=== PATIENT | male | born 1935 | race Hispanic/Latino ===

== ENCOUNTER 2017-05-06 07:07 | Day surgery (SDC) | payer MEDICARE ==
[2017-05-06] MEDS ORDERED: Lactated Ringer's 500 ML IV ONE (07:37)
[2017-05-06] MEDS ORDERED: Propofol 10 mg/ml Inj (20 ML) ONE (07:46)
[2017-05-06] MEDS ORDERED: Etomidate 20 mg/10ml Inj IV ONE (07:46)
[2017-05-06] MEDS ORDERED: Midazolam 2 MG/2 ML VIAL ONE (07:46)
[2017-05-06 08:48] LABS: BASO % 0.4 % (0.0-2.0); EOS % 0.6 % (0.0-4.0); HEMATOCRIT 32.2 % (35.0-51.0); LYMPH # 0.9 K/uL (1.0-4.3); LYMPH % 11.3 % (20.0-40.0); MEAN CELL VOLUME 76.8 fl (80.0-94.0); MEAN CORPUSCULAR HEMOGLOBIN 23.1 pg (27.0-31.0); MEAN CORPUSCULAR HGB CONC 30.1 g/dL (33.0-37.0); MEAN PLATELET VOLUME 8.3 fl (7.2-11.7); MONO # 0.7 K/uL (0.0-0.8); MONO % 9.4 % (0.0-10.0); NEUT % 78.3 % (50.0-75.0); RED CELL DISTRIBUTION WIDTH 16.7 % (11.5-14.5); WHITE BLOOD COUNT 7.6 K/uL (4.8-10.8)
[2017-05-06 09:00] LABS: ALKALINE PHOSPHATASE 80 U/L (38-126); ALT/SGPT 28 U/L (21-72); AST/SGOT 22 U/L (17-59); BILIRUBIN,TOTAL 0.6 mg/dl (0.2-1.3); BLOOD UREA NITROGEN 26 mg/dl (9-20); CARBON DIOXIDE 30 mmol/L (22-30); CHLORIDE 103 mmol/L (98-107); GFR AFRICAN-AMERICAN > 60; GLUCOSE,RANDOM 96 mg/dL (75-110); POTASSIUM 4.9 MMOL/L (3.6-5.0); SODIUM 146 mmol/l (132-148); TOTAL PROTEIN 7.6 G/DL (6.3-8.2)
[2017-05-06 09:06] LABS: PARTIAL THROMBOPLASTIN TIME 27.2 Seconds (25.6-37.1)
[2017-05-06 11:19] VITALS: O2SAT 100
[2017-05-06 11:28] VITALS: BP 117/56; PULSE 113; RESP 24; TEMP 97
== END 2017-05-06 12:29 | disposition home or self-care (01) ==
LOC: H.ENDO 07:07
PROVIDERS: ATTEND Internal Medicine Gastroenterology
DX: K86.1 Other chronic pancreatitis (principal); R63.4 Abnormal weight loss; I48.91 Unspecified atrial fibrillation; E78.5 Hyperlipidemia, unspecified; I10 Essential (primary) hypertension; J43.9 Emphysema, unspecified; K57.30 Diverticulosis of large intestine without perforation or abscess without bleeding; K64.2 Third degree hemorrhoids; D49.0 Neoplasm of unspecified behavior of digestive system; D12.5 Benign neoplasm of sigmoid colon
CPT/HCPCS: 36415; 43239; 45380; 45385; 80053; 85025; 85610; 85730; 88305; J2001; J2250; J2704; J3010; J7120

== ENCOUNTER 2017-05-20 12:51 | Day surgery (SDC) | payer MEDICARE ==
[2017-05-20] MEDS ORDERED: ceFAZolin 1 GM in Sodium Chloride 0.9% 100 ML IVPB ONE (15:10)
[2017-05-20] MEDS ORDERED: Lidocaine 1% Inj (20ml) ONE (15:12)
[2017-05-20] MEDS ORDERED: Lidocaine 2% w Epi 1:100,000 Inj IJ ONE (15:12)
--- NOTE | 2017-05-20 15:13 | CP.SDSHP ---
Same Day Surgery H & P - History Proposed Procedure: Port placement Pre-Op Diagnosis: Colon cancer - Allergies Allergies: Allergies No Known Allergies Allergy (Verified 08/30/16 14:24) - Physical Exam Vital Signs: Vital Signs 05/20/17 05/20/17 13:34 13:38 Temperature 98.2 F Pulse Rate 98 H Pulse Rate [ 98 H Bilateral Radial] Respiratory 20 20 Rate Blood Pressure 126/75 O2 Sat by Pulse 100 100 Oximetry Mental Status: Alert & Oriented x3 Neuro: WNL Heart: WNL Lungs: WNL GI: WNL - Impression Impression: Pt with colon cancer referred for port placement. Plan port placement. Informed consent and risk of bleeding, infection, port incision dehiscence explained to the patient. Pt. Evaluated Today:Candidate for Anesthesia & Procedure: Yes (ASA 3 Malampati 3) Short Stay Discharge - Short Stay Discharge Admitting Diagnosis/Reason for Visit: COLON CA, C18.9 Referrals: Solomon Alamo MD [Primary Care Provider] -
[2017-05-20] MEDS ORDERED: Propofol 10 mg/ml Inj (20 ML) ONE (15:43)
[2017-05-20] MEDS ORDERED: Metoprolol 1 mg/ml Inj IVP ONE (15:47)
--- NOTE | 2017-05-20 16:18 | PCM.SURG1 ---
Surgeon's Initial Post Op Note - Surgeon's Notes Surgeon: Lionel Lambert MD Power Generation Technician: None Type of Anesthesia: IV Sedation Pre-Operative Diagnosis: Colon cancer Operative Findings: Patent right IJV Post-Operative Diagnosis: Colon cancer Operation Performed: Port placement right IJV. Tip on catheter is in the SVC. Specimen/Specimens Removed: None Estimated Blood Loss: EBL {In ML}: 4 Blood Products Given: N/A Drains Used: No Drains Post-Op Condition: Fair Date of Surgery/Procedure: 05/20/17 Time of Surgery/Procedure: 16:15
[2017-05-20] MEDS ORDERED: Lactated Ringer's 1,000 ML IV ONE (16:25)
[2017-05-20 18:29] VITALS: BP 116/78; PULSE 99; RESP 18; TEMP 98
[2017-05-20 18:33] VITALS: O2SAT 94
--- NOTE | 2017-05-21 11:46 | VASCULAR ---
PROCEDURE: Date of procedure: 05/20/2017 Procedure: 1. Placement of a right IJ port catheter with ultrasound and fluoroscopic guidance, CPT 04189 2. Catheter tip confirmation with spot radiograph in the superior vena cava. Medications: The patient was sedated anesthesiologist along with monitoring, Ancef 1 gm, Lidocaine 8 cc 1% w Epinephrine HISTORY: Colon cancer requiring port for chemotherapy TECHNIQUE: Following informed consent the procedure time-out, patient was placed supine on the interventional table and the right neck and chest were prepped and draped in the usual sterile fashion. Ultrasound showed a compressible right internal jugular vein. After the patient was sedated by the anesthesiologist, the skin anesthetized with 1% lidocaine with epinephrine. Under direct ultrasound guidance, the right internal jugular vein was accessed with micropuncture technique. A guidewire was then advanced under fluoroscopic guidance into the superior vena cava. An image documenting ultrasound guidance for vascular access was permanently saved. The subcutaneous tissue of patient right chest was infiltrated with 1 percent lidocaine with epinephrine. A dermatotomy was made with a 15. Scalpel. The port pocket was then created with blunt dissection using a Mattie clamp. The port pocket was flushed. A port catheter was then tunneled under the skin and out the venotomy site. The port catheter was flushed, advanced through a peel-away sheath, adjusted for length, and attached to the port. The port was placed in the port pocket. The port was flushed and locked with heparin. The port pocket was then closed with absorbable 4-0 Vicryl sutures. The port pocket and the venotomy site were reprepped with ChloraPrep. Steri-Strips were then applied to the port incision also venotomy site. A sterile dressing was then applied. Final spot radiograph showed the right IJ port catheter with tip of the port catheter in the superior vena cava. A port is functional and ready for use. IMPRESSION: Placement of right IJ port catheter. The tip of the port is in the superior vena cava.
== END 2017-05-20 18:50 | disposition home or self-care (01) ==
LOC: H.OPSURG 12:51
PROVIDERS: ATTEND Specialist
DX: C18.9 Malignant neoplasm of colon, unspecified (principal); I48.91 Unspecified atrial fibrillation; E78.5 Hyperlipidemia, unspecified; I10 Essential (primary) hypertension
CPT/HCPCS: 36415; 36561; 76937; 77001; 85610; 85730; C1751; J0690; J2001; J2704; J3010; J7120

== ENCOUNTER 2017-05-21 09:00 | Inpatient (IN) | payer MEDICARE ==
[2017-05-21 08:41] VITALS: BMI 25.0
[2017-05-21 09:53] LABS: BASO # 0.1 K/uL (0.0-0.2); BASO % 0.9 % (0.0-2.0); EOS # 0.1 K/uL (0.0-0.7); EOS % 1.4 % (0.0-4.0); HEMATOCRIT 28.9 % (35.0-51.0); LYMPH # 1.3 K/uL (1.0-4.3); LYMPH % 19.6 % (20.0-40.0); MEAN CELL VOLUME 75.5 fl (80.0-94.0); MEAN CORPUSCULAR HEMOGLOBIN 23.9 pg (27.0-31.0); MEAN CORPUSCULAR HGB CONC 31.7 g/dL (33.0-37.0); MEAN PLATELET VOLUME 8.7 fl (7.2-11.7); MONO # 0.6 K/uL (0.0-0.8); MONO % 8.8 % (0.0-10.0); NEUT # 4.6 K/uL (1.8-7.0); NEUT % 69.3 % (50.0-75.0); NRBC % 0.1 % (0.0-0.0); RED CELL DISTRIBUTION WIDTH 17.6 % (11.5-14.5); WHITE BLOOD COUNT 6.7 K/uL (4.8-10.8)
[2017-05-21] MEDS: Sodium Chloride 0.9% 500 ML IV SCH ×2 (10:00→17:38)
[2017-05-21] MEDS ORDERED: Lidocaine/Prilocaine CREAM 5GM TP SCH (10:00)
[2017-05-21] MEDS ORDERED: Fosaprepitant 150 MG in Sodium Chloride 0.9% 250 ML IVPB SCH (10:00)
[2017-05-21] MEDS ORDERED: Dexamethasone 10 MG in Sodium Chloride 0.9% 50 ML IVPB SCH (10:00)
[2017-05-21 10:12] LABS: ALKALINE PHOSPHATASE 82 U/L (38-126); ALT/SGPT 26 U/L (21-72); AST/SGOT 20 U/L (17-59); BILIRUBIN,TOTAL 0.4 mg/dl (0.2-1.3); BLOOD UREA NITROGEN 27 mg/dl (9-20); CALCIUM 9.4 mg/dL (8.4-10.2); CARBON DIOXIDE 29 mmol/L (22-30); CHLORIDE 102 mmol/L (98-107); GFR AFRICAN-AMERICAN > 60; GLUCOSE,RANDOM 126 mg/dL (75-110); SODIUM 144 mmol/l (132-148); TOTAL PROTEIN 7.1 G/DL (6.3-8.2)
[2017-05-21] MEDS ORDERED: WATER IVPB SCH (10:15)
[2017-05-21] MEDS ORDERED: LEUCOVORIN CALCIUM IVPB SCH (10:15)
[2017-05-21] MEDS ORDERED: DEXTROSE 5% IVPB SCH (10:15)
[2017-05-21] MEDS ORDERED: OXALIPLATIN IV SCH (10:30)
[2017-05-21] MEDS ORDERED: DEXTROSE 5% IV SCH (10:30)
[2017-05-21] MEDS ORDERED: WATER IV SCH (10:30)
[2017-05-21 10:41] LABS: CARCINOEMBRYONIC ANTIGEN 17.7 ng/mL (0-3.0)
[2017-05-21] MEDS ORDERED: FLUOROURACIL IV SCH ×2 (11:30→11:45)
[2017-05-21] MEDS ORDERED: SODIUM CHLORIDE 0.9% IV SCH ×2 (11:30→11:45)
[2017-05-21] MEDS: Pantoprazole 40 mg EC Tab PO SCH (13:45)
--- NOTE | 2017-05-21 14:34 | CP.PCM.PN ---
Objective - Vital Signs/Intake and Output Vital Signs (last 24 hours): Temp Pulse Resp BP Pulse Ox 97.5 F L 87 20 116/66 96 05/21/17 13:44 05/21/17 13:44 05/21/17 13:44 05/21/17 13:44 05/21/17 13:44 - Medications Medications: Current Medications Amylase (Pancrease 16857 U-5000 U-06513 U) 5,000 u PO DAILY [facility] Atorvastatin Calcium (Lipitor) 20 mg PO DAILY [facility] Enoxaparin Sodium (Lovenox) 40 mg SC DAILY [facility] PRN Reason: Protocol Home Med (Lipase/Protease/Amylase [Zenpep Dr 15,000 Units Capsule]) 1 cap PO DAILY [facility] Hydrochlorothiazide (Microzide) 12.5 mg PO DAILY [facility] Diphenhydramine HCl 25 mg/ (Sodium Chloride) 50.5 mls @ 101 mls/hr IVPB ONCE [facility] Stop: 05/21/17 17:00 Last Admin: 05/21/17 10:42 Dose: 101 mls/hr Dexamethasone 10 mg/ Sodium (Chloride) 51 mls @ 102 mls/hr IVPB ONCE [facility] Stop: 05/21/17 17:00 Last Admin: 05/21/17 10:40 Dose: 102 mls/hr Oxaliplatin 144 mg/ Dextrose 278.8 mls @ 139.4 mls/hr IV ONCE [facility] PRN Reason: As Directed Stop: 05/21/17 17:00 Last Admin: 05/21/17 13:08 Dose: 139.4 mls/hr Fosaprepitant 150 mg/ Sodium (Chloride) 250 mls @ 500 mls/hr IVPB ONCE [facility] Stop: 05/21/17 17:00 Last Admin: 05/21/17 12:05 Dose: 500 mls/hr Fluorouracil 680 mg/ Sodium (Chloride) 113.6 mls @ 227.2 mls/hr IV ONCE [facility] PRN Reason: As Directed Stop: 05/21/17 17:00 Leucovorin Calcium 680 mg/ (Dextrose) 284 mls @ 568 mls/hr IVPB ONCE [facility] PRN Reason: As Directed Stop: 05/21/17 17:00 Last Admin: 05/21/17 13:08 Dose: 568 mls/hr Sodium Chloride (Sodium Chloride 0.9%) 500 mls @ 80 mls/hr IV .Q6H15M [facility] Last Admin: 05/21/17 10:00 Dose: 80 mls/hr Ondansetron HCl 16 mg/ Sodium (Chloride) 58 mls @ 116 mls/hr IVPB ONCE [facility] Stop: 05/21/17 17:00 Last Admin: 05/21/17 10:15 Dose: 116 mls/hr Fluorouracil 4,080 mg/ Sodium (Chloride) 1,081.6 mls @ 24.582 mls/hr IV ONCE [facility] PRN Reason: As Directed Stop: 05/23/17 11:45 Famotidine 20 mg/ Sodium (Chloride) 52 mls @ 104 mls/hr IVP ONCE [facility] Stop: 05/21/17 17:00 Last Admin: 05/21/17 10:43 Dose: 104 mls/hr Lidocaine/Prilocaine (Lidocaine/Prilocaine 2.5%-2.5%) 1 applic TP ONCE [facility] Stop: 05/21/17 17:00 Losartan Potassium (Cozaar) 50 mg PO DAILY [facility] Metoprolol Tartrate (Lopressor) 25 mg PO Q12 [facility] Pantoprazole Sodium (Protonix Ec Tab) 40 mg PO DAILY [facility] - Labs Labs: 05/21/17 09:47 05/21/17 09:47
--- NOTE | 2017-05-21 15:11 | CP.PCM.CON ---
History of Present Illness - History of Present Illness History of Present Illness: This is a 81 yrs old male who is admitted for chemotherapy for colon cancer Pt was admitted to [facility] [place] twice during the last 5 months for abdominal pain. He was again admitted in march with overflow diarrhea. He had lost 30 lbs and was dehydrated. A colonoscopy was done and he was found to have a 10 cm mass in the rectosigmoid area. There was evidence of peripheral stranding in that area, and ? tiny nodules in the liver. It is unclear if these are tumor or ysts.. Because the tumor was inoperable, he is going to receive neoadjuvant chemotherapy with oxaliplatin .leucovorin, and fluorouracil. At this time he has no complaints, his appetite is slowly improving. He has a past h/o A fib, HTN, HE is not a smoker since the past 20 yrs. , He does have a h/o drinking moderate amounts of alcohol Past Patient History - Past Medical History & Family History Past Medical History?: Yes - Past Social History Smoking Status: Former Smoker - CARDIAC Hx Cardiac Disorders: Yes Hx Hypercholesterolemia: Yes Hx Hypertension: Yes - PULMONARY Hx Respiratory Disorders: Yes Hx Emphysema: Yes - NEUROLOGICAL Hx Neurological Disorder: No - HEENT Hx HEENT Problems: Yes Hx Cataracts: Yes (had sx) - RENAL Hx Chronic Kidney Disease: No - ENDOCRINE/METABOLIC Hx Endocrine Disorders: No - HEMATOLOGICAL/ONCOLOGICAL Hx Blood Disorders: Yes Hx Chemotherapy: Yes (started today 05/21/17) - INTEGUMENTARY Hx Dermatological Problems: No - MUSCULOSKELETAL/RHEUMATOLOGICAL Hx Musculoskeletal Disorders: No Hx Falls: No - GASTROINTESTINAL Hx Gastrointestinal Disorders: Yes Hx Pancreatitis: Yes (CHRONIC) - GENITOURINARY/GYNECOLOGICAL Hx Genitourinary Disorders: No - PSYCHIATRIC Hx Psychophysiologic Disorder: No Hx Emotional Abuse: No Hx Physical Abuse: No Hx Substance Use: No - SURGICAL HISTORY Hx Surgeries: Yes Other/Comment: hernia left inguinal,cataracts [place]orges - ANESTHESIA Hx Anesthesia: Yes Hx Anesthesia Reactions: No Hx Malignant Hyperthermia: No Meds Allergies/Adverse Reactions: Allergies Allergy/AdvReac Type Severity Reaction Status Date / Time No Known Allergies Allergy Verified 05/21/17 08:41 - Medications Medications: Current Medications Amylase (Pancrease 90893 U-5000 U-27807 U) 5,000 u PO DAILY [facility] Atorvastatin Calcium (Lipitor) 20 mg PO DAILY [facility] Enoxaparin Sodium (Lovenox) 40 mg SC DAILY [facility] PRN Reason: Protocol Home Med (Lipase/Protease/Amylase [Zenpep Dr 15,000 Units Capsule]) 1 cap PO DAILY [facility] Hydrochlorothiazide (Microzide) 12.5 mg PO DAILY [facility] Diphenhydramine HCl 25 mg/ (Sodium Chloride) 50.5 mls @ 101 mls/hr IVPB ONCE [facility] Stop: 05/21/17 17:00 Last Admin: 05/21/17 10:42 Dose: 101 mls/hr Dexamethasone 10 mg/ Sodium (Chloride) 51 mls @ 102 mls/hr IVPB ONCE [facility] Stop: 05/21/17 17:00 Last Admin: 05/21/17 10:40 Dose: 102 mls/hr Oxaliplatin 144 mg/ Dextrose 278.8 mls @ 139.4 mls/hr IV ONCE [facility] PRN Reason: As Directed Stop: 05/21/17 17:00 Last Admin: 05/21/17 13:08 Dose: 139.4 mls/hr Fosaprepitant 150 mg/ Sodium (Chloride) 250 mls @ 500 mls/hr IVPB ONCE [facility] Stop: 05/21/17 17:00 Last Admin: 05/21/17 12:05 Dose: 500 mls/hr Fluorouracil 680 mg/ Sodium (Chloride) 113.6 mls @ 227.2 mls/hr IV ONCE [facility] PRN Reason: As Directed Stop: 05/21/17 17:00 Leucovorin Calcium 680 mg/ (Dextrose) 284 mls @ 568 mls/hr IVPB ONCE [facility] PRN Reason: As Directed Stop: 05/21/17 17:00 Last Admin: 05/21/17 13:08 Dose: 568 mls/hr Sodium Chloride (Sodium Chloride 0.9%) 500 mls @ 80 mls/hr IV .Q6H15M [facility] Last Admin: 05/21/17 10:00 Dose: 80 mls/hr Ondansetron HCl 16 mg/ Sodium (Chloride) 58 mls @ 116 mls/hr IVPB ONCE [facility] Stop: 05/21/17 17:00 Last Admin: 05/21/17 10:15 Dose: 116 mls/hr Fluorouracil 4,080 mg/ Sodium (Chloride) 1,081.6 mls @ 24.582 mls/hr IV ONCE [facility] PRN Reason: As Directed Stop: 05/23/17 11:45 Famotidine 20 mg/ Sodium (Chloride) 52 mls @ 104 mls/hr IVP ONCE [facility] Stop: 05/21/17 17:00 Last Admin: 05/21/17 10:43 Dose: 104 mls/hr Lidocaine/Prilocaine (Lidocaine/Prilocaine 2.5%-2.5%) 1 applic TP ONCE [facility] Stop: 05/21/17 17:00 Losartan Potassium (Cozaar) 50 mg PO DAILY [facility] Metoprolol Tartrate (Lopressor) 25 mg PO Q12 [facility] Pantoprazole Sodium (Protonix Ec Tab) 40 mg PO DAILY [facility] Physical Exam - Additional Findings Additional findings: Physical Exam; Alert, well oriented, in no acute distress neck supple, no adenopathy Chest; Clear, no rales or rhonchi Heart; RSR, no murmur Abd; Soft, no mass. no h.s megaly Results - Vital Signs Recent Vital Signs: Last Vital Signs Temp 97.5 F L 05/21/17 13:44 Pulse 60 05/21/17 14:14 Resp 20 05/21/17 13:44 BP 116/66 05/21/17 13:44 Pulse Ox 96 05/21/17 13:44 - Labs Result Diagrams: 05/21/17 09:47 05/21/17 09:47 Labs: Laboratory Results - last 24 hr 05/21/17 05/21/17 09:47 09:47 WBC 6.7 RBC 3.83 L Hgb 9.2 L Hct 28.9 L MCV 75.5 L MCH 23.9 L MCHC 31.7 L RDW 17.6 H Plt Count 219 MPV 8.7 Neut % (Auto) 69.3 Lymph % (Auto) 19.6 L [place] % (Auto) 8.8 Eos % (Auto) 1.4 Baso % (Auto) 0.9 Neut # 4.6 Lymph # 1.3 Ada # 0.6 Eos # 0.1 Baso # 0.1 Sodium 144 Potassium 4.0 Chloride 102 Carbon Dioxide 29 Anion Gap 17 BUN 27 H Creatinine 0.8 Est GFR ( Amer) > 60 Est GFR (Non-Af Amer) > 60 Random Glucose 126 H Calcium 9.4 Total Bilirubin 0.4 AST 20 ALT 26 Alkaline Phosphatase 82 Total Protein 7.1 Albumin 3.5 Globulin 3.6 Albumin/Globulin Ratio 1.0 Carcinoembryonic Ag 17.7 H Assessment & Plan - Assessment and Plan (Free Text) Assessment: Impression; Colon cancer Plan: Plan; Will start pt on chemotherapy with FOLFOX today, and continue fluorouracil as continuous infusion over 44 hrs. - Date & Time Date: 05/21/17 Time: 16:10
[2017-05-21] MEDS ORDERED: Albuterol 0.083% Inhal Sol (2.5 mg/3 mL) UD INH PRN (15:15)
--- NOTE | 2017-05-21 17:21 | CP.PCM.HP ---
History of Present Illness - History of Present Illness History of Present Illness: 80 year old male with PMH of atrial fibrillation currently not on coumadin, HTN , HLD, and recently diagnosed colon CA on 05/06/17 admitted to [facility] for first cycle of chemotherapy. Pt had colonoscopy done on 05/06/17 which showed frond- like/villous, fungating, infiltrative and ulcerated partially obstructing 10 cm mass in the recto-sigmoid colon and sigmoid colon area. There was also 20 mm polyps found in the sigmoid colon. The biopsy showed colonic adenocarcinoma. Pt reports mild abdominal pain today. Denies diarrhea, constipation, rectal bleeding, fever, chills, nausea, vomiting, dizziness or headache. Pt reports decreased appetite but states it's improving. Pt is going to receive adjuvent chemotherapy with oxiplatin, leucovorin, and fluorouracil. PCP: Dr. Solomon Alamo ( no visit on eCW with Dr. Alamo) Patcher Bowling Ball: Dr. Laila Bermeo Protective Signal Repairer/Oncologist: Dr. Eduardo Bermeo PMH: Afib ( currently not on coumadin) HTN and HLD Meds: Metoprolol 25mg BID, Simvastatin 20mg daily, Valsartan-HCTZ 160-12.5 mg daily, Omeprazole 40 mg daily and zenpep 15,000 units capsule/day. Surgical Hx: Umbilical hernia repair 2006 and cataract surgery. Family Hx: father was diagnosed with colon CA at age 81 and paternal uncle diagnosed with lung CA at age 80. Social Hx: former smoker, quit 20 years ago, used to smoke 1 PPD x 40 years. Drinks alcohol socially. Denies drug use. Present on Admission - Present on Admission Any Indicators Present on Admission: Yes Review of Systems - Constitutional Constitutional: Anorexia, Weight Loss - EENT Eyes: absent: Other Visual Disturbances Ears: absent: Decreased Hearing Nose/Mouth/Throat: absent: Dysphagia - Cardiovascular Cardiovascular: Dyspnea on Exertion. absent: Chest Pain, Dyspnea - Respiratory Respiratory: absent: Cough, Dyspnea - Gastrointestinal Gastrointestinal: Abdominal Pain. absent: Diarrhea, Vomiting - Genitourinary Genitourinary: absent: Dysuria, Hematuria - Musculoskeletal Musculoskeletal: absent: Joint Swelling - Integumentary Integumentary: absent: Bleeding Lesions, Swelling - Neurological Neurological: absent: Dizziness, Headaches - Hematologic/Lymphatic Hematologic: absent: Easy Bleeding, Easy Bruising Past Patient History - Past Medical History & Family History Past Medical History?: Yes - Past Social History Smoking Status: Former Smoker - CARDIAC Hx Cardiac Disorders: Yes Hx Hypercholesterolemia: Yes Hx Hypertension: Yes - PULMONARY Hx Respiratory Disorders: Yes Hx Emphysema: Yes - NEUROLOGICAL Hx Neurological Disorder: No - HEENT Hx HEENT Problems: Yes Hx Cataracts: Yes (had sx) - RENAL Hx Chronic Kidney Disease: No - ENDOCRINE/METABOLIC Hx Endocrine Disorders: No - HEMATOLOGICAL/ONCOLOGICAL Hx Blood Disorders: Yes Hx Chemotherapy: Yes (started today 05/21/17) - INTEGUMENTARY Hx Dermatological Problems: No - MUSCULOSKELETAL/RHEUMATOLOGICAL Hx Musculoskeletal Disorders: No Hx Falls: No - GASTROINTESTINAL Hx Gastrointestinal Disorders: Yes Hx Pancreatitis: Yes (CHRONIC) - GENITOURINARY/GYNECOLOGICAL Hx Genitourinary Disorders: No - PSYCHIATRIC Hx Psychophysiologic Disorder: No Hx Emotional Abuse: No Hx Physical Abuse: No Hx Substance Use: No - SURGICAL HISTORY Hx Surgeries: Yes Other/Comment: hernia left inguinal,cataracts [place]es - ANESTHESIA Hx Anesthesia: Yes Hx Anesthesia Reactions: No Hx Malignant Hyperthermia: No Meds Allergies/Adverse Reactions: Allergies Allergy/AdvReac Type Severity Reaction Status Date / Time No Known Allergies Allergy Verified 05/21/17 08:41 Physical Exam - Constitutional Appears: No Acute Distress, Cachectic - Head Exam Head Exam: NORMAL INSPECTION, NORMOCEPHALIC - Eye Exam Eye Exam: Normal appearance - ENT Exam ENT Exam: Mucous Membranes Moist - Neck Exam Neck exam: Positive for: Normal Inspection - Respiratory Exam Respiratory Exam: Clear to Auscultation Bilateral, NORMAL BREATHING PATTERN. absent: Rales, Rhonchi, Wheezes - Cardiovascular Exam Cardiovascular Exam: REGULAR RHYTHM, RRR, +S1, +S2 - GI/Abdominal Exam GI & Abdominal Exam: Normal Bowel Sounds, Soft. absent: Tenderness - Extremities Exam Extremities exam: Positive for: normal capillary refill. Negative for: pedal edema - Neurological Exam Neurological exam: Alert, Normal Gait, Oriented x3 - Psychiatric Exam Psychiatric exam: Normal Affect, Normal Mood Results - Vital Signs Recent Vital Signs: Last Vital Signs Temp 97.6 F 05/21/17 16:28 Pulse 98 H 05/21/17 16:28 Resp 20 05/21/17 16:28 BP 120/75 05/21/17 16:28 Pulse Ox 97 05/21/17 16:28 - Labs Result Diagrams: 05/21/17 09:47 05/21/17 09:47 Labs: Laboratory Results - last 24 hr 05/21/17 05/21/17 09:47 09:47 WBC 6.7 RBC 3.83 L Hgb 9.2 L Hct 28.9 L MCV 75.5 L MCH 23.9 L MCHC 31.7 L RDW 17.6 H Plt Count 219 MPV 8.7 Neut % (Auto) 69.3 Lymph % (Auto) 19.6 L [place] % (Auto) 8.8 Eos % (Auto) 1.4 Baso % (Auto) 0.9 Neut # 4.6 Lymph # 1.3 [place] # 0.6 Eos # 0.1 Baso # 0.1 Sodium 144 Potassium 4.0 Chloride 102 Carbon Dioxide 29 Anion Gap 17 BUN 27 H Creatinine 0.8 Est GFR ( Amer) > 60 Est GFR (Non-Af Amer) > 60 Random Glucose 126 H Calcium 9.4 Total Bilirubin 0.4 AST 20 ALT 26 Alkaline Phosphatase 82 Total Protein 7.1 Albumin 3.5 Globulin 3.6 Albumin/Globulin Ratio 1.0 Carcinoembryonic Ag 17.7 H Assessment & Plan - Assessment and Plan (Free Text) Assessment: Assessment and plan: 81 y/o male PMH hx HTN, hyperlipidemia, atrial fibrillation and recently diagnosed with colon CA admitted to [facility] for chemotherapy. 1. Colon adenocarcinoma - Hematology/oncology Dr. Eduardo Bermeo on board. - Will received chemotherapy with oxaliplatin, leucovorin and fluorouracil. 2. Hypertension -Stable -Start HCTZ 12.5 mg PO daily -Start losartan 50 PO daily -Start metoprolol tartrate 25 mg PO BID 3. Hyperlipidemia -Start atrovastatin 20 mg po daily 4. Chronic gastritis -Start pantoprazole 40 mg PO daily. 5. History of atrial fibrillation -stable -not on coumadin 6. DVT prophylaxis - Lovenox 40 mg SC daily. Diet: heart healthy diet
[2017-05-21] MEDS: Enoxaparin 40 mg Syringe SC SCH (17:40)
[2017-05-22] MEDS: Benzocaine/Menthol (Cepacol) Lozenge PO PRN ×2 (00:46→05:18)
[2017-05-22] MEDS: Sodium Chloride 0.9% 500 ML IV SCH ×3 (05:15→09:40)
[2017-05-22 07:34] LABS: HEMATOCRIT 30.2 % (35.0-51.0); MEAN CELL VOLUME 79.3 fl (80.0-94.0); MEAN CORPUSCULAR HEMOGLOBIN 24.2 pg (27.0-31.0); MEAN CORPUSCULAR HGB CONC 30.6 g/dL (33.0-37.0); RED CELL DISTRIBUTION WIDTH 17.8 % (11.5-14.5); WHITE BLOOD COUNT 4.9 K/uL (4.8-10.8)
[2017-05-22 07:49] LABS: BLOOD UREA NITROGEN 27 mg/dl (9-20); CALCIUM 9.3 mg/dL (8.4-10.2); CARBON DIOXIDE 29 mmol/L (22-30); CHLORIDE 103 mmol/L (98-107); GFR AFRICAN-AMERICAN > 60; GLUCOSE,RANDOM 126 mg/dL (75-110); POTASSIUM 5.7 MMOL/L (3.6-5.0); SODIUM 144 mmol/l (132-148)
[2017-05-22 07:59] LABS: PARTIAL THROMBOPLASTIN TIME 27.8 Seconds (25.6-37.1)
--- NOTE | 2017-05-22 08:12 | CP.PCM.PN ---
Subjective - Date & Time of Evaluation Date of Evaluation: 05/22/17 Time of Evaluation: 08:11 - Subjective Subjective: Pt is on the second day of the fluorouracil infusion. He has not had any side effects from the chemo. He will be discharged tomorrow after the infusion finishes Objective - Vital Signs/Intake and Output Vital Signs (last 24 hours): Temp Pulse Resp BP Pulse Ox 97.8 F 96 H 20 143/83 98 05/22/17 08:04 05/22/17 08:04 05/22/17 08:04 05/22/17 08:04 05/22/17 08:04 - Medications Medications: Current Medications Albuterol Sulfate (Albuterol 0.083% Inhal [place] (2.5 Mg/3 Ml) Ud) 2.5 mg INH RQ6 PRN PRN Reason: Shortness of Breath Last Admin: 05/21/17 19:14 Dose: 2.5 mg Amylase (Pancrease 34796 U-5000 U-87002 U) 5,000 u PO DAILY [facility] Atorvastatin Calcium (Lipitor) 20 mg PO DAILY [facility] Last Admin: 05/21/17 13:45 Dose: Not Given Benzocaine/Menthol (Cepacol Sore Throat) 1 viry PO Q2 PRN PRN Reason: Sore Throat Last Admin: 05/22/17 05:18 Dose: 1 viry Enoxaparin Sodium (Lovenox) 40 mg SC DAILY [facility] PRN Reason: Protocol Last Admin: 05/21/17 17:40 Dose: 40 mg Home Med (Lipase/Protease/Amylase [Zenpep Dr 15,000 Units Capsule]) 1 cap PO DAILY [facility] Hydrochlorothiazide (Microzide) 12.5 mg PO DAILY [facility] Last Admin: 05/21/17 13:45 Dose: Not Given Sodium Chloride (Sodium Chloride 0.9%) 500 mls @ 80 mls/hr IV .Q6H15M [facility] Last Admin: 05/22/17 05:16 Dose: Not Given Fluorouracil 4,080 mg/ Sodium (Chloride) 1,081.6 mls @ 24.582 mls/hr IV ONCE [facility] PRN Reason: As Directed Stop: 05/23/17 11:45 Last Admin: 05/21/17 15:42 Dose: 24.582 mls/hr Losartan Potassium (Cozaar) 50 mg PO DAILY [facility] Last Admin: 05/21/17 13:45 Dose: Not Given Metoprolol Tartrate (Lopressor) 25 mg PO Q12 [facility] Last Admin: 05/21/17 21:27 Dose: 25 mg Pantoprazole Sodium (Protonix Ec Tab) 40 mg PO DAILY [facility] Last Admin: 05/21/17 13:45 Dose: Not Given - Labs Labs: 05/22/17 06:50 05/22/17 06:50 PT 12.1 Seconds (9.8-13.1) 05/22/17 06:50 INR 1.2 (0.9-1.2) 05/22/17 06:50 APTT 27.8 Seconds (25.6-37.1) 05/22/17 06:50
--- NOTE | 2017-05-22 08:52 | CP.PCM.PN ---
Subjective - Date & Time of Evaluation Date of Evaluation: 05/22/17 Time of Evaluation: 07:50 - Subjective Subjective: 81 yo male seen and examined at bedside this morning. Pt is eating and drinking regularly. Has normal BM and voiding. Denies nausea, vomiting, headache, dizzines, chest pain, dyspnea or any side effects from chemotherapy. Had uneventful night. vitals WNL. Objective - Vital Signs/Intake and Output Vital Signs (last 24 hours): Temp Pulse Resp BP Pulse Ox 97.8 F 96 H 20 143/83 98 05/22/17 08:04 05/22/17 08:04 05/22/17 08:04 05/22/17 08:04 05/22/17 08:04 - Medications Medications: Current Medications Albuterol Sulfate (Albuterol 0.083% Inhal [place] (2.5 Mg/3 Ml) Ud) 2.5 mg INH RQ6 PRN PRN Reason: Shortness of Breath Last Admin: 05/21/17 19:14 Dose: 2.5 mg Amylase (Pancrease 64255 U-5000 U-50954 U) 5,000 u PO DAILY [facility] Atorvastatin Calcium (Lipitor) 20 mg PO DAILY [facility] Last Admin: 05/21/17 13:45 Dose: Not Given Benzocaine/Menthol (Cepacol Sore Throat) 1 viry PO Q2 PRN PRN Reason: Sore Throat Last Admin: 05/22/17 05:18 Dose: 1 viry Enoxaparin Sodium (Lovenox) 40 mg SC DAILY [facility] PRN Reason: Protocol Last Admin: 05/21/17 17:40 Dose: 40 mg Home Med (Lipase/Protease/Amylase [Zenpep Dr 15,000 Units Capsule]) 1 cap PO DAILY [facility] Hydrochlorothiazide (Microzide) 12.5 mg PO DAILY [facility] Last Admin: 05/21/17 13:45 Dose: Not Given Sodium Chloride (Sodium Chloride 0.9%) 500 mls @ 80 mls/hr IV .Q6H15M [facility] Last Admin: 05/22/17 05:16 Dose: Not Given Fluorouracil 4,080 mg/ Sodium (Chloride) 1,081.6 mls @ 24.582 mls/hr IV ONCE [facility] PRN Reason: As Directed Stop: 05/23/17 11:45 Last Admin: 09/27/17 15:42 Dose: 24.582 mls/hr Losartan Potassium (Cozaar) 50 mg PO DAILY [facility] Last Admin: 05/21/17 13:45 Dose: Not Given Metoprolol Tartrate (Lopressor) 25 mg PO Q12 [facility] Last Admin: 05/21/17 21:27 Dose: 25 mg Pantoprazole Sodium (Protonix Ec Tab) 40 mg PO DAILY [facility] Last Admin: 05/21/17 13:45 Dose: Not Given - Labs Labs: 05/22/17 06:50 05/22/17 06:50 PT 12.1 Seconds (9.8-13.1) 05/22/17 06:50 INR 1.2 (0.9-1.2) 05/22/17 06:50 APTT 27.8 Seconds (25.6-37.1) 05/22/17 06:50 - Constitutional Appears: Well, No Acute Distress - Head Exam Head Exam: NORMAL INSPECTION - Eye Exam Eye Exam: Normal appearance - ENT Exam ENT Exam: Mucous Membranes Moist - Neck Exam Neck Exam: Normal Inspection - Respiratory Exam Respiratory Exam: Clear to Ausculation Bilateral. absent: Rales, Rhonchi, Wheezes - Cardiovascular Exam Cardiovascular Exam: REGULAR RHYTHM, RRR, +S1, +S2 - GI/Abdominal Exam GI & Abdominal Exam: Soft, Normal Bowel Sounds. absent: Tenderness - Extremities Exam Extremities Exam: Normal Capillary Refill. absent: Calf Tenderness, Pedal Edema - Neurological Exam Neurological Exam: Alert, Awake, Oriented x3 - Psychiatric Exam Psychiatric exam: Normal Affect, Normal Mood Assessment and Plan - Assessment and Plan (Free Text) Assessment: Assessment and plan: 81 y/o male PMH hx HTN, hyperlipidemia, atrial fibrillation and recently diagnosed with colon CA admitted to [facility] for chemotherapy. 1. 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 Eduardo Bermeo on board. - receiving 5-FU infusion( 2nd day). 2. Hyperkalemia -Asymptomatic -K 5.7 -repeat K -IV fluids -albuterol tx -decreased losartan to 25 mg today -will consider d/c losartan if potassium continues to increase/stay elevated. 3. Hypertension -Stable -Continue HCTZ 12.5 mg PO daily -Decrease losartan to 25 mg PO daily -Continue metoprolol tartrate 25 mg PO BID 4. Hyperlipidemia - Stopped atrovastatin 20 mg due to BMI and age. 5. Chronic gastritis -Continue pantoprazole 40 mg PO daily. 6. History of atrial fibrillation -stable -not on meds 7. DVT prophylaxis -Lovenox 40 mg SC daily. Diet: heart healthy diet
[2017-05-22] MEDS ORDERED: LIPASE PO SCH (09:00)
[2017-05-22] MEDS ORDERED: AMYLASE PO SCH (09:00)
[2017-05-22] MEDS ORDERED: PROTEASE PO SCH (09:00)
[2017-05-22] MEDS ORDERED: Albuterol 0.083% Inhal Sol (2.5 mg/3 mL) UD INH ONE (09:34)
[2017-05-22] MEDS: Amylase/Lipase/Protease 5,000 U ECC PO SCH (09:39)
[2017-05-22] MEDS: Pantoprazole 40 mg EC Tab PO SCH (09:39)
[2017-05-22] MEDS: Enoxaparin 40 mg Syringe SC SCH (09:39)
[2017-05-23 01:05] VITALS: RESP 19
[2017-05-23] MEDS: Sodium Chloride 0.9% 500 ML IV SCH (02:33)
[2017-05-23] MEDS: Benzocaine/Menthol (Cepacol) Lozenge PO PRN (04:44)
[2017-05-23 06:26] LABS: BLOOD UREA NITROGEN 35 mg/dl (9-20); CARBON DIOXIDE 29 mmol/L (22-30); CHLORIDE 101 mmol/L (98-107); GFR AFRICAN-AMERICAN > 60; GLUCOSE,RANDOM 109 mg/dL (75-110); SODIUM 141 mmol/l (132-148)
[2017-05-23 06:27] LABS: POTASSIUM 5.4 MMOL/L (3.6-5.0)
--- NOTE | 2017-05-23 07:56 | CP.PCM.PN ---
Subjective - Date & Time of Evaluation Date of Evaluation: 05/23/17 Time of Evaluation: 07:52 - Subjective Subjective: Pt has no nausea or vomiting during the chemotherapy . He has finished the fluorocil inrfusion, and can be discharged. He will return to the infusion center on 05/28/17 for a blood test and in 2 weeks for te ext course of chemotherapy. I would give him a prescription for a few tablets of zofran po in case he has any ausea at home. Objective - Vital Signs/Intake and Output Vital Signs (last 24 hours): Temp Pulse Resp BP Pulse Ox 98.0 F 91 H 19 120/81 98 05/23/17 00:00 05/23/17 00:00 05/23/17 00:00 05/23/17 00:00 05/23/17 00:00 - Medications Medications: Current Medications Albuterol Sulfate (Albuterol 0.083% Inhal [place] (2.5 Mg/3 Ml) Ud) 2.5 mg INH RQ6 PRN PRN Reason: Shortness of Breath Last Admin: 05/21/17 19:14 Dose: 2.5 mg Amylase (Pancrease 98058 U-5000 U-11032 U) 5,000 u PO DAILY [facility] Last Admin: 05/22/17 09:39 Dose: 5,000 u Benzocaine/Menthol (Cepacol Sore Throat) 1 viry PO Q2 PRN PRN Reason: Sore Throat Last Admin: 05/23/17 04:44 Dose: 1 viry Enoxaparin Sodium (Lovenox) 40 mg SC DAILY [facility] PRN Reason: Protocol Last Admin: 05/22/17 09:39 Dose: 40 mg Home Med (Lipase/Protease/Amylase [Zenpep Dr 15,000 Units Capsule]) 1 cap PO DAILY [facility] Hydrochlorothiazide (Microzide) 12.5 mg PO DAILY [facility] Last Admin: 05/22/17 09:39 Dose: 12.5 mg Fluorouracil 4,080 mg/ Sodium (Chloride) 1,081.6 mls @ 24.582 mls/hr IV ONCE [facility] PRN Reason: As Directed Stop: 05/23/17 11:45 Last Admin: 05/21/17 15:42 Dose: 24.582 mls/hr Sodium Chloride (Sodium Chloride 0.9%) 500 mls @ 100 mls/hr IV .Q[facility]H [facility] Last Admin: 05/23/17 02:33 Dose: Not Given Metoprolol Tartrate (Lopressor) 25 mg PO Q12 [facility] Last Admin: 05/22/17 20:50 Dose: 25 mg Pantoprazole Sodium (Protonix Ec Tab) 40 mg PO DAILY [facility] Last Admin: 05/22/17 09:39 Dose: 40 mg - Labs Labs: 05/22/17 06:50 05/23/17 05:50 PT 12.1 Seconds (9.8-13.1) 05/22/17 06:50 INR 1.2 (0.9-1.2) 05/22/17 06:50 APTT 27.8 Seconds (25.6-37.1) 05/22/17 06:50
[2017-05-23 07:58] VITALS: BP 101/63; PULSE 64; TEMP 97.5; O2SAT 97
[2017-05-23] MEDS: Enoxaparin 40 mg Syringe SC SCH (08:18)
[2017-05-23] MEDS: Pantoprazole 40 mg EC Tab PO SCH (08:19)
[2017-05-23] MEDS: Amylase/Lipase/Protease 5,000 U ECC PO SCH (08:19)
--- NOTE | 2017-05-23 12:26 | CP.PCM.DIS ---
Provider - Provider Date of Admission: 05/21/17 09:00 Attending physician: Dulce Maria Díaz MD Primary care physician: Solomon Alamo MD Consults: Clubhouse Manager/Oncologist: Dr. Eduardo Bermeo Time Spent in preparation of Discharge (in minutes): 30 Diagnosis - Discharge Diagnosis (1) Adenocarcinoma, colon Status: Acute Hospital Course - Lab Results Lab Results: Most Recent Lab Values WBC 4.9 K/uL (4.8-10.8) 05/22/17 06:50 RBC 3.80 Mil/uL (4.40-5.90) L 05/22/17 06:50 Hgb 9.2 g/dL (12.0-18.0) L 05/22/17 06:50 Hct 30.2 % (35.0-51.0) L 05/22/17 06:50 MCV 79.3 fl (80.0-94.0) L D 05/22/17 06:50 MCH 24.2 pg (27.0-31.0) L 05/22/17 06:50 MCHC 30.6 g/dL (33.0-37.0) L 05/22/17 06:50 RDW 17.8 % (11.5-14.5) H 05/22/17 06:50 Plt Count 222 K/uL (130-400) 05/22/17 06:50 MPV 8.7 fl (7.2-11.7) 05/21/17 09:47 Neut % (Auto) 69.3 % (50.0-75.0) 05/21/17 09:47 Lymph % (Auto) 19.6 % (20.0-40.0) L 05/21/17 09:47 [facility] % (Auto) 8.8 % (0.0-10.0) 05/21/17 09:47 Eos % (Auto) 1.4 % (0.0-4.0) 05/21/17 09:47 Baso % (Auto) 0.9 % (0.0-2.0) 05/21/17 09:47 Neut # 4.6 K/uL (1.8-7.0) 05/21/17 09:47 Lymph # 1.3 K/uL (1.0-4.3) 05/21/17 09:47 [facility] # 0.6 K/uL (0.0-0.8) 05/21/17 09:47 Eos # 0.1 K/uL (0.0-0.7) 05/21/17 09:47 Baso # 0.1 K/uL (0.0-0.2) 05/21/17 09:47 PT 12.1 Seconds (9.8-13.1) 05/22/17 06:50 INR 1.2 (0.9-1.2) 05/22/17 06:50 APTT 27.8 Seconds (25.6-37.1) 05/22/17 06:50 Sodium 141 mmol/l (132-148) 05/23/17 05:50 Potassium 5.4 MMOL/L (3.6-5.0) H 05/23/17 05:50 Chloride 101 mmol/L (98-107) 05/23/17 05:50 Carbon Dioxide 29 mmol/L (22-30) 05/23/17 05:50 Anion Gap 16 (10-20) 05/23/17 05:50 BUN 35 mg/dl (9-20) H 05/23/17 05:50 Creatinine 1.0 mg/dL (0.8-1.5) 05/23/17 05:50 Est GFR ( Amer) > 60 05/23/17 05:50 Est GFR (Non-Af Amer) > 60 05/23/17 05:50 Random Glucose 109 mg/dL (75-110) 05/23/17 05:50 Calcium 9.0 mg/dL (8.4-10.2) 05/23/17 05:50 Total Bilirubin 0.4 mg/dl (0.2-1.3) 05/21/17 09:47 AST 20 U/L (17-59) 05/21/17 09:47 ALT 26 U/L (21-72) 05/21/17 09:47 Alkaline Phosphatase 82 U/L (38-126) 05/21/17 09:47 Total Protein 7.1 G/DL (6.3-8.2) 05/21/17 09:47 Albumin 3.5 g/dL (3.5-5.0) 05/21/17 09:47 Globulin 3.6 gm/dL (2.2-3.9) 05/21/17 09:47 Albumin/Globulin Ratio 1.0 (1.0-2.1) 05/21/17 09:47 Carcinoembryonic Ag 17.7 ng/mL (0-3.0) H 05/21/17 09:47 - Hospital Course Hospital Course: 81 yo male with PMH of A-fib currently not on medication, HTN, chronic gastritis, hyperlipidemia and recently diagnosed colon CA (05/06/17) admitted to [facility] for 1st cycle of chemotherapy on 05/21/2017. Pt had no side effects from 5- FU infusions treatment. Tolerated chemotherapy well with no nausea or vomiting. Pt's BP was stable throughout the hospital stay. Pt was advised to stop taking valsartan/HCTZ 160 mg/12.5 mg and continue his rest of his home medications. Pt was advised to f/u with Dr. Antonio Bermeo (referral was given). Pt has appointment at infusion center on 05/28/17 for blood tests and will start another course of chemo in 2 weeks. Has an appointment with Dr. Kathie Loredo on 06/04/17 at 2:40 pm. Discharge Exam - Head Exam Head Exam: NORMAL INSPECTION - Eye Exam Eye Exam: Normal appearance - ENT Exam ENT Exam: Mucous Membranes Moist - Neck Exam Neck exam: Normal Inspection - Respiratory Exam Respiratory Exam: Clear to PA & Lateral, NORMAL BREATHING PATTERN. absent: Rhonchi, Wheezes - Cardiovascular Exam Cardiovascular Exam: REGULAR RHYTHM, RRR, +S1, +S2 Additional comments: port cath on right chest - GI/Abdominal Exam GI & Abdominal Exam: Normal Bowel Sounds, Soft. absent: Tenderness - Extremities Exam Extremities exam: normal capillary refill, normal inspection - Neurological Exam Neurological exam: Alert, Oriented x3 - Psychiatric Exam Psychiatric exam: Normal Affect, Normal Mood Discharge Plan - Discharge Medications Prescriptions: Metoprolol Tartrate [Lopressor] 25 mg PO Q12 #60 tab Ondansetron HCl [Zofran] 4 mg PO Q6 PRN #20 tablet PRN Reason: Nausea/Vomiting Simvastatin 20 mg PO ONCE #30 tablet - Follow Up Plan Condition: GOOD Disposition: HOME/ ROUTINE Instructions: Fluorouracil (By injection), Leucovorin (By injection), Oxaliplatin (By injection), Peripheral Intravenous Chemotherapy (DC) Additional Instructions: Appointment with Dr. Kathie Loredo at [facility] on 06/04/17 at 2:40 pm Return to infusion center may 4 for blood work and next course of chemotherapy Referrals: [facility] [Outside] You Bermeo MD [Staff Provider] - Solomon Alamo MD [Primary Care Provider] - Kathie Loredo MD [Resident] -
== END 2017-05-23 11:46 | disposition home or self-care (01) | DRG 847 ==
LOC: H.MEDSURG1 09:00
PROVIDERS: ADMIT Family Medicine Geriatric Medicine; ATTEND Family Medicine Geriatric Medicine
DX: Z51.11 Encounter for antineoplastic chemotherapy (principal); C19 Malignant neoplasm of rectosigmoid junction; E87.5 Hyperkalemia; I48.91 Unspecified atrial fibrillation; I10 Essential (primary) hypertension; K29.50 Unspecified chronic gastritis without bleeding; E78.5 Hyperlipidemia, unspecified; Z87.891 Personal history of nicotine dependence

== ENCOUNTER 2017-06-03 08:37 | Inpatient (IN) | payer MEDICARE ==
[2017-06-03] MEDS ORDERED: Oxycodone/Acetaminophen 5/325 mg Tab PO PRN (08:38)
--- NOTE | 2017-06-03 09:04 | CP.PCM.HP ---
History of Present Illness - History of Present Illness History of Present Illness: Aman Coffey is a 80 year old male with PMH of atrial fib currently not on coumadin, HTN, HLD, and recently diagnosed colon CA on 05/06/17 admitted to [facility] for chemotherapy. Pt had colonoscopy done on 05/06/17 which showed frond-like/ villous, fungating, infiltrative and ulcerated partially obstructing 10 cm mass in the recto-sigmoid colon and sigmoid colon area. There was also 20 mm polyps found in the sigmoid colon. The biopsy showed colonic adenocarcinoma. Pt reports Pt is going to receive adjuvant chemotherapy with:Oxaliplatin, Leucovorin, and Fluorouacil; Denies: SOB/CP/N/V/PARNELL PCP: Dr. Solomon Alamo Shim Plug Cutter: Dr. Laila Bermeo Hotel Housekeeper/Oncologist: Dr. Eduardo Bermeo PMH: Afib (currently not on coumadin) HTN and HLD Meds: Metoprolol 25mg BID, Simvastatin 20mg daily, Valsartan-HCTZ 160-12.5 mg daily, Famotidine Surgical Hx: Umbilical hernia repair 2006 and cataract surgery. Family Hx: father was dx with colon CA at age 81 and paternal uncle dx with lung CA at age 80. Social Hx: former smoker, quit 20 years ago, used to smoke 1 PPD x 40 years. Drinks alcohol socially. Denies drug use. Present on Admission - Present on Admission Any Indicators Present on Admission: No Past Patient History - Past Medical History & Family History Past Medical History?: Yes - Past Social History Smoking Status: Former Smoker - CARDIAC Hx Cardiac Disorders: Yes Hx Hypercholesterolemia: Yes Hx Hypertension: Yes - PULMONARY Hx Respiratory Disorders: Yes Hx Emphysema: Yes - NEUROLOGICAL Hx Neurological Disorder: No - HEENT Hx HEENT Problems: Yes Hx Cataracts: Yes (had sx) - RENAL Hx Chronic Kidney Disease: No - ENDOCRINE/METABOLIC Hx Endocrine Disorders: No - HEMATOLOGICAL/ONCOLOGICAL Hx Blood Disorders: Yes Hx Chemotherapy: Yes (started today 05/21/17) - INTEGUMENTARY Hx Dermatological Problems: No - MUSCULOSKELETAL/RHEUMATOLOGICAL Hx Musculoskeletal Disorders: No Hx Falls: No - GASTROINTESTINAL Hx Gastrointestinal Disorders: Yes Hx Pancreatitis: Yes (CHRONIC) - GENITOURINARY/GYNECOLOGICAL Hx Genitourinary Disorders: No - PSYCHIATRIC Hx Psychophysiologic Disorder: No Hx Emotional Abuse: No Hx Physical Abuse: No Hx Substance Use: No - SURGICAL HISTORY Hx Surgeries: Yes Other/Comment: hernia left inguinal,cataracts [place] - ANESTHESIA Hx Anesthesia: Yes Hx Anesthesia Reactions: No Hx Malignant Hyperthermia: No Meds Allergies/Adverse Reactions: Allergies Allergy/AdvReac Type Severity Reaction Status Date / Time No Known Allergies Allergy Verified 06/03/17 08:37 Physical Exam - Constitutional Appears: Well, No Acute Distress - Eye Exam Eye Exam: EOMI - Respiratory Exam Additional comments: expiratory stidor appreciated - Cardiovascular Exam Cardiovascular Exam: REGULAR RHYTHM, +S1, +S2 - GI/Abdominal Exam GI & Abdominal Exam: Normal Bowel Sounds, Soft - Psychiatric Exam Psychiatric exam: Normal Affect, Normal Mood Results - Labs Result Diagrams: 06/03/17 09:05 06/03/17 09:05 Assessment & Plan - Assessment and Plan (Free Text) Plan: Aman Coffey is a 80 year old male with PMH of atrial fib currently not on coumadin, HTN, HLD, and recently diagnosed colon CA on 05/06/17 admitted to [facility] for chemotherapy. 1. Colon adenocarcinoma - Hematology/oncology Dr. Eduardo Bermeo on board. - Will received chemotherapy with oxaliplatin, leucovorin and fluorouracil. 2. Hypertension -Stable -Continue HCTZ 12.5 mg PO daily -Continue valsartan 160 -Continue metoprolol tartrate 25 mg PO BID 3. Hyperlipidemia -Continue simvastatin 20 mg po daily 4. Chronic gastritis -Famotidine 5. History of atrial fibrillation -stable -not on coumadin 6. DVT prophylaxis - SCD Diet: heart healthy diet Alexandr Saeed, PGY1
[2017-06-03] MEDS: Sodium Chloride 0.9% 500 ML IV SCH ×2 (09:05→15:59)
[2017-06-03 09:09] LABS: EOS # 0.1 K/uL (0.0-0.7); EOS % 3.6 % (0.0-4.0); HEMATOCRIT 28.5 % (35.0-51.0); LYMPH # 1.3 K/uL (1.0-4.3); LYMPH % 35.8 % (20.0-40.0); MEAN CELL VOLUME 75.6 fl (80.0-94.0); MEAN CORPUSCULAR HEMOGLOBIN 23.8 pg (27.0-31.0); MEAN CORPUSCULAR HGB CONC 31.5 g/dL (33.0-37.0); MEAN PLATELET VOLUME 7.5 fl (7.2-11.7); MONO # 0.3 K/uL (0.0-0.8); MONO % 9.3 % (0.0-10.0); NEUT # 1.8 K/uL (1.8-7.0); NEUT % 50.3 % (50.0-75.0); NRBC % 0.2 % (0.0-0.0); RED CELL DISTRIBUTION WIDTH 17.6 % (11.5-14.5); WHITE BLOOD COUNT 3.5 K/uL (4.8-10.8)
[2017-06-03 09:19] LABS: ALB/GLOB RATIO 1.1 (1.0-2.1); ALKALINE PHOSPHATASE 94 U/L (38-126); ALT/SGPT 28 U/L (21-72); AST/SGOT 26 U/L (17-59); BILIRUBIN,TOTAL 0.3 mg/dl (0.2-1.3); BLOOD UREA NITROGEN 17 mg/dl (9-20); CALCIUM 9.3 mg/dL (8.4-10.2); CARBON DIOXIDE 28 mmol/L (22-30); CHLORIDE 105 mmol/L (98-107); GFR AFRICAN-AMERICAN > 60; GLUCOSE,RANDOM 98 mg/dL (75-110); POTASSIUM 4.2 MMOL/L (3.6-5.0); SODIUM 143 mmol/l (132-148); TOTAL PROTEIN 6.9 G/DL (6.3-8.2)
[2017-06-03] MEDS ORDERED: Dexamethasone 10 MG in Sodium Chloride 0.9% 50 ML IVPB ONE (09:45)
[2017-06-03] MEDS ORDERED: Lidocaine/Prilocaine CREAM 5GM TP ONE (09:45)
[2017-06-03] MEDS ORDERED: APREPITANT 125 MG CAP PO SCH (09:45)
--- NOTE | 2017-06-03 11:12 | CP.PCM.CON ---
History of Present Illness - History of Present Illness History of Present Illness: This is a 81 yrs old male who was found to have a recto-sigmoid mass about 11 cms in length. There was evidence of the tumor having infiltrated into the colonic wall. His appetite has improved but weight has not changed . He had a PET scan and was found to have positive nodes next to the colon and a few in the paraaortic area,No liver or lung metastasis.. He is here for the second dose of chemotherapy. He has a h/o hyperlipidemia, and A fib for which he was on coumadin for a while but since he was found to have rectal bleeding from the tumor, the anticoagulant was discontimued. Past Patient History - Past Medical History & Family History Past Medical History?: Yes - Past Social History Smoking Status: Former Smoker - CARDIAC Hx Cardiac Disorders: Yes Hx Hypercholesterolemia: Yes Hx Hypertension: Yes - PULMONARY Hx Respiratory Disorders: Yes Hx Emphysema: Yes - NEUROLOGICAL Hx Neurological Disorder: No - HEENT Hx HEENT Problems: Yes Hx Cataracts: Yes (had sx) - RENAL Hx Chronic Kidney Disease: No - ENDOCRINE/METABOLIC Hx Endocrine Disorders: No - HEMATOLOGICAL/ONCOLOGICAL Hx Blood Disorders: Yes Hx Chemotherapy: Yes (started today 05/21/17) - INTEGUMENTARY Hx Dermatological Problems: No - MUSCULOSKELETAL/RHEUMATOLOGICAL Hx Musculoskeletal Disorders: No Hx Falls: No - GASTROINTESTINAL Hx Gastrointestinal Disorders: Yes Hx Pancreatitis: Yes (CHRONIC) - GENITOURINARY/GYNECOLOGICAL Hx Genitourinary Disorders: No - PSYCHIATRIC Hx Psychophysiologic Disorder: No Hx Emotional Abuse: No Hx Physical Abuse: No Hx Substance Use: No - SURGICAL HISTORY Hx Surgeries: Yes Other/Comment: hernia left inguinal,cataracts [place] - ANESTHESIA Hx Anesthesia: Yes Hx Anesthesia Reactions: No Hx Malignant Hyperthermia: No Meds Allergies/Adverse Reactions: Allergies Allergy/AdvReac Type Severity Reaction Status Date / Time No Known Allergies Allergy Verified 06/03/17 08:37 - Medications Medications: Current Medications Sodium Chloride (Sodium Chloride 0.9%) 500 mls @ 100 mls/hr IV .Q5H [facility] Last Admin: 06/03/17 09:05 Dose: 100 mls/hr Oxaliplatin 144 mg/ Dextrose 278.8 mls @ 139.4 mls/hr IV ONCE ONE PRN Reason: As Directed Stop: 06/03/17 13:29 Fluorouracil 680 mg/ Sodium (Chloride) 113.6 mls @ 340.8 mls/hr IV ONCE ONE PRN Reason: As Directed Stop: 06/03/17 13:49 Leucovorin Calcium 680 mg/ (Dextrose) 284 mls @ 568 mls/hr IVPB ONCE ONE PRN Reason: As Directed Stop: 06/03/17 11:59 Fluorouracil 4,080 mg/ Sodium (Chloride) 1,081.6 mls @ 24.582 mls/hr IV ONCE ONE PRN Reason: As Directed Stop: 06/05/17 09:59 Ondansetron HCl (Zofran Inj) 4 mg IVP Q6 PRN PRN Reason: Nausea/Vomiting Oxycodone/Acetaminophen (Percocet 5/325 Mg Tab) 1 tab PO Q4 PRN PRN Reason: Pain, moderate (4-7) Stop: 06/06/17 08:39 Physical Exam - Additional Findings Additional findings: Physical Exam; Alert, well oriented in no acute distress neck supple, no adenopahty Chest; clear, no rales or rhonchi heart; RSR, no murmur Abd; Soft, no mass, no h/s megaly Results - Labs Result Diagrams: 06/03/17 09:05 06/03/17 09:05 Labs: Laboratory Results - last 24 hr 06/03/17 06/03/17 09:05 09:05 WBC 3.5 L RBC 3.76 L Hgb 9.0 L Hct 28.5 L MCV 75.6 L MCH 23.8 L MCHC 31.5 L RDW 17.6 H Plt Count 110 L D MPV 7.5 Neut % (Auto) 50.3 Lymph % (Auto) 35.8 [place] % (Auto) 9.3 Eos % (Auto) 3.6 Baso % (Auto) 1.0 Neut # 1.8 Lymph # 1.3 [place] # 0.3 Eos # 0.1 Baso # 0.0 Sodium 143 Potassium 4.2 Chloride 105 Carbon Dioxide 28 Anion Gap 14 BUN 17 Creatinine 0.8 Est GFR ( Amer) > 60 Est GFR (Non-Af Amer) > 60 Random Glucose 98 Calcium 9.3 Total Bilirubin 0.3 AST 26 ALT 28 Alkaline Phosphatase 94 Total Protein 6.9 Albumin 3.6 Globulin 3.3 Albumin/Globulin Ratio 1.1 Assessment & Plan - Assessment and Plan (Free Text) Assessment: Impreession; Colon cancer Plan: Plan; Will give oxaliplatin today, along with leucovorin and fluorouracil i. He will then start the 44 hr continuous infusion of fluorouracil after.aft
[2017-06-03] MEDS ORDERED: DEXTROSE 5% IVPB ONE ×5 (11:30→12:30)
[2017-06-03] MEDS ORDERED: WATER IV ONE (11:30)
[2017-06-03] MEDS ORDERED: OXALIPLATIN IV ONE (11:30)
[2017-06-03] MEDS ORDERED: LEUCOVORIN CALCIUM IVPB ONE ×5 (11:30→12:30)
[2017-06-03] MEDS ORDERED: DEXTROSE 5% IV ONE (11:30)
[2017-06-03] MEDS ORDERED: WATER IVPB ONE ×5 (11:30→12:30)
[2017-06-03] MEDS ORDERED: FLUOROURACIL IV ONE ×2 (13:30→14:00)
[2017-06-03] MEDS ORDERED: SODIUM CHLORIDE 0.9% IV ONE ×2 (13:30→14:00)
[2017-06-03] MEDS ORDERED: Patient's Own Med (Simvastatin [Simvastatin] 20 MG) PO SCH (19:30)
[2017-06-04 07:23] VITALS: RESP 20
[2017-06-04] MEDS ORDERED: APREPITANT 80 MG CAP PO ONE ×2 (08:05→09:00)
[2017-06-04] MEDS: Amylase/Lipase/Protease 5,000 U ECC PO SCH (08:22)
[2017-06-04] MEDS: Pantoprazole 20 mg EC Tab PO SCH (08:23)
[2017-06-04] MEDS ORDERED: AMYLASE PO SCH (09:00)
[2017-06-04] MEDS ORDERED: LIPASE PO SCH (09:00)
[2017-06-04] MEDS ORDERED: PROTEASE PO SCH (09:00)
[2017-06-04] MEDS: Sodium Chloride 0.9% 500 ML IV SCH (09:36)
--- NOTE | 2017-06-04 09:57 | CP.PCM.PN ---
Subjective - Date & Time of Evaluation Date of Evaluation: 06/04/17 Time of Evaluation: 09:50 - Subjective Subjective: Pt is doing well. He has a good appetite, and has not had any nausea and vomiting. he tolerates the chemotherapy well. I would like to get a surgicsl eval to see if he should get more chemo or if he is a candidate for surgery now. On 2nd day of fluorocil infusion. He can be discharged after he finishes the infusion tomorrow. Objective - Vital Signs/Intake and Output Vital Signs (last 24 hours): Temp Pulse Resp BP Pulse Ox 97.6 F 94 H 20 132/75 98 06/04/17 07:23 06/04/17 08:22 06/04/17 07:23 06/04/17 08:22 06/04/17 07:23 - Medications Medications: Current Medications Amylase (Pancrease 50181 U-5000 U-31791 U) 5,000 u PO DAILY [facility] Last Admin: 06/04/17 08:22 Dose: 5,000 u Home Med (Simvastatin [Simvastatin]) 20 mg PO ONCE [facility] Hydrochlorothiazide (Microzide) 12.5 mg PO DAILY [facility] Last Admin: 06/04/17 08:22 Dose: 12.5 mg Sodium Chloride (Sodium Chloride 0.9%) 500 mls @ 100 mls/hr IV .Q5H [facility] Last Admin: 06/04/17 09:36 Dose: Not Given Fluorouracil 4,080 mg/ Sodium (Chloride) 1,081.6 mls @ 24.582 mls/hr IV ONCE ONE PRN Reason: As Directed Stop: 06/05/17 09:59 Last Admin: 06/03/17 14:38 Dose: 24.582 mls/hr Metoprolol Tartrate (Lopressor) 25 mg PO Q12 [facility] Last Admin: 06/04/17 08:22 Dose: 25 mg Ondansetron HCl (Zofran Inj) 4 mg IVP Q6 PRN PRN Reason: Nausea/Vomiting Oxycodone/Acetaminophen (Percocet 5/325 Mg Tab) 1 tab PO Q4 PRN PRN Reason: Pain, moderate (4-7) Stop: 06/06/17 08:39 Pantoprazole Sodium (Protonix Ec Tab) 20 mg PO DAILY [facility] Last Admin: 10/11/17 08:23 Dose: 20 mg Valsartan (Diovan) 160 mg PO DAILY [facility] Last Admin: 06/04/17 08:22 Dose: 160 mg - Labs Labs: 06/03/17 09:05 06/03/17 09:05
--- NOTE | 2017-06-04 10:00 | CP.PCM.PN ---
Subjective - Date & Time of Evaluation Date of Evaluation: 06/04/17 Time of Evaluation: 08:45 - Subjective Subjective: Pt seen and examined at bedside resting well. Denies significant overnight events; Denies: PARNELL, blurred vision, N/V/D/C, Ambulating well. Positive affect. Objective - Vital Signs/Intake and Output Vital Signs (last 24 hours): Temp Pulse Resp BP Pulse Ox 97.6 F 94 H 20 132/75 98 06/04/17 07:23 06/04/17 08:22 06/04/17 07:23 06/04/17 08:22 06/04/17 07:23 - Medications Medications: Current Medications Amylase (Pancrease 64896 U-5000 U-81398 U) 5,000 u PO DAILY [facility] Last Admin: 06/04/17 08:22 Dose: 5,000 u Home Med (Simvastatin [Simvastatin]) 20 mg PO ONCE [facility] Hydrochlorothiazide (Microzide) 12.5 mg PO DAILY [facility] Last Admin: 06/04/17 08:22 Dose: 12.5 mg Sodium Chloride (Sodium Chloride 0.9%) 500 mls @ 100 mls/hr IV .Q5H [facility] Last Admin: 06/04/17 09:36 Dose: Not Given Fluorouracil 4,080 mg/ Sodium (Chloride) 1,081.6 mls @ 24.582 mls/hr IV ONCE ONE PRN Reason: As Directed Stop: 06/05/17 09:59 Last Admin: 06/03/17 14:38 Dose: 24.582 mls/hr Metoprolol Tartrate (Lopressor) 25 mg PO Q12 [facility] Last Admin: 06/04/17 08:22 Dose: 25 mg Ondansetron HCl (Zofran Inj) 4 mg IVP Q6 PRN PRN Reason: Nausea/Vomiting Oxycodone/Acetaminophen (Percocet 5/325 Mg Tab) 1 tab PO Q4 PRN PRN Reason: Pain, moderate (4-7) Stop: 06/06/17 08:39 Pantoprazole Sodium (Protonix Ec Tab) 20 mg PO DAILY [facility] Last Admin: 06/04/17 08:23 Dose: 20 mg Valsartan (Diovan) 160 mg PO DAILY [facility] Last Admin: 06/04/17 08:22 Dose: 160 mg - Labs Labs: 06/03/17 09:05 10/10/17 09:05 - Constitutional Appears: Well, Non-toxic - Eye Exam Eye Exam: EOMI, Normal appearance. absent: Periorbital tenderness - Neck Exam Neck Exam: Full ROM - Respiratory Exam Respiratory Exam: Clear to Ausculation Bilateral, NORMAL BREATHING PATTERN - Cardiovascular Exam Cardiovascular Exam: REGULAR RHYTHM, +S1, +S2 - GI/Abdominal Exam GI & Abdominal Exam: Soft, Normal Bowel Sounds - Neurological Exam Neurological Exam: Alert, Awake, CN II-XII Intact, Normal Gait, Oriented x3 - Psychiatric Exam Psychiatric exam: Normal Affect, Normal Mood Assessment and Plan - Assessment and Plan (Free Text) Plan: Aman Coffey is a 80 year old male with PMH of atrial fib currently not on coumadin, HTN, HLD, and recently diagnosed colon CA on 05/06/17 admitted to [facility] for chemotherapy. 1. Colon adenocarcinoma - Hematology/oncology Dr. Eduardo Bermeo on board. - Will received chemotherapy with oxaliplatin, leucovorin and fluorouracil. 2. Hypertension -Stable -Continue HCTZ 12.5 mg PO daily -Continue valsartan 160 -Continue metoprolol tartrate 25 mg PO BID 3. Hyperlipidemia -Continue simvastatin 20 mg po daily 4. Pancreatic enzymes -Continue meds 5. Chronic gastritis -Famotidine 6. Chronic anemia of unknown etiology -pending to follow up outpatient. -continue to monitor 7. History of atrial fibrillation -stable -not on coumadin 8. DVT prophylaxis - SCD -PT/OT consulted Diet: heart healthy diet Alexandr Saeed, PGY1
--- NOTE | 2017-06-04 11:26 | PQF GENQUE ---
Dr. Díaz, 2 (two) queries as follows: (1 )Is there an associated diagnosis to go along with the following clinical labs? (2) If yes: etiology/type; if known? WBC:3.5 RBC:3.76 H/H:9.0/28.5 Plt Count:110 H and P: dxs. include Colon CA: admitted for Chemotherapy This form is a permanent part of the medical record Clarification of your documentation is requested to better reflect the severity of illness and intensity of treatment of your patient. Indicators present [] Specify: [] [] Specify: [] [] Specify: [] [] Specify: [] Location in the medical record that reflects the above clinical findings: [] Treatment Provided: [] PHYSICIAN'S RESPONSE Based on your medical judgment of the clinical indicators outlined above please clarify the following: [] Practitioner response [] If unable to determine, please check the box, sign and date. Present On Admission (POA) Indicator: [] Present at the time of admission [] Not present at the time of admission [] Clinically Undetermined In responding to this query, please exercise your independent professional judgment. The fact that a question is asked does not imply that any particular answer is desired or expected. Thank you for your clarification on this documentation. If you have any questions please call. * Thank you, Radha Kent RN ext #[phone]: Hortencia Jones RN MTDD
--- NOTE | 2017-06-04 15:03 | CP.PCM.CON ---
History of Present Illness - History of Present Illness History of Present Illness: General Surgery consult for Dr. Santoyo Consulted for: colon cancer Patient is an 81M with colon cancer diagnosed approximately 1 month ago. Patient had a 40lb weight loss in one year and was referred for colonoscopy. The colonoscopy showed a 10cm mass in the rectum that was identified as adenocarcinoma on pathology. Patient is here for a 2nd round of chemotherapy which will be completed tomorrow. Primary wants patient to be evaluated for possible surgical intervention. Patient denies any constipation, diarrhea, melena, abdominal pain, nausea or vomiting. Patient reports occasional hematochezia d/t hemorrhoids. No other complaints or concerns. PMH: afib, HTN, HLD, colon cancer, pancreatitis PSH: umbilical hernia repair, cataracts All: NKDA Social: 40 year history of cigarette smoking, quite 20 years ago. ETOH socially. No drug use Review of Systems - Review of Systems All systems: reviewed and no additional remarkable complaints except (as per HPI ) - Constitutional Constitutional: Weight Loss. absent: Anorexia, Fever - Cardiovascular Cardiovascular: absent: Chest Pain, Chest Pain at Rest, Dyspnea - Respiratory Respiratory: absent: Cough, Dyspnea, Dyspnea on Exertion - Gastrointestinal Gastrointestinal: Hematochezia. absent: Abdominal Pain, Constipation, Diarrhea , Hematemesis, Nausea, Vomiting - Musculoskeletal Musculoskeletal: absent: Back Pain, Numbness, Tingling - Neurological Neurological: absent: Numbness, Tingling, Weakness Past Patient History - Past Medical History & Family History Past Medical History?: Yes - Past Social History Smoking Status: Former Smoker Alcohol: Social Drugs: Denies Home Situation {Lives}: With Family - CARDIAC Hx Cardiac Disorders: Yes Hx Hypercholesterolemia: Yes Hx Hypertension: Yes - PULMONARY Hx Respiratory Disorders: Yes Hx Emphysema: Yes - NEUROLOGICAL Hx Neurological Disorder: No - HEENT Hx HEENT Problems: Yes Hx Cataracts: Yes (had sx) - RENAL Hx Chronic Kidney Disease: No - ENDOCRINE/METABOLIC Hx Endocrine Disorders: No - HEMATOLOGICAL/ONCOLOGICAL Hx Blood Disorders: Yes Hx Chemotherapy: Yes (started today 05/21/17) - INTEGUMENTARY Hx Dermatological Problems: No - MUSCULOSKELETAL/RHEUMATOLOGICAL Hx Musculoskeletal Disorders: No Hx Falls: No - GASTROINTESTINAL Hx Gastrointestinal Disorders: Yes Hx Pancreatitis: Yes (CHRONIC) - GENITOURINARY/GYNECOLOGICAL Hx Genitourinary Disorders: No - PSYCHIATRIC Hx Psychophysiologic Disorder: No Hx Emotional Abuse: No Hx Physical Abuse: No Hx Substance Use: No - SURGICAL HISTORY Hx Surgeries: Yes Other/Comment: hernia left inguinal,cataracts [place] - ANESTHESIA Hx Anesthesia: Yes Hx Anesthesia Reactions: No Hx Malignant Hyperthermia: No Meds Allergies/Adverse Reactions: Allergies Allergy/AdvReac Type Severity Reaction Status Date / Time No Known Allergies Allergy Verified 06/03/17 08:37 - Medications Medications: Current Medications Amylase (Pancrease 88897 U-5000 [id number] U) 5,000 u PO DAILY [facility] Last Admin: 06/04/17 08:22 Dose: 5,000 u Home Med (Simvastatin [Simvastatin]) 20 mg PO ONCE [facility] Hydrochlorothiazide (Microzide) 12.5 mg PO DAILY [facility] Last Admin: 06/04/17 08:22 Dose: 12.5 mg Sodium Chloride (Sodium Chloride 0.9%) 500 mls @ 100 mls/hr IV .Q5H [facility] Last Admin: 06/04/17 09:36 Dose: Not Given Fluorouracil 4,080 mg/ Sodium (Chloride) 1,081.6 mls @ 24.582 mls/hr IV ONCE ONE PRN Reason: As Directed Stop: 06/05/17 09:59 Last Admin: 06/03/17 14:38 Dose: 24.582 mls/hr Metoprolol Tartrate (Lopressor) 25 mg PO Q12 [facility] Last Admin: 06/04/17 08:22 Dose: 25 mg Ondansetron HCl (Zofran Inj) 4 mg IVP Q6 PRN PRN Reason: Nausea/Vomiting Oxycodone/Acetaminophen (Percocet 5/325 Mg Tab) 1 tab PO Q4 PRN PRN Reason: Pain, moderate (4-7) Stop: 06/06/17 08:39 Pantoprazole Sodium (Protonix Ec Tab) 20 mg PO DAILY [facility] Last Admin: 06/04/17 08:23 Dose: 20 mg Valsartan (Diovan) 160 mg PO DAILY [facility] Last Admin: 06/04/17 08:22 Dose: 160 mg Physical Exam - Constitutional Appears: Non-toxic, No Acute Distress - Head Exam Head Exam: ATRAUMATIC, NORMOCEPHALIC - Eye Exam Eye Exam: Normal appearance. absent: Conjunctival injection, Scleral icterus - ENT Exam ENT Exam: Mucous Membranes Moist, Normal Oropharynx - Respiratory Exam Respiratory Exam: NORMAL BREATHING PATTERN. absent: Accessory Muscle Use, Respiratory Distress - Cardiovascular Exam Cardiovascular Exam: RRR - GI/Abdominal Exam GI & Abdominal Exam: Soft. absent: Distended, Mass, Tenderness - Rectal Exam Rectal Exam: NORMAL INSPECTION. absent: Black Stool, Hemorrhoids, Fecal Impaction Additional comments: prostate normal texture and size, no nodularity. No palpable rectal masses. Soft stool normal color, no earnest blood. Normal rectal tone - Extremities Exam Extremities exam: Negative for: calf tenderness, pedal edema, pedal pulses present - Neurological Exam Neurological exam: Alert, Oriented x3 - Psychiatric Exam Psychiatric exam: Normal Affect, Normal Mood - Skin Skin Exam: Dry, Normal Color, Warm Results - Vital Signs Recent Vital Signs: Last Vital Signs Temp 97.6 F 06/04/17 09:00 Pulse 94 H 06/04/17 09:00 Resp 20 06/04/17 09:00 BP 132/75 06/04/17 09:00 Pulse Ox 98 06/04/17 09:00 - Labs Result Diagrams: 06/03/17 09:05 06/03/17 09:05 Assessment & Plan - Assessment and Plan (Free Text) Assessment: 81M with colon cancer undergoing 2nd round of systemic chemotherapy Plan: -No immediate surgical intervention indicated at this time -Continue current medical management per primary and oncology -Dr. Santoyo will review patient's medical history and imaging and discuss recommendations with patient and oncology -Further recs per him Discussed with Dr. Natanael Chandra, PGY2
[2017-06-04] MEDS: Sodium Chloride 0.9% 1,000 ML IV SCH (16:30)
[2017-06-04] MEDS ORDERED: Chlorhexidine Gluconate 1 APPL/PKT TP ONE (17:59)
[2017-06-05 07:23] VITALS: BP 122/74; PULSE 86; TEMP 97.3; O2SAT 95
[2017-06-05] MEDS: Pantoprazole 20 mg EC Tab PO SCH (08:19)
[2017-06-05] MEDS: Amylase/Lipase/Protease 5,000 U ECC PO SCH (08:19)
[2017-06-05] MEDS: Sodium Chloride 0.9% 1,000 ML IV SCH (08:20)
--- NOTE | 2017-06-05 08:38 | CP.PCM.PN ---
Subjective - Date & Time of Evaluation Date of Evaluation: 06/05/17 Time of Evaluation: 08:32 - Subjective Subjective: Pt is afebrile, in no acute distress. He is almost done with his fluorouracil infusion. He may be discharged after that. He will return daily for 2 days for granix injections. Objective - Vital Signs/Intake and Output Vital Signs (last 24 hours): Temp Pulse Resp BP Pulse Ox 97.3 F L 86 20 122/74 95 06/05/17 07:23 06/05/17 07:23 06/05/17 07:23 06/05/17 07:23 06/05/17 07:23 - Medications Medications: Current Medications Amylase (Pancrease 83439 U-5000 U-[id number] U) 5,000 u PO DAILY [facility] Last Admin: 06/05/17 08:19 Dose: 5,000 u Atorvastatin Calcium (Lipitor) 10 mg PO HS [facility] Last Admin: 06/04/17 21:20 Dose: 10 mg Heparin Sodium (Porcine) (Heparin Lock Flush) 500 units IVF ONCE ONE Stop: 06/05/17 08:30 Hydrochlorothiazide (Microzide) 12.5 mg PO DAILY [facility] Last Admin: 06/05/17 08:19 Dose: 12.5 mg Fluorouracil 4,080 mg/ Sodium (Chloride) 1,081.6 mls @ 24.582 mls/hr IV ONCE ONE PRN Reason: As Directed Stop: 06/05/17 09:59 Last Admin: 06/03/17 14:38 Dose: 24.582 mls/hr Sodium Chloride (Sodium Chloride 0.9%) 1,000 mls @ 80 mls/hr IV .[id number] [facility] Stop: 06/05/17 16:22 Last Admin: 06/05/17 08:20 Dose: 80 mls/hr Metoprolol Tartrate (Lopressor) 25 mg PO Q12 [facility] Last Admin: 06/05/17 08:19 Dose: 25 mg Ondansetron HCl (Zofran Inj) 4 mg IVP Q6 PRN PRN Reason: Nausea/Vomiting Oxycodone/Acetaminophen (Percocet 5/325 Mg Tab) 1 tab PO Q4 PRN PRN Reason: Pain, moderate (4-7) Stop: 06/06/17 08:39 Pantoprazole Sodium (Protonix Ec Tab) 20 mg PO DAILY [facility] Last Admin: 06/05/17 08:19 Dose: 20 mg Valsartan (Diovan) 160 mg PO DAILY [facility] Last Admin: 06/05/17 08:18 Dose: 160 mg - Labs Labs: 06/03/17 09:05 06/03/17 09:05
[2017-06-05] MEDS ORDERED: APREPITANT 80 MG CAP PO ONE (09:00)
--- NOTE | 2017-06-05 09:44 | CP.PCM.DIS ---
Provider - Provider Date of Admission: 06/03/17 08:37 Attending physician: Dulce Maria Díaz MD Primary care physician: Solomon Alamo MD Time Spent in preparation of Discharge (in minutes): 20 Hospital Course - Lab Results Lab Results: Most Recent Lab Values WBC 3.5 K/uL (4.8-10.8) L 06/03/17 09:05 RBC 3.76 Mil/uL (4.40-5.90) L 06/03/17 09:05 Hgb 9.0 g/dL (12.0-18.0) L 06/03/17 09:05 Hct 28.5 % (35.0-51.0) L 06/03/17 09:05 MCV 75.6 fl (80.0-94.0) L 06/03/17 09:05 MCH 23.8 pg (27.0-31.0) L 06/03/17 09:05 MCHC 31.5 g/dL (33.0-37.0) L 06/03/17 09:05 RDW 17.6 % (11.5-14.5) H 06/03/17 09:05 Plt Count 110 K/uL (130-400) L D 06/03/17 09:05 MPV 7.5 fl (7.2-11.7) 06/03/17 09:05 Neut % (Auto) 50.3 % (50.0-75.0) 06/03/17 09:05 Lymph % (Auto) 35.8 % (20.0-40.0) 06/03/17 09:05 [place] % (Auto) 9.3 % (0.0-10.0) 06/03/17 09:05 Eos % (Auto) 3.6 % (0.0-4.0) 06/03/17 09:05 Baso % (Auto) 1.0 % (0.0-2.0) 06/03/17 09:05 Neut # 1.8 K/uL (1.8-7.0) 06/03/17 09:05 Lymph # 1.3 K/uL (1.0-4.3) 06/03/17 09:05 [place] # 0.3 K/uL (0.0-0.8) 06/03/17 09:05 Eos # 0.1 K/uL (0.0-0.7) 06/03/17 09:05 Baso # 0.0 K/uL (0.0-0.2) 06/03/17 09:05 Sodium 143 mmol/l (132-148) 06/03/17 09:05 Potassium 4.2 MMOL/L (3.6-5.0) 06/03/17 09:05 Chloride 105 mmol/L (98-107) 06/03/17 09:05 Carbon Dioxide 28 mmol/L (22-30) 06/03/17 09:05 Anion Gap 14 (10-20) 06/03/17 09:05 BUN 17 mg/dl (9-20) 06/03/17 09:05 Creatinine 0.8 mg/dL (0.8-1.5) 06/03/17 09:05 Est GFR ( Amer) > 60 06/03/17 09:05 Est GFR (Non-Af Amer) > 60 06/03/17 09:05 Random Glucose 98 mg/dL (75-110) 06/03/17 09:05 Calcium 9.3 mg/dL (8.4-10.2) 06/03/17 09:05 Total Bilirubin 0.3 mg/dl (0.2-1.3) 06/03/17 09:05 AST 26 U/L (17-59) 06/03/17 09:05 ALT 28 U/L (21-72) 06/03/17 09:05 Alkaline Phosphatase 94 U/L (38-126) 06/03/17 09:05 Total Protein 6.9 G/DL (6.3-8.2) 06/03/17 09:05 Albumin 3.6 g/dL (3.5-5.0) 06/03/17 09:05 Globulin 3.3 gm/dL (2.2-3.9) 06/03/17 09:05 Albumin/Globulin Ratio 1.1 (1.0-2.1) 06/03/17 09:05 - Hospital Course Hospital Course: Aman Coffey is an 81 yo male with PMH of atrial fib currently not on coumadin, HTN, HLD, and recently diagnosed colon CA on 05/06/17 admitted to [facility] for chemotherapy. Course of chemotherapeutics: oxaliplatin, leucovorin and fluorouracil. Discharge for home: follow up with heme/onc Dr. Bermeo Discontinue statin/HCTZ, Lipitor, and omeprazole Discharge Exam - Head Exam Head Exam: ATRAUMATIC, NORMOCEPHALIC Discharge Plan - Discharge Medications Prescriptions: Lipase/Protease/Amylase [Zenpep Dr 15,000 Units Capsule] 1 cap PO DAILY 1 Days capsule. Metoprolol Tartrate [Lopressor] 25 mg PO Q12 #60 tab Omeprazole 40 mg PO DAILY 1 Days capsule. Ondansetron HCl [Zofran] 4 mg PO Q6 PRN #20 tablet PRN Reason: Nausea/Vomiting - Follow Up Plan Condition: GOOD Disposition: HOME/ ROUTINE Instructions: Fluorouracil (By injection), Leucovorin (By injection), Oxaliplatin (By injection), Eating During Cancer Treatment (GEN), Preventing Infections (GEN), How to Care for Your Implanted Venous Access Port (GEN), Fatigue (GEN) Referrals: You Bermeo MD [Staff Provider] - Solomon Alamo MD [Primary Care Provider] -
--- NOTE | 2017-06-05 13:12 | CP.PCM.PN ---
Subjective - Date & Time of Evaluation Date of Evaluation: 06/05/17 Time of Evaluation: 09:00 - Subjective Subjective: Patient seen and examined this AM. NAEO. Patient denies any pain, nausea, vomiting, or any other symptoms Objective - Vital Signs/Intake and Output Vital Signs (last 24 hours): Temp Pulse Resp BP Pulse Ox 97.3 F L 86 20 122/74 95 06/05/17 07:23 06/05/17 07:23 06/05/17 07:23 06/05/17 07:23 06/05/17 07:23 - Medications Medications: Current Medications Amylase (Pancrease 93074 U-5000 U-[id number] U) 5,000 u PO DAILY [facility] Last Admin: 06/05/17 08:19 Dose: 5,000 u Sodium Chloride (Sodium Chloride 0.9%) 1,000 mls @ 80 mls/hr IV .[id number] [facility] Stop: 06/05/17 16:22 Last Admin: 06/05/17 08:20 Dose: 80 mls/hr Metoprolol Tartrate (Lopressor) 25 mg PO Q12 [facility] Last Admin: 06/05/17 08:19 Dose: 25 mg Ondansetron HCl (Zofran Inj) 4 mg IVP Q6 PRN PRN Reason: Nausea/Vomiting Oxycodone/Acetaminophen (Percocet 5/325 Mg Tab) 1 tab PO Q4 PRN PRN Reason: Pain, moderate (4-7) Stop: 06/06/17 08:39 Pantoprazole Sodium (Protonix Ec Tab) 20 mg PO DAILY [facility] Last Admin: 06/05/17 08:19 Dose: 20 mg - Labs Labs: 06/03/17 09:05 06/03/17 09:05 - Constitutional Appears: Non-toxic, No Acute Distress - Head Exam Head Exam: ATRAUMATIC, NORMOCEPHALIC - Eye Exam Eye Exam: Normal appearance. absent: Conjunctival injection, Scleral icterus - ENT Exam ENT Exam: Mucous Membranes Moist, Normal Oropharynx - Respiratory Exam Respiratory Exam: NORMAL BREATHING PATTERN. absent: Accessory Muscle Use, Respiratory Distress - Cardiovascular Exam Cardiovascular Exam: RRR - GI/Abdominal Exam GI & Abdominal Exam: Soft. absent: Distended, Tenderness - Extremities Exam Extremities Exam: absent: Calf Tenderness, Pedal Edema, Tenderness - Neurological Exam Neurological Exam: Alert, Awake, Oriented x3 - Psychiatric Exam Psychiatric exam: Normal Affect, Normal Mood - Skin Skin Exam: Dry, Intact, Normal Color, Warm Assessment and Plan - Assessment and Plan (Free Text) Assessment: 81M with sigmoid vs rectal cancer undergoing chemotherapy Plan: -Patient is asymptomatic at this time -Patient is clear for discharge from a surgical standpoint. Patient should follow up with Dr. Santoyo in his office in 1 week's time for further surgical planning. Thank you for this consult Examined and discussed with Dr. Natanael Chandra, PGY2
== END 2017-06-05 14:28 | disposition home or self-care (01) | DRG 847 ==
LOC: H.MEDSURG1 08:37
PROVIDERS: ADMIT Family Medicine Geriatric Medicine; ATTEND Family Medicine Geriatric Medicine
DX: Z51.11 Encounter for antineoplastic chemotherapy (principal); C18.9 Malignant neoplasm of colon, unspecified; I48.91 Unspecified atrial fibrillation; I10 Essential (primary) hypertension; E78.5 Hyperlipidemia, unspecified; D63.8 Anemia in other chronic diseases classified elsewhere; K29.50 Unspecified chronic gastritis without bleeding; Z87.891 Personal history of nicotine dependence

== ENCOUNTER 2017-06-16 08:29 | Inpatient (IN) | payer MEDICARE ==
[2017-06-11 10:03] VITALS: BMI 25.0
--- NOTE | 2017-06-16 09:17 | CP.PCM.HP ---
History of Present Illness - History of Present Illness History of Present Illness: CC: "I am here for cancer therapy" HPI: 81 YO male with PMH of HTN, HLD, a fib and colon cancer (diagnosed 05/06/17 ) presented to [facility] for chemotherapy. Pt states that he was dx with colon cancer about 2 months ago. He had vague abdominal discomfort, with changes in bowel movements and blood per stool. Pt was worked up by Dr. Henderson and undergone CT scans and colonoscopy and was diagnosed with colon cancer. Today, pt states that he feels fine, he has occasional abdominal discomfort but his BM is better then previously. Pt is not compliant with his BP medications, "I take it when its high." Denies chest pain, palpitations, dyspnea, abdominal pain, n/v/d/c. of note, pt was found to have 10 cm mass in the rectosigmoid area. The tumor was inoperable, s/p 2x neoadjuvant chemotherapy with oxaliplatin, leucovorin, and fluorouracil in April 2017. PMD: Dr. Jasmeet Palacios [employer] Architect: Dr. Laila Bermeo Hem/Onc: Dr. Eduardo Bermeo PMH: HTN, HLD, a fib and colon cancer Allergies: NKDA SurgH: hernia surgery SH: lives with , has 60+ pack year hx-quit 15 yrs ago, no ETOH, no illicit drug use FH: father was dx with colon ca at age 81, no other hx of cancers in family Present on Admission - Present on Admission Any Indicators Present on Admission: Yes Review of Systems - Constitutional Constitutional: Weight Loss (20 lbs in the last 3 months). absent: Chills, Fever, Weakness - Cardiovascular Cardiovascular: absent: Chest Pain, Dyspnea, Pedal Edema - Respiratory Respiratory: absent: Cough, Dyspnea - Gastrointestinal Gastrointestinal: absent: Abdominal Pain, Constipation, Diarrhea - Genitourinary Genitourinary: absent: Dysuria, Urinary Incontinence - Musculoskeletal Musculoskeletal: absent: Back Pain, Muscle Weakness - Neurological Neurological: absent: Confusion, Headaches - Psychiatric Psychiatric: absent: Anxiety, Confusion Past Patient History - Past Medical History & Family History Past Medical History?: Yes - Past Social History Smoking Status: Former Smoker (Quit 15yrs ago, 60+ pack year hx) Alcohol: None Drugs: Denies Home Situation {Lives}: With Family () - CARDIAC Hx Cardiac Disorders: Yes Hx Hypercholesterolemia: Yes Hx Hypertension: Yes - PULMONARY Hx Respiratory Disorders: Yes Hx Emphysema: Yes - NEUROLOGICAL Hx Neurological Disorder: No - HEENT Hx HEENT Problems: Yes Hx Cataracts: Yes (had sx) - RENAL Hx Chronic Kidney Disease: No - ENDOCRINE/METABOLIC Hx Endocrine Disorders: No - HEMATOLOGICAL/ONCOLOGICAL Hx Blood Disorders: Yes Hx Chemotherapy: Yes (started today 05/21/17) - INTEGUMENTARY Hx Dermatological Problems: No - MUSCULOSKELETAL/RHEUMATOLOGICAL Hx Musculoskeletal Disorders: No Hx Falls: No - GASTROINTESTINAL Hx Gastrointestinal Disorders: Yes Hx Pancreatitis: Yes (CHRONIC) - GENITOURINARY/GYNECOLOGICAL Hx Genitourinary Disorders: No - PSYCHIATRIC Hx Psychophysiologic Disorder: No Hx Emotional Abuse: No Hx Physical Abuse: No Hx Substance Use: No - SURGICAL HISTORY Hx Surgeries: Yes Other/Comment: hernia left inguinal,cataracts [place] - ANESTHESIA Hx Anesthesia: Yes Hx Anesthesia Reactions: No Hx Malignant Hyperthermia: No Meds Allergies/Adverse Reactions: Allergies Allergy/AdvReac Type Severity Reaction Status Date / Time No Known Allergies Allergy Verified 06/16/17 08:45 Physical Exam - Constitutional Appears: No Acute Distress - Head Exam Head Exam: ATRAUMATIC, NORMAL INSPECTION, NORMOCEPHALIC - Eye Exam Eye Exam: EOMI, Normal appearance - ENT Exam ENT Exam: Mucous Membranes Moist - Neck Exam Neck exam: Positive for: Full Rom - Respiratory Exam Respiratory Exam: Clear to Auscultation Bilateral, NORMAL BREATHING PATTERN. absent: Wheezes Additional comments: Has port-a-cath on R subclavian, dry, intact no erythema around site. - Cardiovascular Exam Cardiovascular Exam: Irregular Rhythm, +S1, +S2 - GI/Abdominal Exam GI & Abdominal Exam: Normal Bowel Sounds, Soft. absent: Guarding, Tenderness - Extremities Exam Extremities exam: Positive for: full ROM, normal inspection. Negative for: calf tenderness, pedal edema, tenderness - Back Exam Back exam: NORMAL INSPECTION. absent: CVA tenderness (L), CVA tenderness (R) - Neurological Exam Neurological exam: Alert, CN II-XII Intact, Oriented x3 - Psychiatric Exam Psychiatric exam: Normal Affect, Normal Mood - Skin Skin Exam: Dry, Intact, Normal Color, Warm Results - Labs Result Diagrams: 06/16/17 10:30 06/16/17 10:30 Assessment & Plan - Assessment and Plan (Free Text) Assessment: 81 YO male with PMH of HTN, HLD, a fib, colon cancer is admitted for chemotherapy. Round 3. 1. Colon adenocarcinoma -heme/onc on board -chemotherapy with oxaliplatin, fluorouracil and leukovorin. -management per heme/onc 2. HTN -will continue home medications 3. A fib -not on any anticoagulation -continue beta юлия for rate control -will continue to monitor 4. Microcytic Anemia -asymptomatic -likely from chronic bleeding, malignancy -hb/hct 8.4/26.8 -will cont to monitor 5. Pancreatic enzymes -cont lipase/protease/amylase 6. DVT prop -pt ambulating -lovenox sc
[2017-06-16] MEDS ORDERED: Dexamethasone 10 MG in Sodium Chloride 0.9% 50 ML IVPB ONE (09:44)
[2017-06-16 10:51] LABS: BASO % 1.1 % (0.0-2.0); EOS % 1.1 % (0.0-4.0); HEMATOCRIT 26.8 % (35.0-51.0); LYMPH # 1.3 K/uL (1.0-4.3); LYMPH % 41.8 % (20.0-40.0); MEAN CELL VOLUME 74.3 fl (80.0-94.0); MEAN CORPUSCULAR HEMOGLOBIN 23.3 pg (27.0-31.0); MEAN CORPUSCULAR HGB CONC 31.3 g/dL (33.0-37.0); MEAN PLATELET VOLUME 7.3 fl (7.2-11.7); MONO # 0.8 K/uL (0.0-0.8); NEUT # 0.9 K/uL (1.8-7.0); NRBC % 0.4 % (0.0-0.0); PLATELET COUNT 131 K/uL (130-400); RED CELL DISTRIBUTION WIDTH 17.7 % (11.5-14.5); WHITE BLOOD COUNT 3.1 K/uL (4.8-10.8)
[2017-06-16 11:04] LABS: ALB/GLOB RATIO 1.1 (1.0-2.1); ALKALINE PHOSPHATASE 85 U/L (38-126); ALT/SGPT 26 U/L (21-72); AST/SGOT 25 U/L (17-59); BILIRUBIN,TOTAL 0.1 mg/dl (0.2-1.3); BLOOD UREA NITROGEN 19 mg/dl (9-20); CALCIUM 9.3 mg/dL (8.4-10.2); CARBON DIOXIDE 33 mmol/L (22-30); CHLORIDE 104 mmol/L (98-107); GFR AFRICAN-AMERICAN > 60; GLUCOSE,RANDOM 109 mg/dL (75-110); POTASSIUM 3.9 MMOL/L (3.6-5.0); SODIUM 143 mmol/l (132-148); TOTAL PROTEIN 6.2 G/DL (6.3-8.2)
[2017-06-16] MEDS ORDERED: Lidocaine/Prilocaine CREAM 5GM TP ONE ×2 (11:15→13:06)
[2017-06-16] MEDS ORDERED: Acetaminophen 650mg/20.3ml solution UD PO ONE (11:15)
[2017-06-16] MEDS ORDERED: DiphenhydrAMINE 50 mg/ml Inj IVP ONE (11:15)
[2017-06-16] MEDS ORDERED: Sodium Chloride 0.9% 500 ML IV SCH (11:15)
[2017-06-16] MEDS ORDERED: LEUCOVORIN CALCIUM IVPB ONE (12:00)
[2017-06-16] MEDS ORDERED: DEXTROSE 5% IVPB ONE (12:00)
[2017-06-16] MEDS ORDERED: WATER IVPB ONE (12:00)
[2017-06-16 12:05] LABS: BASOPHIL 2 % (0-2); NEUTROPHIL 25 % (42-75); TOTAL CELLS COUNTED 100
[2017-06-16 12:07] LABS: LARGE PLATELETS PRESENT
[2017-06-16] MEDS ORDERED: DEXTROSE 5% IV ONE ×2 (12:30→14:45)
[2017-06-16] MEDS ORDERED: OXALIPLATIN IV ONE ×2 (12:30→14:45)
[2017-06-16] MEDS ORDERED: WATER IV ONE ×2 (12:30→14:45)
[2017-06-16] MEDS ORDERED: FLUOROURACIL IV ONE ×2 (13:30)
[2017-06-16] MEDS ORDERED: SODIUM CHLORIDE 0.9% IV ONE ×2 (13:30)
--- NOTE | 2017-06-16 15:59 | CP.PCM.CON ---
History of Present Illness - History of Present Illness History of Present Illness: This is a 81 yrs old male who was admitted for chemotherapy for a colo rectal cancer diagnosed 2 months ago. he did not want a colstomy bag at the time so it was decided to give him chemotherapy and then Surgery. I would like him to have a surgical consult anyway, but he wouild like to go outside of [facility] . This is pt's 3 rd chemo cycle, and he has been tolerating it well. Past Patient History - Past Medical History & Family History Past Medical History?: Yes - Past Social History Smoking Status: Former Smoker (Quit 15yrs ago, 60+ pack year hx) Alcohol: None Drugs: Denies Home Situation {Lives}: With Family () - CARDIAC Hx Cardiac Disorders: Yes Hx Hypercholesterolemia: Yes Hx Hypertension: Yes - PULMONARY Hx Respiratory Disorders: Yes Hx Emphysema: Yes - NEUROLOGICAL Hx Neurological Disorder: No - HEENT Hx HEENT Problems: Yes Hx Cataracts: Yes (had sx) - RENAL Hx Chronic Kidney Disease: No - ENDOCRINE/METABOLIC Hx Endocrine Disorders: No - HEMATOLOGICAL/ONCOLOGICAL Hx Blood Disorders: Yes Hx Chemotherapy: Yes (started today 05/21/17) - INTEGUMENTARY Hx Dermatological Problems: No - MUSCULOSKELETAL/RHEUMATOLOGICAL Hx Musculoskeletal Disorders: No Hx Falls: No - GASTROINTESTINAL Hx Gastrointestinal Disorders: Yes Hx Pancreatitis: Yes (CHRONIC) - GENITOURINARY/GYNECOLOGICAL Hx Genitourinary Disorders: No - PSYCHIATRIC Hx Psychophysiologic Disorder: No Hx Emotional Abuse: No Hx Physical Abuse: No Hx Substance Use: No - SURGICAL HISTORY Hx Surgeries: Yes Other/Comment: hernia left inguinal,cataracts [place] - ANESTHESIA Hx Anesthesia: Yes Hx Anesthesia Reactions: No Hx Malignant Hyperthermia: No Meds Allergies/Adverse Reactions: Allergies Allergy/AdvReac Type Severity Reaction Status Date / Time No Known Allergies Allergy Verified 06/16/17 08:45 - Medications Medications: Current Medications Enoxaparin Sodium (Lovenox) 40 mg SC DAILY [facility] PRN Reason: Protocol Home Med (Lipase/Protease/Amylase [Zenpep Dr 15,000 Units Capsule]) 1 cap PO BID [facility] Sodium Chloride (Sodium Chloride 0.9%) 500 mls @ 0 mls/hr IV .Q0M [facility] PRN Reason: As Directed Last Admin: 06/16/17 11:15 Dose: 80 mls/hr Fluorouracil 4,080 mg/ Sodium (Chloride) 1,081.6 mls @ 24.582 mls/hr IV ONCE ONE PRN Reason: As Directed Stop: 06/18/17 09:29 Last Admin: 06/16/17 14:57 Dose: 24.582 mls/hr Oxaliplatin 144 mg/ Dextrose 278.8 mls @ 139.4 mls/hr IV ONCE ONE Stop: 06/16/17 16:44 Metoprolol Tartrate (Lopressor) 12.5 mg PO Q12 [facility] Pantoprazole Sodium (Protonix Ec Tab) 40 mg PO DAILY [facility] Fluticasone/Salmeterol (Advair Diskus 250/50) 1 puff IH Q12 [facility] Physical Exam - Additional Findings Additional findings: P/E; Alert, well oriented in no acute distress neck' Supple, no adenopathy Chest; Clear, no rales or rhonchi Heart; RSR, no murmur Abd; Soft, no mass or h/s megaly Results - Labs Result Diagrams: 06/16/17 10:30 06/16/17 10:30 Labs: Laboratory Results - last 24 hr 06/16/17 06/16/17 10:30 10:30 WBC 3.1 L RBC 3.60 L Hgb 8.4 L Hct 26.8 L MCV 74.3 L D MCH 23.3 L MCHC 31.3 L RDW 17.7 H Plt Count 131 MPV 7.3 Neut % (Auto) 29.0 L Lymph % (Auto) 41.[address] [place] % (Auto) 27.0 H Eos % (Auto) 1.1 Baso % (Auto) 1.1 Neut # 0.9 L Lymph # 1.3 [place] # 0.8 Eos # 0.0 Baso # 0.0 Neutrophils % (Manual) 25 L Lymphocytes % (Manual) 45 Monocytes % (Manual) 28 H Basophils % (Manual) 2 Platelet Estimate Normal Large Platelets Present Hypochromasia (manual) Moderate Anisocytosis (manual) Slight Microcytosis (manual) Slight Tear Drop Cells Slight Ovalocytes Slight Sodium 143 Potassium 3.9 Chloride 104 Carbon Dioxide 33 H Anion Gap 10 BUN 19 Creatinine 0.7 L Est GFR ( Amer) > 60 Est GFR (Non-Af Amer) > 60 Random Glucose 109 Calcium 9.3 Total Bilirubin 0.1 L AST 25 ALT 26 Alkaline Phosphatase 85 Total Protein 6.2 L Albumin 3.3 L Globulin 3.0 Albumin/Globulin Ratio 1.1 Assessment & Plan - Assessment and Plan (Free Text) Assessment: IMp; Colorectal cancer, with a lond 10 cm segment extending from the rectum to the sigmoid colon. Plan: Plan; Will give chemotherapy today with oxaliplatin, leucovorin and fluorouracil bolus. Will then give fluorouracil as a continuous infusion over 44 hrs
[2017-06-16] MEDS: AMYLASE PO SCH (17:31)
[2017-06-16] MEDS: LIPASE PO SCH (17:31)
[2017-06-16] MEDS: PROTEASE PO SCH (17:31)
[2017-06-16] MEDS: Enoxaparin 40 mg Syringe SC SCH (17:38)
[2017-06-16] MEDS: Fluticasone-Salmeterol 250-50mcg Diskus IH SCH (20:31)
[2017-06-17 07:41] VITALS: RESP 20
--- NOTE | 2017-06-17 09:37 | CP.PCM.PN ---
Subjective - Date & Time of Evaluation Date of Evaluation: 06/17/17 Time of Evaluation: 09:36 - Subjective Subjective: 81 YO male admitted for round 3 of chemotherapy for colon CA S: Pt started chemotherapy with chemotherapy with oxaliplatin, fluorouracil and leukovorin. Currently on a continuous infusion of fluorouracil for 44 hrs. Pt seen and examined bedside this AM. He states that he feels better then yesterday , he was tired yesterday. Denies chest pain, dyspnea, palpitations, abdominal pain, no blood per rectum, n/v/d/c. Objective - Vital Signs/Intake and Output Vital Signs (last 24 hours): Temp Pulse Resp BP Pulse Ox 98.4 F 98 H 20 140/78 95 06/17/17 07:39 06/17/17 07:39 06/17/17 07:39 06/17/17 07:39 06/17/17 07:39 - Medications Medications: Current Medications Enoxaparin Sodium (Lovenox) 40 mg SC DAILY [facility] PRN Reason: Protocol Last Admin: 06/16/17 17:38 Dose: 40 mg Home Med (Lipase/Protease/Amylase [Zenpep Dr 15,000 Units Capsule]) 1 cap PO BID [facility] Last Admin: 06/16/17 17:31 Dose: 1 cap Sodium Chloride (Sodium Chloride 0.9%) 500 mls @ 0 mls/hr IV .Q0M [facility] PRN Reason: As Directed Last Admin: 06/16/17 11:15 Dose: 80 mls/hr Fluorouracil 4,080 mg/ Sodium (Chloride) 1,081.6 mls @ 24.582 mls/hr IV ONCE ONE PRN Reason: As Directed Stop: 06/18/17 09:29 Last Admin: 06/16/17 14:57 Dose: 24.582 mls/hr Metoprolol Tartrate (Lopressor) 12.5 mg PO Q12 [facility] Last Admin: 06/16/17 20:31 Dose: 12.5 mg Pantoprazole Sodium (Protonix Ec Tab) 40 mg PO DAILY [facility] Fluticasone/Salmeterol (Advair Diskus 250/50) 1 puff IH Q12 [facility] Last Admin: 06/16/17 20:31 Dose: 1 puff - Labs Labs: 06/16/17 10:30 06/16/17 10:30 - Constitutional Appears: Well, No Acute Distress - Head Exam Head Exam: ATRAUMATIC, NORMAL INSPECTION - Eye Exam Eye Exam: EOMI, Normal appearance - ENT Exam ENT Exam: Mucous Membranes Moist - Neck Exam Neck Exam: Full ROM - Respiratory Exam Respiratory Exam: Clear to Ausculation Bilateral, Wheezes (mild expiratory wheezing in the lower lobes), NORMAL BREATHING PATTERN. absent: Respiratory Distress - Cardiovascular Exam Cardiovascular Exam: REGULAR RHYTHM, +S1, +S2 Additional comments: R subclavin port-a-cath. Site intact, no erythema, no edema. - GI/Abdominal Exam GI & Abdominal Exam: Soft, Normal Bowel Sounds. absent: Tenderness - Extremities Exam Extremities Exam: Full ROM, Normal Capillary Refill, Normal Inspection. absent : Pedal Edema, Tenderness - Back Exam Back Exam: NORMAL INSPECTION. absent: CVA tenderness (L), CVA tenderness (R) - Neurological Exam Neurological Exam: Alert, Awake, Normal Gait, Oriented x3 - Psychiatric Exam Psychiatric exam: Normal Affect, Normal Mood - Skin Skin Exam: Dry, Intact, Normal Color, Warm Assessment and Plan - Assessment and Plan (Free Text) Assessment: 81 YO male with PMH of HTN, HLD, a fib, colon cancer is admitted for chemotherapy, round 3. 1. Colon adenocarcinoma -heme/onc on board -chemotherapy with oxaliplatin, fluorouracil and leukovorin. -continue fluorouracil as a continuous infusion over 44 hrs -management per heme/onc 2. HTN, controlled -will continue home medications 3. A fib -not on any anticoagulation -continue beta юлия for rate control -will continue to monitor 4. Microcytic Anemia -asymptomatic -likely from chronic bleeding, malignancy -hb/hct 8.4/26.8, down from 9/28.5 on 06/03/17 -started on iron and colace -will cont to monitor 5. Pancreatic enzymes -cont lipase/protease/amylase 6. DVT prop -lovenox sc -pt ambulating -scds
[2017-06-17] MEDS: Fluticasone-Salmeterol 250-50mcg Diskus IH SCH ×2 (10:59→20:22)
--- NOTE | 2017-06-17 12:38 | CP.PCM.PN ---
Subjective - Date & Time of Evaluation Date of Evaluation: 06/17/17 Time of Evaluation: 12:30 - Subjective Subjective: Pt is doing well with the RT, his mood has changed for the better after the decadron was started. He is on RT for the brain metastasis. Prognosis poor Objective - Vital Signs/Intake and Output Vital Signs (last 24 hours): Temp Pulse Resp BP Pulse Ox 98.4 F 98 H 20 140/78 95 06/17/17 07:39 06/17/17 07:39 06/17/17 07:39 06/17/17 07:39 06/17/17 07:39 - Medications Medications: Current Medications Docusate Sodium (Colace) 100 mg PO BID [facility] Enoxaparin Sodium (Lovenox) 40 mg SC DAILY [facility] PRN Reason: Protocol Last Admin: 06/16/17 17:38 Dose: 40 mg Ferrous Sulfate (Feosol) 325 mg PO TID [facility] Home Med (Lipase/Protease/Amylase [Zenpep Dr 15,000 Units Capsule]) 1 cap PO BID [facility] Last Admin: 06/16/17 17:31 Dose: 1 cap Sodium Chloride (Sodium Chloride 0.9%) 500 mls @ 0 mls/hr IV .Q0M [facility] PRN Reason: As Directed Last Admin: 06/16/17 11:15 Dose: 80 mls/hr Fluorouracil 4,080 mg/ Sodium (Chloride) 1,081.6 mls @ 24.582 mls/hr IV ONCE ONE PRN Reason: As Directed Stop: 06/18/17 09:29 Last Admin: 06/16/17 14:57 Dose: 24.582 mls/hr Metoprolol Tartrate (Lopressor) 12.5 mg PO Q12 [facility] Last Admin: 06/16/17 20:31 Dose: 12.5 mg Pantoprazole Sodium (Protonix Ec Tab) 40 mg PO DAILY [facility] Fluticasone/Salmeterol (Advair Diskus 250/50) 1 puff IH Q12 [facility] Last Admin: 06/16/17 20:31 Dose: 1 puff - Labs Labs: 06/16/17 10:30 06/16/17 10:30
[2017-06-17] MEDS: AMYLASE PO SCH ×2 (12:57→17:14)
[2017-06-17] MEDS: LIPASE PO SCH ×2 (12:57→17:14)
[2017-06-17] MEDS: PROTEASE PO SCH ×2 (12:57→17:14)
[2017-06-17] MEDS: Pantoprazole 40 mg EC Tab PO SCH (12:58)
[2017-06-17] MEDS: Enoxaparin 40 mg Syringe SC SCH (17:14)
[2017-06-17 21:11] LABS: IRON 59 ug/dL (49-181)
[2017-06-18 07:50] VITALS: BP 152/90; PULSE 100; TEMP 97.8; O2SAT 96
--- NOTE | 2017-06-18 08:32 | CP.PCM.PN ---
Subjective - Date & Time of Evaluation Date of Evaluation: 06/18/17 Time of Evaluation: 08:29 - Subjective Subjective: Pt has finished his fluorouracil infusion. . he may ischarged. He will return as out pt for Granix injection on 06/19 and 06/20 . He will return to the infusion center for blood work on Objective - Vital Signs/Intake and Output Vital Signs (last 24 hours): Temp Pulse Resp BP Pulse Ox 97.8 F 100 H 20 152/90 H 96 06/18/17 07:49 06/18/17 07:49 06/18/17 07:49 06/18/17 07:49 06/18/17 07:49 - Medications Medications: Current Medications Docusate Sodium (Colace) 100 mg PO BID [facility] Last Admin: 06/17/17 17:17 Dose: 100 mg Enoxaparin Sodium (Lovenox) 40 mg SC DAILY [facility] PRN Reason: Protocol Last Admin: 06/17/17 17:14 Dose: 40 mg Ferrous Sulfate (Feosol) 325 mg PO TID [facility] Last Admin: 06/17/17 17:17 Dose: 325 mg Home Med (Lipase/Protease/Amylase [Zenpep Dr 15,000 Units Capsule]) 1 cap PO BID [facility] Last Admin: 06/17/17 17:14 Dose: 1 cap Sodium Chloride (Sodium Chloride 0.9%) 500 mls @ 0 mls/hr IV .Q0M [facility] PRN Reason: As Directed Last Admin: 06/16/17 11:15 Dose: 80 mls/hr Fluorouracil 4,080 mg/ Sodium (Chloride) 1,081.6 mls @ 24.582 mls/hr IV ONCE ONE PRN Reason: As Directed Stop: 06/18/17 09:29 Last Admin: 06/16/17 14:57 Dose: 24.582 mls/hr Metoprolol Tartrate (Lopressor) 12.5 mg PO Q12 [facility] Last Admin: 06/17/17 20:22 Dose: 12.5 mg Pantoprazole Sodium (Protonix Ec Tab) 40 mg PO DAILY [facility] Last Admin: 06/17/17 12:58 Dose: 40 mg Fluticasone/Salmeterol (Advair Diskus 250/50) 1 puff IH Q12 [facility] Last Admin: 10/24/17 20:22 Dose: 1 puff - Labs Labs: 06/16/17 10:30 06/16/17 10:30
[2017-06-18] MEDS: Pantoprazole 40 mg EC Tab PO SCH (09:23)
[2017-06-18] MEDS: Enoxaparin 40 mg Syringe SC SCH (09:23)
--- NOTE | 2017-06-18 09:23 | CP.PCM.DIS ---
Provider - Provider Date of Admission: 06/16/17 09:22 Attending physician: Dulce Maria Díaz MD Time Spent in preparation of Discharge (in minutes): 20 Hospital Course - Lab Results Lab Results: Most Recent Lab Values WBC 3.1 K/uL (4.8-10.8) L 06/16/17 10:30 RBC 3.60 Mil/uL (4.40-5.90) L 06/16/17 10:30 Hgb 8.4 g/dL (12.0-18.0) L 06/16/17 10:30 Hct 26.8 % (35.0-51.0) L 06/16/17 10:30 MCV 74.3 fl (80.0-94.0) L D 06/16/17 10:30 MCH 23.3 pg (27.0-31.0) L 06/16/17 10:30 MCHC 31.3 g/dL (33.0-37.0) L 06/16/17 10:30 RDW 17.7 % (11.5-14.5) H 06/16/17 10:30 Plt Count 131 K/uL (130-400) 06/16/17 10:30 MPV 7.3 fl (7.2-11.7) 06/16/17 10:30 Neut % (Auto) 29.0 % (50.0-75.0) L 06/16/17 10:30 Lymph % (Auto) 41.8 % (20.0-40.0) H 06/16/17 10:30 [place] % (Auto) 27.0 % (0.0-10.0) H 06/16/17 10:30 Eos % (Auto) 1.1 % (0.0-4.0) 06/16/17 10:30 Baso % (Auto) 1.1 % (0.0-2.0) 06/16/17 10:30 Neut # 0.9 K/uL (1.8-7.0) L 06/16/17 10:30 Lymph # 1.3 K/uL (1.0-4.3) 06/16/17 10:30 [place] # 0.8 K/uL (0.0-0.8) 06/16/17 10:30 Eos # 0.0 K/uL (0.0-0.7) 06/16/17 10:30 Baso # 0.0 K/uL (0.0-0.2) 06/16/17 10:30 Neutrophils % (Manual) 25 % (42-75) L 06/16/17 10:30 Lymphocytes % (Manual) 45 % (20-50) 06/16/17 10:30 Monocytes % (Manual) 28 % (0-10) H 06/16/17 10:30 Basophils % (Manual) 2 % (0-2) 06/16/17 10:30 Platelet Estimate Normal (NORMAL) 06/16/17 10:30 Large Platelets Present 06/16/17 10:30 Hypochromasia (manual) Moderate 06/16/17 10:30 Anisocytosis (manual) Slight 06/16/17 10:30 Microcytosis (manual) Slight 06/16/17 10:30 Tear Drop Cells Slight 06/16/17 10:30 Ovalocytes Slight 06/16/17 10:30 Sodium 143 mmol/l (132-148) 06/16/17 10:30 Potassium 3.9 MMOL/L (3.6-5.0) 06/16/17 10:30 Chloride 104 mmol/L (98-107) 06/16/17 10:30 Carbon Dioxide 33 mmol/L (22-30) H 06/16/17 10:30 Anion Gap 10 (10-20) 06/16/17 10:30 BUN 19 mg/dl (9-20) 06/16/17 10:30 Creatinine 0.7 mg/dL (0.8-1.5) L 06/16/17 10:30 Est GFR ( Amer) > 60 06/16/17 10:30 Est GFR (Non-Af Amer) > 60 06/16/17 10:30 Random Glucose 109 mg/dL (75-110) 06/16/17 10:30 Calcium 9.3 mg/dL (8.4-10.2) 06/16/17 10:30 Iron 59 ug/dL (49-181) 06/17/17 20:47 TIBC 297 ug/dL (250-450) 06/17/17 20:47 % Saturation 20 % (20-55) 06/17/17 20:47 Ferritin 21.1 ng/Ml (17.9-464) 06/17/17 20:47 Total Bilirubin 0.1 mg/dl (0.2-1.3) L 06/16/17 10:30 AST 25 U/L (17-59) 06/16/17 10:30 ALT 26 U/L (21-72) 06/16/17 10:30 Alkaline Phosphatase 85 U/L (38-126) 06/16/17 10:30 Total Protein 6.2 G/DL (6.3-8.2) L 06/16/17 10:30 Albumin 3.3 g/dL (3.5-5.0) L 06/16/17 10:30 Globulin 3.0 gm/dL (2.2-3.9) 06/16/17 10:30 Albumin/Globulin Ratio 1.1 (1.0-2.1) 06/16/17 10:30 - Hospital Course Hospital Course: 81 YO Male with PMH HTN, HLD, a fib, colon adenocarinoma was admitted to [facility] for round 3 of chemotherapy. During this admission, pt was given oxaliplatin, fluorouracil and leukovorin. Given continuous infusion of fluorouracil for 44 hrs. Pt has follow up with Dr. Bermeo on 06/19 and 06/20 for Granix injection and will return to the infusion center for blood work on Saturday 06/23 for chronic anemia. Pt undecided about surgery but considering going to a surgeon in [place]. Discharge Exam - Head Exam Head Exam: ATRAUMATIC, NORMAL INSPECTION - Eye Exam Eye Exam: EOMI, Normal appearance - ENT Exam ENT Exam: Mucous Membranes Moist - Respiratory Exam Respiratory Exam: Clear to PA & Lateral, NORMAL BREATHING PATTERN - Cardiovascular Exam Cardiovascular Exam: REGULAR RHYTHM, +S1, +S2 - GI/Abdominal Exam GI & Abdominal Exam: Normal Bowel Sounds. absent: Mass - Extremities Exam Extremities exam: full ROM, normal inspection - Back Exam Back exam: NORMAL INSPECTION. absent: CVA tenderness (L), CVA tenderness (R) - Neurological Exam Neurological exam: Alert, CN II-XII Intact, Oriented x3 - Psychiatric Exam Psychiatric exam: Normal Affect, Normal Mood - Skin Skin Exam: Dry, Intact, Normal Color, Warm Discharge Plan - Discharge Medications Prescriptions: Docusate Sodium [Colace] 100 mg PO TID #90 capsule Ferrous Sulfate [Ferosul] 325 mg PO TID #90 tablet - Follow Up Plan Condition: GOOD Disposition: HOME/ ROUTINE Patient education suggested?: Yes Instructions: Intravenous Chemotherapy (DC) Additional Instructions: Please follow up on 06/19 and 06/20 for Granix injection PLease return to infusion center for blood work on Saturday 06/23 Referrals: You Bermeo MD [Staff Provider] -
[2017-06-18] MEDS: Fluticasone-Salmeterol 250-50mcg Diskus IH SCH (09:24)
== END 2017-06-18 12:02 | disposition home or self-care (01) | DRG 847 ==
LOC: H.MEDSURG1 09:22
PROVIDERS: ADMIT Family Medicine Geriatric Medicine; ATTEND Family Medicine Geriatric Medicine
DX: Z51.11 Encounter for antineoplastic chemotherapy (principal); C19 Malignant neoplasm of rectosigmoid junction; C79.31 Secondary malignant neoplasm of brain; I48.91 Unspecified atrial fibrillation; D50.0 Iron deficiency anemia secondary to blood loss (chronic); D63.0 Anemia in neoplastic disease; I10 Essential (primary) hypertension; E78.5 Hyperlipidemia, unspecified; Z91.14 Patient's other noncompliance with medication regimen; Z87.891 Personal history of nicotine dependence

== ENCOUNTER 2017-07-14 11:57 | Inpatient (IN) | payer MEDICARE ==
[2017-07-21] MEDS ORDERED: Lidocaine/Prilocaine CREAM 5GM TP ONE (11:17)
[2017-07-21] MEDS: Sodium Chloride 0.9% 500 ML IV SCH ×2 (11:25→22:00)
[2017-07-21 11:42] LABS: BASO # 0.1 K/uL (0.0-0.2); BASO % 1.1 % (0.0-2.0); EOS # 0.2 K/uL (0.0-0.7); EOS % 1.7 % (0.0-4.0); HEMATOCRIT 34.2 % (35.0-51.0); LYMPH # 1.7 K/uL (1.0-4.3); LYMPH % 17.7 % (20.0-40.0); MEAN CELL VOLUME 81.9 fl (80.0-94.0); MEAN CORPUSCULAR HEMOGLOBIN 25.2 pg (27.0-31.0); MEAN CORPUSCULAR HGB CONC 30.8 g/dL (33.0-37.0); MEAN PLATELET VOLUME 7.9 fl (7.2-11.7); MONO # 1.4 K/uL (0.0-0.8); MONO % 15.2 % (0.0-10.0); NEUT # 6.1 K/uL (1.8-7.0); NEUT % 64.3 % (50.0-75.0); NRBC % 0.1 % (0.0-0.0); RED CELL DISTRIBUTION WIDTH 24.5 % (11.5-14.5); WHITE BLOOD COUNT 9.4 K/uL (4.8-10.8)
[2017-07-21 11:57] LABS: ALB/GLOB RATIO 0.8 (1.0-2.1); ALKALINE PHOSPHATASE 114 U/L (38-126); ALT/SGPT 34 U/L (21-72); AST/SGOT 33 U/L (17-59); BILIRUBIN,TOTAL 0.3 mg/dl (0.2-1.3); BLOOD UREA NITROGEN 17 mg/dl (9-20); CALCIUM 8.8 mg/dL (8.4-10.2); CARBON DIOXIDE 35 mmol/L (22-30); CHLORIDE 102 mmol/L (98-107); GFR AFRICAN-AMERICAN > 60; GLUCOSE,RANDOM 116 mg/dL (75-110); POTASSIUM 4.1 MMOL/L (3.6-5.0); SODIUM 141 mmol/l (132-148); TOTAL PROTEIN 6.3 G/DL (6.3-8.2)
[2017-07-21] MEDS ORDERED: WATER IVPB SCH (12:15)
[2017-07-21] MEDS ORDERED: DEXTROSE 5% IVPB SCH (12:15)
[2017-07-21] MEDS ORDERED: Dexamethasone 10 MG in Sodium Chloride 0.9% 50 ML IVPB SCH (12:15)
[2017-07-21] MEDS ORDERED: LEUCOVORIN CALCIUM IVPB SCH (12:15)
[2017-07-21] MEDS ORDERED: DiphenhydrAMINE 50 mg/ml Inj IVP SCH (12:15)
[2017-07-21] MEDS: APREPITANT 125 MG CAP PO ONE ×2 (12:22→12:29)
[2017-07-21] MEDS ORDERED: FLUOROURACIL IV SCH ×2 (12:30)
[2017-07-21] MEDS ORDERED: SODIUM CHLORIDE 0.9% IV SCH ×2 (12:30)
[2017-07-21] MEDS ORDERED: WATER IV SCH ×2 (12:30→14:00)
[2017-07-21] MEDS ORDERED: OXALIPLATIN IV SCH ×2 (12:30→14:00)
[2017-07-21] MEDS ORDERED: DEXTROSE 5% IV SCH ×2 (12:30→14:00)
--- NOTE | 2017-07-21 14:06 | CP.PCM.HP ---
History of Present Illness - History of Present Illness History of Present Illness: Family Medicine - Dr. Díaz 81 y.o old male with PMHx of atrial fib, HTN, HLD, and colon cancer (diagnosed on 05/06/17), gout admitted to [facility] for chemotherapy. He is laying comfortably in chair, in NAD, and AAOx3. Patient goes to the [facility] infusion center for chemotherapy for 3 days. Patient reports that he is feeling well today. He reports being given medicine that is making him sleepy. Colonoscopy on 05/06/17 showed frond-like/villous, fungating, infiltrative and ulcerated partially obstructing 10 cm mass in the recto-sigmoid colon and sigmoid colon area. There was also 20 mm polyps found in the sigmoid colon. The biopsy showed colonic adenocarcinoma. Patient ambulates with a cane. ROS: denies nausea, fever, shortness of breath, chest pain, palpitations, dyspnea, abdominal pain, urinary symptoms, or problems with bowel movements, including diarrhea or constipation. PCP: Dr. Solomon Alamo Lab Manager: Dr. Laila Bermeo Legal Executive Assistant/Oncologist: Dr. Eduardo Bermeo GI: Dr Ashley Henderson. PMH: Afib, HTN, HLD, colon cancer PSH: Umbilical hernia repair 2006 and cataract surgery. MEDS: Valsartan/ HCTZ 160-12.5mg PO 1 tab daily. Omeprazole 40mg PO 1 tab daily. Ferrous sulfate PO. [place] 100 mg Simvastatin 20mg @night daily Metoprolol Tartrate 25mg BID Pancrelipase 77784 units. 3x day with meals Celecoxib 200mg PO BID PRN Advair 250/50 BID PRN ALL: NKDA FH: father- colon CA; paternal uncle- lung CAFH: father- colon CA; paternal uncle- lung CAFH: father- colon CA; paternal uncle- lung CA SH: former smoker, quit 20 years ago (1 PPD x 40 years) Drinks alcohol socially. Denies ilicit drug use. Present on Admission - Present on Admission Any Indicators Present on Admission: No History of DVT/PE: No History of Uncontrolled Diabetes: No Urinary Catheter: No Decubitus Ulcer Present: No Review of Systems - Review of Systems Review of Systems: negative as per HPI Past Patient History - Past Medical History & Family History Past Medical History?: Yes - Past Social History Smoking Status: Former Smoker - CARDIAC Hx Cardiac Disorders: Yes Hx Hypercholesterolemia: Yes Hx Hypertension: Yes - PULMONARY Hx Respiratory Disorders: Yes Hx Emphysema: Yes - NEUROLOGICAL Hx Neurological Disorder: No Hx Alzheimer's Disease: No HX Cerebrovascular Accident: No Hx Dementia: No Hx Dizziness: No Hx Meningitis: No Hx Migraine: No Hx Multiple Sclerosis: No Hx Paralysis: No Hx Parkinson's Disease: No Hx Seizures: No Hx Syncope: No Hx Transient Ischemic Attacks (TIA): No Hx Vertigo: No - HEENT Hx HEENT Problems: Yes Hx Blind: No Hx Cataracts: Yes (had sx) Hx Deafness: No Hx Difficulty Chewing: No Hx Epistaxis: No Hx Glaucoma: No Hx Macular Degeneration: No - RENAL Hx Chronic Kidney Disease: No Hx Dialysis: No Hx Kidney Stones: No Hx Neurogenic Bladder: No Hx Pyelonephritis: No Hx Renal (Kidney) Cancer: No Hx Renal Failure: No - ENDOCRINE/METABOLIC Hx Endocrine Disorders: No Hx Adrenal Cancer: No Hx Diabetes Insipidus: No Hx Diabetes Mellitus Type 1: No Hx Diabetes Mellitus Type 2: No Hx Hyperthyroidism: No Hx Hypothyroidism: No Hx Systemic Lupus Erythematosus: No - HEMATOLOGICAL/ONCOLOGICAL Hx Blood Disorders: Yes Hx Chemotherapy: Yes (started on 05/21/17) - INTEGUMENTARY Hx Dermatological Problems: No - MUSCULOSKELETAL/RHEUMATOLOGICAL Hx Musculoskeletal Disorders: No Hx Arthritis: No Hx Back Pain: No Hx Degenerative Joint Disease: No Hx Falls: No Hx Fractures: No Hx Gout: Yes Hx Herniated Disk: No Hx Myasthenia Gravis: No Hx Osteoarthritis: No Hx Osteomyelitis: No Hx Osteoporosis: No Hx Rhabdomyolysis: No Hx Rheumatoid Arthritis: No Hx Spinal Stenosis: No Hx Unsteady Gait: No - GASTROINTESTINAL Hx Gastrointestinal Disorders: Yes Hx Pancreatitis: Yes (CHRONIC) - GENITOURINARY/GYNECOLOGICAL Hx Genitourinary Disorders: No - PSYCHIATRIC Hx Psychophysiologic Disorder: No Hx Emotional Abuse: No Hx Physical Abuse: No Hx Substance Use: No - SURGICAL HISTORY Hx Surgeries: Yes Other/Comment: hernia left inguinal,cataracts [place] - ANESTHESIA Hx Anesthesia: Yes Hx Anesthesia Reactions: No Hx Malignant Hyperthermia: No Meds Allergies/Adverse Reactions: Allergies Allergy/AdvReac Type Severity Reaction Status Date / Time No Known Allergies Allergy Verified 07/21/17 10:15 Physical Exam - Constitutional Appears: Well, Non-toxic, No Acute Distress - Head Exam Head Exam: NORMAL INSPECTION - Eye Exam Eye Exam: Normal appearance - ENT Exam ENT Exam: Mucous Membranes Moist - Neck Exam Neck exam: Positive for: Normal Inspection - Respiratory Exam Respiratory Exam: Clear to Auscultation Bilateral, NORMAL BREATHING PATTERN - Cardiovascular Exam Cardiovascular Exam: REGULAR RHYTHM, RRR, +S1, +S2. absent: Systolic Murmur - GI/Abdominal Exam GI & Abdominal Exam: Soft. absent: Tenderness - Extremities Exam Extremities exam: Positive for: normal capillary refill, normal inspection. Negative for: calf tenderness Additional comments: +2 pitting edema noted to the lower extremity bilaterally below the level of the knees no calf tenderness bilaterally - Neurological Exam Neurological exam: Alert, Oriented x3 - Psychiatric Exam Psychiatric exam: Normal Affect, Normal Mood - Skin Additional comments: Port-a-cath on R subclavian, clean, dry, intact with no strikethrough. No erythema surrounding site. Results - Labs Result Diagrams: 07/21/17 11:30 07/21/17 11:30 Labs: Laboratory Results - last 24 hr 07/21/17 07/21/17 11:30 11:30 WBC 9.4 RBC 4.18 L Hgb 10.6 L Hct 34.2 L MCV 81.9 D MCH 25.2 L MCHC 30.8 L RDW 24.5 H Plt Count 169 MPV 7.9 Neut % (Auto) 64.3 Lymph % (Auto) 17.[address] [place] % (Auto) 15.2 H Eos % (Auto) 1.7 Baso % (Auto) 1.1 Neut # 6.1 Lymph # 1.7 [place] # 1.4 H Eos # 0.2 Baso # 0.1 Sodium 141 Potassium 4.1 Chloride 102 Carbon Dioxide 35 H Anion Gap 8 L BUN 17 Creatinine 0.7 L Est GFR ( Amer) > 60 Est GFR (Non-Af Amer) > 60 Random Glucose 116 H Calcium 8.8 Total Bilirubin 0.3 AST 33 ALT 34 Alkaline Phosphatase 114 Total Protein 6.3 Albumin 2.8 L Globulin 3.6 Albumin/Globulin Ratio 0.8 L Assessment & Plan - Assessment and Plan (Free Text) Assessment: 81 year old male with PMHx of HTN, HLD, a fib, colon cancer is admitted for chemotherapy. Cycle # 5. Plan: Colon adenocarcinoma -Dr Erna Bermeo heme/onc consulted -Will receive chemotherapy with oxaliplitin, fluorouracil and leucovorin. -Zofran PRN -management per heme/onc Hypertension -well controlled -will hold home meds -Valsartan/HCTZ 160mg/12.5 PO 1 tab daily, Metoprolol Tartrate 25mg PO BID Hyperlipidemia -will continue home meds -Simvastatin 20mg PO daily History of Atrial fibrilation -Stable -[id number]-atuc score 3 -Continue metoprolol tartrate 25 mg PO BID -will continue to monitor Chronic anemia -Hb/Hct (10.6/34.2) on 07/21/17 -asymptomatic -c/w home meds: ferrous sulfate PO -continue to monitor DVT prophylaxis -Lovenox 40mg SQ daily Code status -Full code Diet -Heart healthy
[2017-07-21] MEDS ORDERED: Fluticasone-Salmeterol 250-50mcg Diskus IH PRN (15:03)
[2017-07-21 15:11] VITALS: BMI 25.5
--- NOTE | 2017-07-21 16:45 | CP.PCM.CON ---
History of Present Illness - History of Present Illness History of Present Illness: Miguelito is a 81 yrs old male admitted for chemotharapy for colon cancer. He also has gout and last week was unable yo come for the chemo because he had sevre acute gout attack. he was given celebrex and is feeling much better. He will have his chemotherapy for 3 days followed by colonoscopy and then surgery. Past Patient History - Past Medical History & Family History Past Medical History?: Yes - Past Social History Smoking Status: Former Smoker - CARDIAC Hx Cardiac Disorders: Yes Hx Hypercholesterolemia: Yes Hx Hypertension: Yes - PULMONARY Hx Respiratory Disorders: Yes Hx Emphysema: Yes - NEUROLOGICAL Hx Neurological Disorder: No Hx Alzheimer's Disease: No HX Cerebrovascular Accident: No Hx Dementia: No Hx Dizziness: No Hx Meningitis: No Hx Migraine: No Hx Multiple Sclerosis: No Hx Paralysis: No Hx Parkinson's Disease: No Hx Seizures: No Hx Syncope: No Hx Transient Ischemic Attacks (TIA): No Hx Vertigo: No - HEENT Hx HEENT Problems: Yes Hx Blind: No Hx Cataracts: Yes (had sx) Hx Deafness: No Hx Difficulty Chewing: No Hx Epistaxis: No Hx Glaucoma: No Hx Macular Degeneration: No - RENAL Hx Chronic Kidney Disease: No Hx Dialysis: No Hx Kidney Stones: No Hx Neurogenic Bladder: No Hx Pyelonephritis: No Hx Renal (Kidney) Cancer: No Hx Renal Failure: No - ENDOCRINE/METABOLIC Hx Endocrine Disorders: No Hx Adrenal Cancer: No Hx Diabetes Insipidus: No Hx Diabetes Mellitus Type 1: No Hx Diabetes Mellitus Type 2: No Hx Hyperthyroidism: No Hx Hypothyroidism: No Hx Systemic Lupus Erythematosus: No - HEMATOLOGICAL/ONCOLOGICAL Hx Blood Disorders: Yes Hx Chemotherapy: Yes (started on 05/21/17) - INTEGUMENTARY Hx Dermatological Problems: No - MUSCULOSKELETAL/RHEUMATOLOGICAL Hx Musculoskeletal Disorders: No Hx Arthritis: No Hx Back Pain: No Hx Degenerative Joint Disease: No Hx Falls: No Hx Fractures: No Hx Gout: Yes Hx Herniated Disk: No Hx Myasthenia Gravis: No Hx Osteoarthritis: No Hx Osteomyelitis: No Hx Osteoporosis: No Hx Rhabdomyolysis: No Hx Rheumatoid Arthritis: No Hx Spinal Stenosis: No Hx Unsteady Gait: No - GASTROINTESTINAL Hx Gastrointestinal Disorders: Yes Hx Pancreatitis: Yes (CHRONIC) - GENITOURINARY/GYNECOLOGICAL Hx Genitourinary Disorders: No - PSYCHIATRIC Hx Psychophysiologic Disorder: No Hx Emotional Abuse: No Hx Physical Abuse: No Hx Substance Use: No - SURGICAL HISTORY Hx Surgeries: Yes Other/Comment: hernia left inguinal,cataracts [place] - ANESTHESIA Hx Anesthesia: Yes Hx Anesthesia Reactions: No Hx Malignant Hyperthermia: No Meds Allergies/Adverse Reactions: Allergies Allergy/AdvReac Type Severity Reaction Status Date / Time No Known Allergies Allergy Verified 07/21/17 10:15 - Medications Medications: Current Medications Amylase (Pancrease 19461 [id number] U) 30,000 u PO TID [facility] Celecoxib (Celebrex) 200 mg PO BID PRN PRN Reason: Pain, Mild (1-3) Diphenhydramine HCl (Benadryl) 12.5 mg IVP STAT [facility] Stop: 07/21/17 17:00 Last Admin: 07/21/17 12:28 Dose: 12.5 mg Docusate Sodium (Colace) 100 mg PO TID [facility] Enoxaparin Sodium (Lovenox) 40 mg SC DAILY [facility] PRN Reason: Protocol Famotidine (Pepcid) 20 mg IVP STAT [facility] Stop: 07/21/17 17:00 Last Admin: 07/21/17 12:28 Dose: 20 mg Ferrous Sulfate (Feosol) 325 mg PO TID [facility] Home Med (Lipase/Protease/Amylase [Zenpep Dr 15,000 Units Capsule]) 2 cap PO TID [facility] Home Med (Omeprazole [Omeprazole]) 40 mg PO DAILY [facility] Home Med (Simvastatin [Zocor]) 20 mg PO HS [facility] Home Med (Home Med) 1 unit PO DAILY [facility] Dexamethasone 10 mg/ Sodium (Chloride) 51 mls @ 102 mls/hr IVPB ONCE [facility] Stop: 07/21/17 17:00 Last Admin: 07/21/17 12:27 Dose: 102 mls/hr Sodium Chloride (Sodium Chloride 0.9%) 500 mls @ 100 mls/hr IV .Q5H [facility] Last Admin: 07/21/17 11:25 Dose: 100 mls/hr Ondansetron HCl 16 mg/ Sodium (Chloride) 58 mls @ 116 mls/hr IVPB ONCE [facility] Stop: 07/21/17 17:00 Last Admin: 07/21/17 12:25 Dose: 116 mls/hr Fluorouracil 680 mg/ Sodium (Chloride) 113.6 mls @ 454.4 mls/hr IV ONCE [facility] PRN Reason: As Directed Stop: 07/21/17 17:00 Last Admin: 07/21/17 16:23 Dose: 454.4 mls/hr Leucovorin Calcium 680 mg/ (Dextrose) 284 mls @ 142 mls/hr IVPB ONCE [facility] PRN Reason: As Directed Stop: 07/21/17 17:00 Last Admin: 07/21/17 13:44 Dose: 142 mls/hr Fluorouracil 4,080 mg/ Sodium (Chloride) 1,081.6 mls @ 24.582 mls/hr IV ONCE [facility] PRN Reason: As Directed Stop: 07/21/17 18:00 Last Admin: 07/21/17 16:23 Dose: 24.582 mls/hr Oxaliplatin 144 mg/ Dextrose 278.8 mls @ 139.4 mls/hr IV ONCE [facility] PRN Reason: As Directed Stop: 07/21/17 18:00 Last Admin: 07/21/17 13:45 Dose: 139.4 mls/hr Metoprolol Tartrate (Lopressor) 12.5 mg PO Q12 [facility] Fluticasone/Salmeterol (Advair Diskus 250/50) 1 puff IH BID PRN PRN Reason: Other Physical Exam - Additional Findings Additional findings: P/E alert, well oriented in no acute distress neck; supple, no adenopathy\ Chest; clear, no rales or rhonchi Heart; RSR, no mumur Abd; soft, no mass, no h/s megaly Results - Vital Signs Recent Vital Signs: Last Vital Signs Temp 97.2 F L 07/21/17 16:34 Pulse 101 H 07/21/17 16:34 Resp 20 07/21/17 16:34 BP 138/80 07/21/17 16:34 Pulse Ox 95 07/21/17 16:34 - Labs Result Diagrams: 07/21/17 11:30 07/21/17 11:30 Labs: Laboratory Results - last 24 hr 07/21/17 07/21/17 11:30 11:30 WBC 9.4 RBC 4.18 L Hgb 10.6 L Hct 34.2 L MCV 81.9 D MCH 25.2 L MCHC 30.8 L RDW 24.5 H Plt Count 169 MPV 7.9 Neut % (Auto) 64.3 Lymph % (Auto) 17.7 L [place] % (Auto) 15.2 H Eos % (Auto) 1.7 Baso % (Auto) 1.1 Neut # 6.1 Lymph # 1.7 [place] # 1.4 H Eos # 0.2 Baso # 0.1 Sodium 141 Potassium 4.1 Chloride 102 Carbon Dioxide 35 H Anion Gap 8 L BUN 17 Creatinine 0.7 L Est GFR ( Amer) > 60 Est GFR (Non-Af Amer) > 60 Random Glucose 116 H Calcium 8.8 Total Bilirubin 0.3 AST 33 ALT 34 Alkaline Phosphatase 114 Total Protein 6.3 Albumin 2.8 L Globulin 3.6 Albumin/Globulin Ratio 0.8 L Assessment & Plan - Assessment and Plan (Free Text) Assessment: impression; Colon cancer Plan: Plan; will give oxaliplatin,fluorouracil bolus and leucovorin today, then fluorouracil as continuous infusion over 44 hrs.
[2017-07-21] MEDS ORDERED: AMYLASE PO SCH (17:00)
[2017-07-21] MEDS ORDERED: Amylase/Lipase/Protease 5,000 U ECC PO SCH (17:00)
[2017-07-21] MEDS ORDERED: PROTEASE PO SCH (17:00)
[2017-07-21] MEDS ORDERED: LIPASE PO SCH (17:00)
[2017-07-21] MEDS ORDERED: Patient's Own Med (Simvastatin [Zocor] 20 MG) PO SCH (22:00)
[2017-07-22] MEDS: Sodium Chloride 0.9% 500 ML IV SCH (02:30)
[2017-07-22 08:04] VITALS: RESP 20
[2017-07-22] MEDS: Enoxaparin 40 mg Syringe SC SCH (08:20)
[2017-07-22] MEDS ORDERED: Home Med 1 UNIT PO SCH (09:00)
[2017-07-22] MEDS ORDERED: Patient's Own Med (Omeprazole [Omeprazole] 40 MG) PO SCH (09:00)
--- NOTE | 2017-07-22 09:42 | CP.PCM.PN ---
Subjective - Date & Time of Evaluation Date of Evaluation: 07/22/17 Time of Evaluation: 08:00 - Subjective Subjective: Family Medicine Progress Note- Dr. Díaz 81 year old male with PMH of atrial fib, HTN, HLD, gout, and colon cancer ( diagnosed on 05/06/17) seen at bedside for cycle #5 of chemotherapy for colon CA. Patient is seen laying in bed comfortably, in NAD, and AA0x3. Patient reports that he is doing well. He denies any acute overnight events. He denies nausea, fever, chills, shortness of breath, chest pains, or chests. Denies problems with urinary or problems with BM. He states he is able to go to the bathroom by himself without assistance. Currently patient is on continuous fluorouracil infusion. Denies calf tenderness bilaterally Objective - Vital Signs/Intake and Output Vital Signs (last 24 hours): Temp Pulse Resp BP Pulse Ox 97.7 F 105 H 20 129/87 93 L 07/22/17 08:03 07/22/17 08:03 07/22/17 08:03 07/22/17 08:03 07/22/17 08:03 - Medications Medications: Current Medications Celecoxib (Celebrex) 200 mg PO BID PRN PRN Reason: Pain, Mild (1-3) Docusate Sodium (Colace) 100 mg PO TID [facility] Last Admin: 07/22/17 08:19 Dose: 100 mg Enoxaparin Sodium (Lovenox) 40 mg SC DAILY [facility] PRN Reason: Protocol Last Admin: 07/22/17 08:20 Dose: 40 mg Ferrous Sulfate (Feosol) 325 mg PO TID [facility] Last Admin: 07/21/17 16:54 Dose: 325 mg Sodium Chloride (Sodium Chloride 0.9%) 500 mls @ 100 mls/hr IV .Q5H [facility] Last Admin: 07/22/17 02:30 Dose: Not Given Fluticasone/Salmeterol (Advair Diskus 250/50) 1 puff IH BID PRN PRN Reason: Other - Labs Labs: 07/21/17 11:30 07/21/17 11:30 - Constitutional Appears: Well, Non-toxic, No Acute Distress - Head Exam Head Exam: NORMAL INSPECTION - Neck Exam Neck Exam: Full ROM - Respiratory Exam Respiratory Exam: NORMAL BREATHING PATTERN. absent: Decreased Breath Sounds, Rales, Rhonchi, Wheezes, Respiratory Distress, Stridor - Cardiovascular Exam Cardiovascular Exam: REGULAR RHYTHM, RRR, +S1, +S2 - GI/Abdominal Exam GI & Abdominal Exam: Soft, Normal Bowel Sounds - Extremities Exam Extremities Exam: Normal Capillary Refill, Normal Inspection Additional comments: +2 pitting edema noted to the lower extremity bilaterally below the level of the knees no calf tenderness bilaterally No calf tenderness with palpation - Neurological Exam Neurological Exam: Alert, Awake, Oriented x3 - Skin Additional comments: Port-a-cath on R subclavian, clean, dry, intact with no strikethrough. No erythema surrounding site. Assessment and Plan - Assessment and Plan (Free Text) Assessment: 81 year old male with PMHx of HTN, HLD, a fib, colon cancer is admitted for chemotherapy. Cycle # 5. Plan: Colon adenocarcinoma -Dr Erna Bermeo heme/onc consulted -management per heme/onc: -received chemotherapy with oxaliplitin, fluorouracil and leucovorin -continue fluorouracil infusion for 44 hours -Zofran PRN Hypertension -well controlled -c/w Metroprolol Tartrate 25mg PO BID Hyperlipidemia -held home meds History of Atrial fibrilation -Stable -[id number] score 3 -c/w metoprolol tartrate 25 mg PO BID -will continue to monitor Chronic anemia -Hb/Hct (10.6/34.2) on 07/21/17 -asymptomatic -c/w home meds: ferrous sulfate PO -continue to monitor History of Gout -c/w Allopurinol 100mg PO daily per [facility] DVT prophylaxis -Lovenox 40mg SQ daily Code status -Full code Diet -Heart healthy
--- NOTE | 2017-07-22 12:27 | CP.PCM.PN ---
Subjective - Date & Time of Evaluation Date of Evaluation: 07/22/17 Time of Evaluation: 12:24 - Subjective Subjective: Pt is on the second day of fluorouracil infusion . No side effects from the chemo given yesterday Objective - Vital Signs/Intake and Output Vital Signs (last 24 hours): Temp Pulse Resp BP Pulse Ox 97.7 F 105 H 20 129/87 93 L 07/22/17 08:03 07/22/17 08:03 07/22/17 08:03 07/22/17 08:03 07/22/17 08:03 - Medications Medications: Current Medications Allopurinol (Zyloprim) 100 mg PO DAILY [facility] Celecoxib (Celebrex) 200 mg PO BID PRN PRN Reason: Pain, Mild (1-3) Docusate Sodium (Colace) 100 mg PO TID [facility] Last Admin: 07/22/17 08:19 Dose: 100 mg Enoxaparin Sodium (Lovenox) 40 mg SC DAILY [facility] PRN Reason: Protocol Last Admin: 07/22/17 08:20 Dose: 40 mg Ferrous Sulfate (Feosol) 325 mg PO TID [facility] Last Admin: 07/21/17 16:54 Dose: 325 mg Sodium Chloride (Sodium Chloride 0.9%) 500 mls @ 100 mls/hr IV .Q5H [facility] Last Admin: 07/22/17 02:30 Dose: Not Given Metoprolol Tartrate (Lopressor) 25 mg PO Q12 [facility] Fluticasone/Salmeterol (Advair Diskus 250/50) 1 puff IH BID PRN PRN Reason: Other - Labs Labs: 07/21/17 11:30 07/21/17 11:30 Assessment and Plan - Assessment and Plan (Free Text) Plan: Plan; Will discharge tomorrow after the infusion finishes
--- NOTE | 2017-07-22 13:52 | PQF GENQUE ---
This form is a permanent part of the medical record 07/22/17 Dr. Johnson Albert, Patient who currently has colon cancer is admitted for chemotherapy. Documentation of Chronic Anemia noted. H&H . and treated with ferrous sulfate. Would you be able to further clarify the etiology of the chronic anemia if known. Clarification of your documentation is requested to better reflect the severity of illness and intensity of treatment of your patient. Indicators present [] Specify: [] [] Specify: [] [] Specify: [] [] Specify: [] Location in the medical record that reflects the above clinical findings: [] Treatment Provided: [] PHYSICIAN'S RESPONSE Anemia from colon cancer Based on your medical judgment of the clinical indicators outlined above please clarify the following: [] Practitioner response [] If unable to determine, please check the box, sign and date. Present On Admission (POA) Indicator: [] Present at the time of admission [] Not present at the time of admission [] Clinically Undetermined In responding to this query, please exercise your independent professional judgment. The fact that a question is asked does not imply that any particular answer is desired or expected. Thank you for your clarification on this documentation. If you have any questions please call:extension [phone] * Thank you, Hortencia Jones RN CDMP MTDD
--- NOTE | 2017-07-23 08:00 | CP.PCM.DIS ---
Provider - Provider Date of Admission: 07/21/17 10:38 Attending physician: Dulce Maria Díaz MD Consults: Hematology Oncology- Dr. Eduardo Bermeo Time Spent in preparation of Discharge (in minutes): 20 Diagnosis - Discharge Diagnosis (1) Adenocarcinoma, colon Status: Acute (2) HTN (hypertension) Status: Chronic Comment: well controlled (3) HLD (hyperlipidemia) Status: Chronic Comment: well controlled Hospital Course - Lab Results Lab Results: Most Recent Lab Values WBC 9.4 K/uL (4.8-10.8) 07/21/17 11:30 RBC 4.18 Mil/uL (4.40-5.90) L 07/21/17 11:30 Hgb 10.6 g/dL (12.0-18.0) L 07/21/17 11:30 Hct 34.2 % (35.0-51.0) L 07/21/17 11:30 MCV 81.9 fl (80.0-94.0) D 07/21/17 11:30 MCH 25.2 pg (27.0-31.0) L 07/21/17 11:30 MCHC 30.8 g/dL (33.0-37.0) L 07/21/17 11:30 RDW 24.5 % (11.5-14.5) H 07/21/17 11:30 Plt Count 169 K/uL (130-400) 07/21/17 11:30 MPV 7.9 fl (7.2-11.7) 07/21/17 11:30 Neut % (Auto) 64.3 % (50.0-75.0) 07/21/17 11:30 Lymph % (Auto) 17.7 % (20.0-40.0) L 07/21/17 11:30 [place] % (Auto) 15.2 % (0.0-10.0) H 07/21/17 11:30 Eos % (Auto) 1.7 % (0.0-4.0) 07/21/17 11:30 Baso % (Auto) 1.1 % (0.0-2.0) 07/21/17 11:30 Neut # 6.1 K/uL (1.8-7.0) 07/21/17 11:30 Lymph # 1.7 K/uL (1.0-4.3) 07/21/17 11:30 [place] # 1.4 K/uL (0.0-0.8) H 07/21/17 11:30 Eos # 0.2 K/uL (0.0-0.7) 07/21/17 11:30 Baso # 0.1 K/uL (0.0-0.2) 07/21/17 11:30 Sodium 141 mmol/l (132-148) 07/21/17 11:30 Potassium 4.1 MMOL/L (3.6-5.0) 07/21/17 11:30 Chloride 102 mmol/L (98-107) 07/21/17 11:30 Carbon Dioxide 35 mmol/L (22-30) H 07/21/17 11:30 Anion Gap 8 (10-20) L 07/21/17 11:30 BUN 17 mg/dl (9-20) 07/21/17 11:30 Creatinine 0.7 mg/dl (0.8-1.5) L 07/21/17 11:30 Est GFR ( Amer) > 60 07/21/17 11:30 Est GFR (Non-Af Amer) > 60 07/21/17 11:30 Random Glucose 116 mg/dL (75-110) H 07/21/17 11:30 Calcium 8.8 mg/dL (8.4-10.2) 07/21/17 11:30 Total Bilirubin 0.3 mg/dl (0.2-1.3) 07/21/17 11:30 AST 33 U/L (17-59) 07/21/17 11:30 ALT 34 U/L (21-72) 07/21/17 11:30 Alkaline Phosphatase 114 U/L (38-126) 07/21/17 11:30 Total Protein 6.3 G/DL (6.3-8.2) 07/21/17 11:30 Albumin 2.8 g/dL (3.5-5.0) L 07/21/17 11:30 Globulin 3.6 gm/dL (2.2-3.9) 07/21/17 11:30 Albumin/Globulin Ratio 0.8 (1.0-2.1) L 07/21/17 11:30 - Hospital Course Hospital Course: Discharge Summary for [facility] Dr. Díaz 81 year old male with PMHx of HTN, HLD, a fib, colon adenocarinoma (diagnosed 08/10) admitted to [facility] chemotherapy cycle #5 for colon CA. During this admission, patient was given oxaliplatin, fluorouracil and leukovorin, followed by continuous infusion of fluorouracil for 44 hrs. Patient has completed cycle # 5 of chemotherapy and decision was made to discharge patient home. Upon discharge, decision was made to discontinue Simvastatin and Valsartan/ Hydrochlorothiazide secondary to well controlled blood pressure and cholesterol by Metoprolol and diet. Patient will follow up with heme/onc Dr. Eduardo Bermeo, [facility] Dr. Laila Bermeo, and PMD Dr. Alamo. Discharge Exam - Head Exam Head Exam: NORMAL INSPECTION - Eye Exam Eye Exam: Normal appearance - Neck Exam Neck exam: Full Rom - Respiratory Exam Respiratory Exam: NORMAL BREATHING PATTERN. absent: Prolonged Expiratory Phase , Rales, Rhonchi, Wheezes, Respiratory Distress, Stridor - Cardiovascular Exam Cardiovascular Exam: REGULAR RHYTHM, +S1, +S2 - GI/Abdominal Exam GI & Abdominal Exam: Normal Bowel Sounds, Soft - Extremities Exam Additional comments: +2 pitting edema noted to the lower extremity bilaterally below the level of the knees no calf tenderness bilaterally No calf tenderness with palpation SCDs intact and on - Neurological Exam Neurological exam: Alert, Oriented x3 - Skin Additional comments: Port-a-cath on R subclavian, clean, dry, intact with no strikethrough. No erythema surrounding site. Discharge Plan - Discharge Medications Prescriptions: Allopurinol [Zyloprim] 100 mg PO DAILY #30 tab Docusate [Colace] 100 mg PO BID PRN #30 cap PRN Reason: Constipation Ferrous Sulfate 325 mg PO BID #30 tablet - Follow Up Plan Condition: GOOD Disposition: HOME/ ROUTINE Patient education suggested?: Yes Instructions: Intravenous Chemotherapy (DC) Additional Instructions: Pt will f/u with Hematology Oncology Dr. Eduardo Bermeo on 07/28/17. -will return to infusion center Friday for blood work Pt will call to f/u with [facility] Dr. Laila Bermeo Pt will f/u with [facility] Dr. Alamo on 08/13/17 @ 11:20am Medication reconciled. Medication List: Metoprolol Tartrate (Lopressor) 25 mg PO Q12 Allopurinol (Zyloprim) 100 mg PO DAILY Celecoxib (Celebrex) 200 mg PO BID PRN Lipase/Protease/Amylase 1 cap PO BID Ferrous Sulfate (Feosol) 325 mg PO TID Omeprazole 40mg PO Daily Docusate Sodium (Colace) 100 mg PO TID Fluticasone/Salmeterol (Advair Diskus 250/50) 1 puff IH BID PRN Referrals: You Bermeo MD [Staff Provider] -
[2017-07-23 08:38] VITALS: BP 140/87; PULSE 73; TEMP 98.1; O2SAT 94
[2017-07-23] MEDS: Enoxaparin 40 mg Syringe SC SCH (09:12)
--- NOTE | 2017-07-23 10:30 | CP.PCM.PN ---
Subjective - Date & Time of Evaluation Date of Evaluation: 07/23/17 Time of Evaluation: 10:29 - Subjective Subjective: Pt has done well with with the chemotherapy infusion . Will discharge today and bring him back to the infusion center for blood test on Friday. Objective - Vital Signs/Intake and Output Vital Signs (last 24 hours): Temp Pulse Resp BP Pulse Ox 98.1 F 73 20 140/87 94 L 07/23/17 08:37 07/23/17 09:11 07/23/17 08:37 07/23/17 09:11 07/23/17 08:37 - Medications Medications: Current Medications Allopurinol (Zyloprim) 100 mg PO DAILY [facility] Last Admin: 07/23/17 09:11 Dose: 100 mg Celecoxib (Celebrex) 200 mg PO BID PRN PRN Reason: Pain, Mild (1-3) Docusate Sodium (Colace) 100 mg PO TID [facility] Last Admin: 07/23/17 09:12 Dose: 100 mg Enoxaparin Sodium (Lovenox) 40 mg SC DAILY [facility] PRN Reason: Protocol Last Admin: 07/23/17 09:12 Dose: 40 mg Ferrous Sulfate (Feosol) 325 mg PO TID [facility] Last Admin: 07/21/17 16:54 Dose: 325 mg Sodium Chloride (Sodium Chloride 0.9%) 500 mls @ 100 mls/hr IV .Q5H [facility] Last Admin: 07/22/17 02:30 Dose: Not Given Metoprolol Tartrate (Lopressor) 25 mg PO Q12 [facility] Last Admin: 07/23/17 09:11 Dose: 25 mg Fluticasone/Salmeterol (Advair Diskus 250/50) 1 puff IH BID PRN PRN Reason: Other - Labs Labs: 07/21/17 11:30 07/21/17 11:30
== END 2017-07-23 12:24 | disposition home or self-care (01) | DRG 847 ==
LOC: H.MEDSURG1 07-21 10:38
PROVIDERS: ADMIT Family Medicine Geriatric Medicine; ATTEND Family Medicine Geriatric Medicine
DX: Z51.11 Encounter for antineoplastic chemotherapy (principal); C18.7 Malignant neoplasm of sigmoid colon; I48.91 Unspecified atrial fibrillation; D63.0 Anemia in neoplastic disease; I10 Essential (primary) hypertension; E78.5 Hyperlipidemia, unspecified; M10.9 Gout, unspecified; Z87.891 Personal history of nicotine dependence; R19.7 Diarrhea, unspecified

== ENCOUNTER 2017-08-04 10:40 | Observation (INO) | payer MEDICARE ==
[2017-08-04 10:27] VITALS: BMI 25.0
[2017-08-04] MEDS ORDERED: Sodium Chloride 0.9% 500 ML IV SCH (11:15)
[2017-08-04] MEDS ORDERED: Dexamethasone 10 MG in Sodium Chloride 0.9% 50 ML IVPB ONE (11:16)
[2017-08-04] MEDS ORDERED: Fosaprepitant 150 MG in Sodium Chloride 0.9% 250 ML IVPB ONE (11:17)
[2017-08-04] MEDS ORDERED: WATER IV ONE (11:18)
[2017-08-04] MEDS ORDERED: DEXTROSE 5% IV ONE (11:18)
[2017-08-04] MEDS ORDERED: OXALIPLATIN IV ONE (11:18)
[2017-08-04] MEDS ORDERED: DEXTROSE 5% IVPB ONE (11:20)
[2017-08-04] MEDS ORDERED: LEUCOVORIN CALCIUM IVPB ONE (11:20)
[2017-08-04] MEDS ORDERED: WATER IVPB ONE (11:20)
[2017-08-04] MEDS ORDERED: FLUOROURACIL IV ONE ×2 (11:21→11:25)
[2017-08-04] MEDS ORDERED: CHEMO IV ONE (11:21)
[2017-08-04] MEDS ORDERED: SODIUM CHLORIDE 0.9% IV ONE (11:25)
--- NOTE | 2017-08-04 11:38 | CP.PCM.CON ---
History of Present Illness - History of Present Illness History of Present Illness: This is a 81 yrs old male who was diagnosed with a recto/sigmoid adenocarcinoma. he was ioperable at the time so neoadjuvant cheno was started.He has been tolerating it well, and a lot of symptoms are better. He is to receive his 6th dose of chemo today. He has no symptoms from the same. And no complaints at this time. He will e seen by GI in 1 week and decision will be made regarding him going for surgery. Past Patient History - Past Medical History & Family History Past Medical History?: Yes - Past Social History Smoking Status: Former Smoker - CARDIAC Hx Cardiac Disorders: Yes Hx Hypercholesterolemia: Yes Hx Hypertension: Yes - PULMONARY Hx Respiratory Disorders: Yes Hx Emphysema: Yes - NEUROLOGICAL Hx Neurological Disorder: No Hx Alzheimer's Disease: No HX Cerebrovascular Accident: No Hx Dementia: No Hx Dizziness: No Hx Meningitis: No Hx Migraine: No Hx Multiple Sclerosis: No Hx Paralysis: No Hx Parkinson's Disease: No Hx Seizures: No Hx Syncope: No Hx Transient Ischemic Attacks (TIA): No Hx Vertigo: No - HEENT Hx HEENT Problems: Yes Hx Blind: No Hx Cataracts: Yes (had sx) Hx Deafness: No Hx Difficulty Chewing: No Hx Epistaxis: No Hx Glaucoma: No Hx Macular Degeneration: No - RENAL Hx Chronic Kidney Disease: No Hx Dialysis: No Hx Kidney Stones: No Hx Neurogenic Bladder: No Hx Pyelonephritis: No Hx Renal (Kidney) Cancer: No Hx Renal Failure: No - ENDOCRINE/METABOLIC Hx Endocrine Disorders: No Hx Adrenal Cancer: No Hx Diabetes Insipidus: No Hx Diabetes Mellitus Type 1: No Hx Diabetes Mellitus Type 2: No Hx Hyperthyroidism: No Hx Hypothyroidism: No Hx Systemic Lupus Erythematosus: No - HEMATOLOGICAL/ONCOLOGICAL Hx Blood Disorders: Yes Hx Chemotherapy: Yes (started on 05/21/17) - INTEGUMENTARY Hx Dermatological Problems: No - MUSCULOSKELETAL/RHEUMATOLOGICAL Hx Musculoskeletal Disorders: No Hx Arthritis: No Hx Back Pain: No Hx Degenerative Joint Disease: No Hx Falls: No Hx Fractures: No Hx Gout: Yes Hx Herniated Disk: No Hx Myasthenia Gravis: No Hx Osteoarthritis: No Hx Osteomyelitis: No Hx Osteoporosis: No Hx Rhabdomyolysis: No Hx Rheumatoid Arthritis: No Hx Spinal Stenosis: No Hx Unsteady Gait: No - GASTROINTESTINAL Hx Gastrointestinal Disorders: Yes Hx Pancreatitis: Yes (CHRONIC) - GENITOURINARY/GYNECOLOGICAL Hx Genitourinary Disorders: No - PSYCHIATRIC Hx Psychophysiologic Disorder: No Hx Emotional Abuse: No Hx Physical Abuse: No Hx Substance Use: No - SURGICAL HISTORY Hx Surgeries: Yes Other/Comment: hernia left inguinal,cataracts [place] - ANESTHESIA Hx Anesthesia: Yes Hx Anesthesia Reactions: No Hx Malignant Hyperthermia: No Meds Allergies/Adverse Reactions: Allergies Allergy/AdvReac Type Severity Reaction Status Date / Time No Known Allergies Allergy Verified 07/28/17 11:03 - Medications Medications: Current Medications Famotidine (Pepcid) 20 mg IVP STAT [facility] Stop: 08/04/17 11:19 Diphenhydramine HCl 25 mg/ (Sodium Chloride) 50.5 mls @ 101 mls/hr IVPB ONCE ONE Stop: 08/04/17 11:45 Dexamethasone 10 mg/ Sodium (Chloride) 51 mls @ 102 mls/hr IVPB ONCE ONE Stop: 08/04/17 11:45 Oxaliplatin 144 mg/ Dextrose 278.8 mls @ 0 mls/hr IV ONCE ONE PRN Reason: As Directed Stop: 08/04/17 11:19 Fosaprepitant 150 mg/ Sodium (Chloride) 250 mls @ 500 mls/hr IVPB ONCE ONE Stop: 08/04/17 11:46 Fluorouracil 680 mg/ CHEMO IV 13.6 mls @ 0 mls/hr IV ONCE ONE PRN Reason: As Directed Stop: 08/04/17 11:22 Leucovorin Calcium 680 mg/ (Dextrose) 250 mls @ 0 mls/hr IVPB ONCE ONE PRN Reason: As Directed Stop: 08/04/17 11:21 Sodium Chloride (Sodium Chloride 0.9%) 500 mls @ 80 mls/hr IV .Q6H15M [facility] Ondansetron HCl 16 mg/ Sodium (Chloride) 58 mls @ 116 mls/hr IVPB ONCE ONE Stop: 08/04/17 11:45 Fluorouracil 4,080 mg/ Sodium (Chloride) 1,081.6 mls @ 0 mls/hr IV ONCE ONE PRN Reason: As Directed Stop: 08/04/17 11:26 Lidocaine/Prilocaine (Lidocaine/Prilocaine 2.5%-2.5%) 1 applic TP ONCE ONE Stop: 08/04/17 11:17 Physical Exam - Additional Findings Additional findings: Physical exam; Pt is alert, in no acute distress meck; Supple, no adenopathy Chest; Clear, no rales or rhonchi Heart; RSR, n murmur Abd; Soft. no mass, no h/s megaly Assessment & Plan - Assessment and Plan (Free Text) Assessment: Impression; Colon cancer , Plan: Plan; will receive oxaliplatin , leucovorin and fluorouracil bolus Then fluorouracil as a contiuous infusion over 44 hrs - Date & Time Date: 08/04/17 Time: 11:43
[2017-08-04 11:43] LABS: BASO # 0.1 K/uL (0.0-0.2); BASO % 1.9 % (0.0-2.0); EOS # 0.3 K/uL (0.0-0.7); HEMATOCRIT 33.8 % (35.0-51.0); LYMPH # 1.1 K/uL (1.0-4.3); LYMPH % 33.6 % (20.0-40.0); MEAN CELL VOLUME 83.4 fl (80.0-94.0); MEAN CORPUSCULAR HEMOGLOBIN 25.6 pg (27.0-31.0); MEAN CORPUSCULAR HGB CONC 30.8 g/dL (33.0-37.0); MEAN PLATELET VOLUME 8.6 fl (7.2-11.7); MONO # 0.5 K/uL (0.0-0.8); MONO % 15.6 % (0.0-10.0); NEUT # 1.3 K/uL (1.8-7.0); NEUT % 40.9 % (50.0-75.0); NRBC % 0.3 % (0.0-0.0); RED CELL DISTRIBUTION WIDTH 26.4 % (11.5-14.5); WHITE BLOOD COUNT 3.2 K/uL (4.8-10.8)
[2017-08-04] MEDS ORDERED: Lidocaine/Prilocaine CREAM 5GM TP ONE (12:00)
[2017-08-04 12:11] LABS: ALB/GLOB RATIO 0.9 (1.0-2.1); ALKALINE PHOSPHATASE 163 U/L (38-126); ALT/SGPT 33 U/L (21-72); AST/SGOT 35 U/L (17-59); BILIRUBIN,TOTAL 0.5 mg/dl (0.2-1.3); BLOOD UREA NITROGEN 17 mg/dl (9-20); CALCIUM 9.4 mg/dL (8.4-10.2); CARBON DIOXIDE 33 mmol/L (22-30); CHLORIDE 106 mmol/L (98-107); GFR AFRICAN-AMERICAN > 60; GLUCOSE,RANDOM 98 mg/dL (75-110); SODIUM 143 mmol/l (132-148); TOTAL PROTEIN 6.5 G/DL (6.3-8.2)
--- NOTE | 2017-08-04 14:26 | CP.PCM.HP ---
History of Present Illness - History of Present Illness History of Present Illness: 81 YO M w/ PMH of atrial fibrilation, HTN, HLD, and colon cancer ( diagnosed on 05/06/17), gout was admitted to [facility] for chemotherapy # 6. Patient is to go to the infusion center for 3 days. - Colonoscopy on 05/06/17 showed frond-like/villous, fungating, infiltrative and ulcerated partially obstructing 10 cm mass in the recto-sigmoid colon and sigmoid colon area. There was also 20 mm polyps found in the sigmoid colon. The biopsy showed colonic adenocarcinoma. Patient ambulates with a cane. PCP: Dr. Solomon Alamo Information Security Specialist: Dr. Laila Bermeo Child Adolescent Psychiatrist/Oncologist: Dr. Eduardo Bermeo GI: Dr Ashley Henderson. PMH: Afib, HTN, HLD, colon cancer PSH: Umbilical hernia repair 2006 and cataract surgery. MEDS: Valsartan/ HCTZ 160-12.5mg PO 1 tab daily. Omeprazole 40mg PO 1 tab daily. Ferrous sulfate PO. Docuste 100 mg Simvastatin 20mg @night daily Metoprolol Tartrate 25mg BID Pancrelipase 87202 units. 3x day with meals Celecoxib 200mg PO BID PRN Advair 250/50 BID PRN ALL: NKDA FH: father- colon CA; paternal uncle- lung CAFH: father- colon CA; paternal uncle- lung CAFH: father- colon CA; paternal uncle- lung CA SH: former smoker, quit 20 years ago (1 PPD x 40 years) Drinks alcohol socially. Denies ilicit drug use. Past Patient History - Past Medical History & Family History Past Medical History?: Yes - Past Social History Smoking Status: Former Smoker - CARDIAC Hx Cardiac Disorders: Yes Hx Hypercholesterolemia: Yes Hx Hypertension: Yes - PULMONARY Hx Respiratory Disorders: Yes Hx Emphysema: Yes - NEUROLOGICAL Hx Neurological Disorder: No Hx Alzheimer's Disease: No HX Cerebrovascular Accident: No Hx Dementia: No Hx Dizziness: No Hx Meningitis: No Hx Migraine: No Hx Multiple Sclerosis: No Hx Paralysis: No Hx Parkinson's Disease: No Hx Seizures: No Hx Syncope: No Hx Transient Ischemic Attacks (TIA): No Hx Vertigo: No - HEENT Hx HEENT Problems: Yes Hx Blind: No Hx Cataracts: Yes (had sx) Hx Deafness: No Hx Difficulty Chewing: No Hx Epistaxis: No Hx Glaucoma: No Hx Macular Degeneration: No - RENAL Hx Chronic Kidney Disease: No Hx Dialysis: No Hx Kidney Stones: No Hx Neurogenic Bladder: No Hx Pyelonephritis: No Hx Renal (Kidney) Cancer: No Hx Renal Failure: No - ENDOCRINE/METABOLIC Hx Endocrine Disorders: No Hx Adrenal Cancer: No Hx Diabetes Insipidus: No Hx Diabetes Mellitus Type 1: No Hx Diabetes Mellitus Type 2: No Hx Hyperthyroidism: No Hx Hypothyroidism: No Hx Systemic Lupus Erythematosus: No - HEMATOLOGICAL/ONCOLOGICAL Hx Blood Disorders: Yes Hx Chemotherapy: Yes (started on 05/21/17) - INTEGUMENTARY Hx Dermatological Problems: No - MUSCULOSKELETAL/RHEUMATOLOGICAL Hx Musculoskeletal Disorders: No Hx Arthritis: No Hx Back Pain: No Hx Degenerative Joint Disease: No Hx Falls: No Hx Fractures: No Hx Gout: Yes Hx Herniated Disk: No Hx Myasthenia Gravis: No Hx Osteoarthritis: No Hx Osteomyelitis: No Hx Osteoporosis: No Hx Rhabdomyolysis: No Hx Rheumatoid Arthritis: No Hx Spinal Stenosis: No Hx Unsteady Gait: No - GASTROINTESTINAL Hx Gastrointestinal Disorders: Yes Hx Pancreatitis: Yes (CHRONIC) - GENITOURINARY/GYNECOLOGICAL Hx Genitourinary Disorders: No - PSYCHIATRIC Hx Psychophysiologic Disorder: No Hx Emotional Abuse: No Hx Physical Abuse: No Hx Substance Use: No - SURGICAL HISTORY Hx Surgeries: Yes Other/Comment: hernia left inguinal,cataracts [place] - ANESTHESIA Hx Anesthesia: Yes Hx Anesthesia Reactions: No Hx Malignant Hyperthermia: No Meds Allergies/Adverse Reactions: Allergies Allergy/AdvReac Type Severity Reaction Status Date / Time No Known Allergies Allergy Verified 07/28/17 11:03 Results - Labs Result Diagrams: 08/04/17 11:34 08/04/17 11:34 Labs: Laboratory Results - last 24 hr 08/04/17 08/04/17 11:34 11:34 WBC 3.2 L RBC 4.06 L Hgb 10.4 L Hct 33.8 L MCV 83.4 MCH 25.6 L MCHC 30.8 L RDW 26.4 H Plt Count 67 L D MPV 8.6 Neut % (Auto) 40.9 L Lymph % (Auto) 33.6 [place] % (Auto) 15.6 H Eos % (Auto) 8.0 H Baso % (Auto) 1.9 Neut # 1.3 L Lymph # 1.1 [place] # 0.5 Eos # 0.3 Baso # 0.1 Sodium 143 Potassium 4.0 Chloride 106 Carbon Dioxide 33 H Anion Gap 8 L BUN 17 Creatinine 0.7 L Est GFR ( Amer) > 60 Est GFR (Non-Af Amer) > 60 Random Glucose 98 Calcium 9.4 Total Bilirubin 0.5 AST 35 ALT 33 Alkaline Phosphatase 163 H D Total Protein 6.5 Albumin 3.0 L Globulin 3.5 Albumin/Globulin Ratio 0.9 L Assessment & Plan - Assessment and Plan (Free Text) Assessment: 81 year old male with PMHx of HTN, HLD, a fib, colon cancer is admitted for chemotherapy. Cycle #6 1.) Colon adenocarcinoma - Dr. Eduardo Bermeo hem/ onc consulted - Will receive chemotherapy with oxaliplitin, fluorouracil and leucovorin. - Zofran PRN 2) HTN - -Continue metoprolol tartrate 25 mg PO BID 3) History of Atrial fibrilation -Stable -[id number] score 3 -Continue metoprolol tartrate 25 mg PO BID -will continue to monitor 4) DVT prophylaxis -Lovenox 40mg SQ daily Code status -Full code
== END 2017-08-04 13:00 | disposition home or self-care (01) ==
LOC: H.MEDSURG1 10:40 → INTOOBSV 10:40 → H.MEDSURG1 10:51
PROVIDERS: ADMIT Family Medicine Geriatric Medicine; ATTEND Family Medicine Geriatric Medicine
DX: C18.7 Malignant neoplasm of sigmoid colon (principal); Z53.9 Procedure and treatment not carried out, unspecified reason; I10 Essential (primary) hypertension; E78.00 Pure hypercholesterolemia, unspecified; J43.9 Emphysema, unspecified; Z92.21 Personal history of antineoplastic chemotherapy; Z87.891 Personal history of nicotine dependence
CPT/HCPCS: 36415; 36591; 80053; 85025; G0378; J7040

== ENCOUNTER 2017-08-19 10:54 | Inpatient (IN) | payer MEDICARE ==
[2017-08-19 11:04] VITALS: BMI 22.8
[2017-08-19] MEDS ORDERED: Sodium Chloride 0.9% 500 ML IV SCH (11:45)
--- NOTE | 2017-08-19 11:46 | CP.PCM.HP ---
<Matthieu Cisse - Last Filed: 08/19/17 17:30> History of Present Illness - History of Present Illness History of Present Illness: 81 y.o old male with PMHx of atrial fib, HTN, HLD, and colon cancer (diagnosed on 05/06/17), gout admitted to [facility] for chemotherapy. He is resting comfortably sitting in his chair, in NAD, and AAOx3. Patient goes to the [facility] infusion center for chemotherapy for 3 days. Patient reports that he is feeling well today. Colonoscopy on 05/06/17 showed frond-like/villous, fungating, infiltrative and ulcerated partially obstructing 10 cm mass in the recto- sigmoid colon and sigmoid colon area. There was also 20 mm polyps found in the sigmoid colon. The biopsy showed colonic adenocarcinoma. Patient ambulates with a cane. Since his last time here the patient states that he lost 4 pounds. Denies any problems with defecation, denies any blood in stools. Denies any chest pain, SOB, nausea, or vomiting. PCP: Dr. Solomon Alamo Sales Administration Specialist: Dr. Laila Bermeo Technology Director/Oncologist: Dr. Eduardo Bermeo GI: Dr Ashley Henderson. PMH: Afib, HTN, HLD, colon cancer PSH: Umbilical hernia repair 2006 and cataract surgery. MEDS: Metoprolol Tartrate 25mg BID Probenacid 500 mg BID Colchine .5 mg BID Probenacid 500 mg BID ALL: NKDA FH: father- colon CA; paternal uncle- lung CAFH: father- colon CA; paternal uncle- lung CAFH: father- colon CA; paternal uncle- lung CA SH: former smoker, quit 20 years ago (1 PPD x 40 years) Drinks alcohol socially. Denies ilicit drug use. Present on Admission - Present on Admission Any Indicators Present on Admission: No Past Patient History - Past Medical History & Family History Past Medical History?: Yes - Past Social History Smoking Status: Former Smoker - CARDIAC Hx Cardiac Disorders: Yes Hx Hypercholesterolemia: Yes Hx Hypertension: Yes - PULMONARY Hx Respiratory Disorders: Yes Hx Emphysema: Yes - NEUROLOGICAL Hx Neurological Disorder: No Hx Alzheimer's Disease: No HX Cerebrovascular Accident: No Hx Dementia: No Hx Dizziness: No Hx Meningitis: No Hx Migraine: No Hx Multiple Sclerosis: No Hx Paralysis: No Hx Parkinson's Disease: No Hx Seizures: No Hx Syncope: No Hx Transient Ischemic Attacks (TIA): No Hx Vertigo: No - HEENT Hx HEENT Problems: Yes Hx Blind: No Hx Cataracts: Yes (had sx) Hx Deafness: No Hx Difficulty Chewing: No Hx Epistaxis: No Hx Glaucoma: No Hx Macular Degeneration: No - RENAL Hx Chronic Kidney Disease: No Hx Dialysis: No Hx Kidney Stones: No Hx Neurogenic Bladder: No Hx Pyelonephritis: No Hx Renal (Kidney) Cancer: No Hx Renal Failure: No - ENDOCRINE/METABOLIC Hx Endocrine Disorders: No Hx Adrenal Cancer: No Hx Diabetes Insipidus: No Hx Diabetes Mellitus Type 1: No Hx Diabetes Mellitus Type 2: No Hx Hyperthyroidism: No Hx Hypothyroidism: No Hx Systemic Lupus Erythematosus: No - HEMATOLOGICAL/ONCOLOGICAL Hx Blood Disorders: Yes Hx Chemotherapy: Yes (started on 05/21/17) - INTEGUMENTARY Hx Dermatological Problems: No - MUSCULOSKELETAL/RHEUMATOLOGICAL Hx Musculoskeletal Disorders: No Hx Arthritis: No Hx Back Pain: No Hx Degenerative Joint Disease: No Hx Falls: No Hx Fractures: No Hx Gout: Yes Hx Herniated Disk: No Hx Myasthenia Gravis: No Hx Osteoarthritis: No Hx Osteomyelitis: No Hx Osteoporosis: No Hx Rhabdomyolysis: No Hx Rheumatoid Arthritis: No Hx Spinal Stenosis: No Hx Unsteady Gait: No - GASTROINTESTINAL Hx Gastrointestinal Disorders: Yes Hx Pancreatitis: Yes (CHRONIC) - GENITOURINARY/GYNECOLOGICAL Hx Genitourinary Disorders: No - PSYCHIATRIC Hx Substance Use: No - SURGICAL HISTORY Hx Surgeries: Yes Other/Comment: hernia left inguinal,cataracts [place] - ANESTHESIA Hx Anesthesia: Yes Hx Anesthesia Reactions: No Hx Malignant Hyperthermia: No Meds Allergies/Adverse Reactions: Allergies Allergy/AdvReac Type Severity Reaction Status Date / Time No Known Allergies Allergy Verified 08/19/17 11:04 Physical Exam - Constitutional Appears: No Acute Distress - Head Exam Head Exam: NORMAL INSPECTION - Respiratory Exam Respiratory Exam: Clear to Auscultation Bilateral, NORMAL BREATHING PATTERN. absent: Rhonchi, Wheezes Additional comments: subclavian access noted on right side - Cardiovascular Exam Cardiovascular Exam: REGULAR RHYTHM, +S1, +S2 - GI/Abdominal Exam GI & Abdominal Exam: Normal Bowel Sounds, Soft. absent: Tenderness - Extremities Exam Extremities exam: Positive for: normal inspection. Negative for: calf tenderness - Neurological Exam Neurological exam: Alert, CN II-XII Intact, Oriented x3 Results - Labs Result Diagrams: 08/19/17 13:05 Assessment & Plan - Assessment and Plan (Free Text) Assessment: 81 year old male with PMHx of HTN, HLD, a fib, colon cancer is admitted for chemotherapy. Cycle # 6. Plan: Colon adenocarcinoma - Chemotherapy cycle # 6 -Dr Erna Bermeo heme/onc consulted -Will receive chemotherapy with oxaliplitin, fluorouracil and leucovorin. -Zofran PRN -management per heme/onc Hypertension -well controlled -will hold home meds - Metoprolol Tartrate 25mg PO BID History of Atrial fibrilation -Stable -[id number] score 3 -Continue metoprolol tartrate 25 mg PO BID -will continue to monitor Gout -Probenecid 500 mg BID - Colchicine .6 BID Diet -Heart healthy DVT prophylaxis -Lovenox 40mg SQ daily Code status -Full code <Faina Jurado - Last Filed: 08/20/17 07:37> Results - Vital Signs Recent Vital Signs: Last Vital Signs Temp 97.3 F L 08/20/17 00:04 Pulse 100 H 08/20/17 00:04 Resp 18 08/20/17 00:04 BP 143/89 08/20/17 00:04 Pulse Ox 95 08/20/17 00:04 - Labs Result Diagrams: 08/19/17 13:05 Labs: Laboratory Results - last 24 hr 08/19/17 13:05 Sodium 142 Potassium 3.8 Chloride 102 Carbon Dioxide 36 H Anion Gap 8 L BUN 15 Creatinine 0.7 L Est GFR ( Amer) > 60 Est GFR (Non-Af Amer) > 60 Random Glucose 88 Uric Acid 4.1 Calcium 9.1 Total Bilirubin 0.5 AST 37 ALT 26 Alkaline Phosphatase 169 H Total Protein 6.8 Albumin 3.1 L Globulin 3.7 Albumin/Globulin Ratio 0.8 L Attending/Attestation - Attestation I have fully participated in the care of the patient.: Yes I have reviewed all pertinent clinical information: Yes Notes (Text): 08/20/17 07:36 Patient admitted for chemotherapy. Case discussed with resident. Chart reviewed. Agree with plan.
[2017-08-19] MEDS ORDERED: Lidocaine/Prilocaine CREAM 5GM TP SCH (12:00)
[2017-08-19] MEDS ORDERED: Acetaminophen 650mg/20.3ml solution UD PO SCH (12:00)
[2017-08-19] MEDS ORDERED: DiphenhydrAMINE 50 mg/ml Inj IVP SCH ×2 (12:00→12:15)
[2017-08-19] MEDS ORDERED: Dexamethasone 10 MG in Sodium Chloride 0.9% 50 ML IVPB SCH (12:00)
[2017-08-19] MEDS ORDERED: WATER IVPB SCH ×2 (12:15→12:30)
[2017-08-19] MEDS ORDERED: DEXTROSE 5% IVPB SCH ×2 (12:15→12:30)
[2017-08-19] MEDS ORDERED: DEXTROSE 5% IV SCH (12:15)
[2017-08-19] MEDS ORDERED: WATER IV SCH (12:15)
[2017-08-19] MEDS ORDERED: FLUOROURACIL IV SCH ×2 (12:15→12:30)
[2017-08-19] MEDS ORDERED: SODIUM CHLORIDE 0.9% IV SCH ×2 (12:15→12:30)
[2017-08-19] MEDS ORDERED: OXALIPLATIN IV SCH (12:15)
[2017-08-19] MEDS ORDERED: LEUCOVORIN CALCIUM IVPB SCH ×2 (12:15→12:30)
[2017-08-19 13:32] LABS: ALKALINE PHOSPHATASE 169 U/L (38-126); ALT/SGPT 26 U/L (21-72); AST/SGOT 37 U/L (17-59); BILIRUBIN,TOTAL 0.5 mg/dl (0.2-1.3); BLOOD UREA NITROGEN 15 mg/dl (9-20); CALCIUM 9.1 mg/dL (8.4-10.2); CARBON DIOXIDE 36 mmol/L (22-30); CHLORIDE 102 mmol/L (98-107); GFR AFRICAN-AMERICAN > 60; GLUCOSE,RANDOM 88 mg/dL (75-110); POTASSIUM 3.8 MMOL/L (3.6-5.0); SODIUM 142 mmol/l (132-148); TOTAL PROTEIN 6.8 G/DL (6.3-8.2); URIC ACID 4.1 mg/Dl (3.5-8.5)
[2017-08-19 13:33] LABS: ALB/GLOB RATIO 0.8 (1.0-2.1)
[2017-08-19] MEDS: Enoxaparin 40 mg Syringe SC SCH (17:40)
[2017-08-19] MEDS: COLCHICINE 0.6 MG CAPSULE PO SCH (17:40)
[2017-08-19] MEDS ORDERED: Lidocaine/Prilocaine CREAM 5GM TP ONE (19:20)
[2017-08-20 07:52] LABS: HEMATOCRIT 38.2 % (35.0-51.0); MEAN CELL VOLUME 87.4 fl (80.0-94.0); MEAN CORPUSCULAR HEMOGLOBIN 26.4 pg (27.0-31.0); MEAN CORPUSCULAR HGB CONC 30.2 g/dL (33.0-37.0); RED CELL DISTRIBUTION WIDTH 25.2 % (11.5-14.5); WHITE BLOOD COUNT 6.5 K/uL (4.8-10.8)
[2017-08-20] MEDS ORDERED: COLCHICINE 0.6 MG CAPSULE PO SCH (09:00)
--- NOTE | 2017-08-20 09:19 | CP.PCM.PN ---
<Elyse Lopez - Last Filed: 08/20/17 12:13> Subjective - Date & Time of Evaluation Date of Evaluation: 08/20/17 Time of Evaluation: 08:15 - Subjective Subjective: Pt seen and evaluated at bedside; was eating breakfast and appeared comfortable. Reports no acute events overnight, denies side effects of chemotherapy. Denies chest pain, sob, abdominal pain/discomfort, leg/calf pain/ swelling. Objective - Vital Signs/Intake and Output Vital Signs (last 24 hours): Temp Pulse Resp BP Pulse Ox 97.9 F 113 H 20 135/84 95 08/20/17 08:39 08/20/17 08:39 08/20/17 08:39 08/20/17 08:39 08/20/17 08:39 - Medications Medications: Current Medications Colchicine (Colchicine) 0.6 mg PO BID [facility] Last Admin: 08/19/17 17:40 Dose: 0.6 mg Enoxaparin Sodium (Lovenox) 40 mg SC DAILY [facility] PRN Reason: Protocol Last Admin: 08/19/17 17:40 Dose: 40 mg Sodium Chloride (Sodium Chloride 0.9%) 500 mls @ 80 mls/hr IV .Q6H15M [facility] Last Admin: 08/19/17 11:50 Dose: 80 mls/hr Fluorouracil 3,060 mg/ Sodium (Chloride) 1,061.2 mls @ 24.118 mls/hr IV ONCE [facility] PRN Reason: As Directed Stop: 08/21/17 08:30 Last Admin: 08/19/17 16:18 Dose: 24.118 mls/hr Metoprolol Tartrate (Lopressor) 25 mg PO BID MAGGIE Probenecid (Probenecid) 500 mg PO BID [facility] - Labs Labs: 08/20/17 07:50 08/19/17 13:05 - Constitutional Appears: No Acute Distress - Head Exam Head Exam: ATRAUMATIC, NORMAL INSPECTION, NORMOCEPHALIC - Eye Exam Eye Exam: EOMI, Normal appearance - ENT Exam ENT Exam: Mucous Membranes Moist - Respiratory Exam Respiratory Exam: NORMAL BREATHING PATTERN - Cardiovascular Exam Cardiovascular Exam: REGULAR RHYTHM - GI/Abdominal Exam GI & Abdominal Exam: Soft - Back Exam Back Exam: NORMAL INSPECTION - Neurological Exam Neurological Exam: Alert, Awake, Oriented x3 - Skin Skin Exam: Dry, Warm Assessment and Plan - Assessment and Plan (Free Text) Assessment: 81 yo M with colon ca admitted for chemotherapy infusion for 3 days. Today is Day 2. Tolerating chemotherapy well. Plan: 1) Colon adenocarcinoma -Chemotherapy cycle # 6 -Dr Erna Bermeo heme/onc consulted -Receiving chemotherapy with oxaliplitin, fluorouracil and leucovorin; day 2 of this cycle -Zofran PRN -Management per heme/onc 2) Hypertension -Well controlled -Will hold home meds -Metoprolol Tartrate 25mg PO BID -Questionable etiology as to why patient was on Plavix; he denies history of SC , stroke, clots. Discontinue plavix. 3) History of Atrial fibrilation -Stable -[id number] score 3 -Continue metoprolol tartrate 25 mg PO BID -Will continue to monitor 4) Gout -Probenecid 500 mg BID -Colchicine 0.6mg BID 5) Diet -Heart healthy 6) DVT prophylaxis -Lovenox 40mg SQ daily <Faina Jurado - Last Filed: 08/22/17 07:38> Objective - Vital Signs/Intake and Output Vital Signs (last 24 hours): Temp Pulse Resp BP Pulse Ox 98.0 F 95 H 20 125/80 96 08/21/17 07:22 08/21/17 09:06 08/21/17 07:22 08/21/17 09:06 08/21/17 07:22 - Labs Labs: 08/20/17 07:50 08/19/17 13:05 Attending/Attestation - Attestation I have personally seen and examined this patient.: Yes I have fully participated in the care of the patient.: Yes I have reviewed all pertinent clinical information, including history, physical exam and plan: Yes Notes (Text): 08/22/17 07:38 ATTENDING NOTE ATTESTATION Patient seen and examined. Case discussed with resident. Agree with findings and plan.
--- NOTE | 2017-08-20 09:57 | CP.PCM.PN ---
Subjective - Date & Time of Evaluation Date of Evaluation: 08/20/17 Time of Evaluation: 09:54 - Subjective Subjective: Pt is on second day of fluorouracil infusion. .No side effects seen. will discharge after the infusion finishes, to return to infusion center in 1 week for cbc and in 3 weeks for chemo Objective - Vital Signs/Intake and Output Vital Signs (last 24 hours): Temp Pulse Resp BP Pulse Ox 97.9 F 113 H 20 135/84 95 08/20/17 08:39 08/20/17 08:39 08/20/17 08:39 08/20/17 08:39 08/20/17 08:39 - Medications Medications: Current Medications Colchicine (Colchicine) 0.6 mg PO BID REPLACED BY [facility] Last Admin: 08/19/17 17:40 Dose: 0.6 mg Enoxaparin Sodium (Lovenox) 40 mg SC DAILY [facility]PLACED BY [facility] PRN Reason: Protocol Last Admin: 08/19/17 17:40 Dose: 40 mg Sodium Chloride (Sodium Chloride 0.9%) 500 mls @ 80 mls/hr IV .Q6H15M REPLACED BY [facility] Last Admin: 08/19/17 11:50 Dose: 80 mls/hr Fluorouracil 3,060 mg/ Sodium (Chloride) 1,061.2 mls @ 24.118 mls/hr IV ONCE REPLACED BY [facility] PRN Reason: As Directed Stop: 08/21/17 08:30 Last Admin: 08/19/17 16:18 Dose: 24.118 mls/hr Metoprolol Tartrate (Lopressor) 25 mg PO BID MAGGIE Probenecid (Probenecid) 500 mg PO BID REPLACED BY [facility] - Labs Labs: 08/20/17 07:50 08/19/17 13:05
[2017-08-20] MEDS: COLCHICINE 0.6 MG CAPSULE PO SCH ×2 (11:36→17:30)
[2017-08-20] MEDS: Enoxaparin 40 mg Syringe SC SCH (11:37)
[2017-08-21 01:23] LABS: RBC URINE 3 /hpf (0-3); URINE BILIRUBIN NEGATIVE (NEGATIVE); URINE BLOOD NEGATIVE (NEGATIVE); URINE COLOR YELLOW (YELLOW); URINE GLUCOSE (UA) NEG (Normal); URINE KETONE NEGATIVE (NEGATIVE); URINE LEUKOCYTE ESTERASE NEG Leu/uL (Negative); URINE PROTEIN NEGATIVE (NEGATIVE); URINE UROBILINOGEN 0.2-1.0 mg/dL (0.2-1.0); WBC URINE < 1 /hpf (0-5)
[2017-08-21 07:23] VITALS: BP 125/80; PULSE 95; RESP 20; TEMP 98; O2SAT 96
--- NOTE | 2017-08-21 08:14 | CP.PCM.PN ---
Subjective - Date & Time of Evaluation Date of Evaluation: 08/21/17 Time of Evaluation: 08:11 - Subjective Subjective: Pt has done well with his chemotherapy without any side effects, Will be discharged after his infusion finishes. He is to see his Hub Bander this week. He will have a colonoscopy to see if he is a candidate for surgery now. Objective - Vital Signs/Intake and Output Vital Signs (last 24 hours): Temp Pulse Resp BP Pulse Ox 98.0 F 95 H 20 125/80 96 08/21/17 07:22 08/21/17 07:22 08/21/17 07:22 08/21/17 07:22 08/21/17 07:22 - Medications Medications: Current Medications Colchicine (Colchicine) 0.6 mg PO BID [facility] Last Admin: 08/20/17 17:30 Dose: 0.6 mg Enoxaparin Sodium (Lovenox) 40 mg SC DAILY [facility] PRN Reason: Protocol Last Admin: 08/20/17 11:37 Dose: 40 mg Sodium Chloride (Sodium Chloride 0.9%) 500 mls @ 80 mls/hr IV .Q6H15M [facility] Last Admin: 08/19/17 11:50 Dose: 80 mls/hr Fluorouracil 3,060 mg/ Sodium (Chloride) 1,061.2 mls @ 24.118 mls/hr IV ONCE [facility] PRN Reason: As Directed Stop: 08/21/17 08:30 Last Admin: 08/19/17 16:18 Dose: 24.118 mls/hr Metoprolol Tartrate (Lopressor) 25 mg PO BID [facility] Last Admin: 08/20/17 17:30 Dose: 25 mg Probenecid (Probenecid) 500 mg PO BID [facility] Last Admin: 08/20/17 18:15 Dose: 500 mg - Labs Labs: 08/20/17 07:50 08/19/17 13:05
[2017-08-21] MEDS: COLCHICINE 0.6 MG CAPSULE PO SCH (09:06)
[2017-08-21] MEDS: Enoxaparin 40 mg Syringe SC SCH (09:07)
--- NOTE | 2017-08-21 12:11 | CP.PCM.DIS ---
Provider - Provider Date of Admission: 08/19/17 11:24 Attending physician: Faina Jurado MD Primary care physician: Dr. Alamo Consults: Heme-Onc - Dr. Erna Bermeo Time Spent in preparation of Discharge (in minutes): 30 Diagnosis - Discharge Diagnosis (1) Adenocarcinoma of colon Status: Acute Hospital Course - Lab Results Lab Results: Most Recent Lab Values WBC 6.5 K/uL (4.8-10.8) 08/20/17 07:50 RBC 4.37 Mil/uL (4.40-5.90) L 08/20/17 07:50 Hgb 11.6 g/dL (12.0-18.0) L 08/20/17 07:50 Hct 38.2 % (35.0-51.0) 08/20/17 07:50 MCV 87.4 fl (80.0-94.0) 08/20/17 07:50 MCH 26.4 pg (27.0-31.0) L 08/20/17 07:50 MCHC 30.2 g/dL (33.0-37.0) L 08/20/17 07:50 RDW 25.2 % (11.5-14.5) H 08/20/17 07:50 Plt Count 109 K/uL (130-400) L D 08/20/17 07:50 Sodium 142 mmol/l (132-148) 08/19/17 13:05 Potassium 3.8 MMOL/L (3.6-5.0) 08/19/17 13:05 Chloride 102 mmol/L (98-107) 08/19/17 13:05 Carbon Dioxide 36 mmol/L (22-30) H 08/19/17 13:05 Anion Gap 8 (10-20) L 08/19/17 13:05 BUN 15 mg/dl (9-20) 08/19/17 13:05 Creatinine 0.7 mg/dl (0.8-1.5) L 08/19/17 13:05 Est GFR ( Amer) > 60 08/19/17 13:05 Est GFR (Non-Af Amer) > 60 08/19/17 13:05 Random Glucose 88 mg/dL (75-110) 08/19/17 13:05 Uric Acid 4.1 mg/Dl (3.5-8.5) 08/19/17 13:05 Calcium 9.1 mg/dL (8.4-10.2) 08/19/17 13:05 Total Bilirubin 0.5 mg/dl (0.2-1.3) 08/19/17 13:05 AST 37 U/L (17-59) 08/19/17 13:05 ALT 26 U/L (21-72) 08/19/17 13:05 Alkaline Phosphatase 169 U/L (38-126) H 08/19/17 13:05 Total Protein 6.8 G/DL (6.3-8.2) 08/19/17 13:05 Albumin 3.1 g/dL (3.5-5.0) L 08/19/17 13:05 Globulin 3.7 gm/dL (2.2-3.9) 08/19/17 13:05 Albumin/Globulin Ratio 0.8 (1.0-2.1) L 08/19/17 13:05 Urine Color Yellow (YELLOW) 08/20/17 22:00 Urine Clarity Clear (Clear) 08/20/17 22:00 Urine pH 5.0 (5.0-8.0) 08/20/17 22:00 Ur Specific [place] 1.013 (1.003-1.030) 08/20/17 22:00 Urine Protein Negative mg/dL (NEGATIVE) 08/20/17 22:00 Urine Glucose (UA) Neg mg/dL (Normal) 08/20/17 22:00 Urine Ketones Negative mg/dL (NEGATIVE) 08/20/17 22:00 Urine Blood Negative (NEGATIVE) 08/20/17 22:00 Urine Nitrate Negative (NEGATIVE) 08/20/17 22:00 Urine Bilirubin Negative (NEGATIVE) 08/20/17 22:00 Urine Urobilinogen 0.2-1.0 mg/dL (0.2-1.0) 08/20/17 22:00 Ur Leukocyte Esterase Neg Esha/uL (Negative) 08/20/17 22:00 Urine RBC (Auto) 3 /hpf (0-3) 08/20/17 22:00 Urine Microscopic WBC < 1 /hpf (0-5) 08/20/17 22:00 Ur Squamous Epith Cells < 1 /hpf (0-5) 08/20/17 22:00 - Hospital Course Hospital Course: 81 yo M with PMH adenocarcinoma of colon (dx 05/06/17), gout, A-fib, HTN, HLD was admitted for 3 days as per pt's inspector boiler-oncologist Dr. Erna Bermeo, for infusion of chemotherapy (cycle #6) with oxaliplitin, fluorouracil and leucovorin. During the stay, he did not exhibit adverse effects of chemotherapy and tolerated infusions well via subclavian port. He has a follow up appointment with GI Dr. Henderson for repeat colonoscopy to help assess whether he is a surgical candidate at this time. Discharge Exam - Head Exam Head Exam: ATRAUMATIC, NORMAL INSPECTION, NORMOCEPHALIC - Eye Exam Eye Exam: EOMI, Normal appearance - ENT Exam ENT Exam: Mucous Membranes Moist - Respiratory Exam Respiratory Exam: Clear to PA & Lateral, NORMAL BREATHING PATTERN, UNREMARKABLE - Cardiovascular Exam Cardiovascular Exam: +S1, +S2 - GI/Abdominal Exam GI & Abdominal Exam: Normal Bowel Sounds, Unremarkable - Back Exam Back exam: NORMAL INSPECTION - Neurological Exam Neurological exam: Alert, Oriented x3 - Skin Skin Exam: Dry, Normal Color, Warm Discharge Plan - Discharge Medications Prescriptions: Metoprolol Tartrate [Lopressor] 25 mg PO BID #60 tab Probenecid 500 mg PO BID #60 tab - Follow Up Plan Condition: GOOD Disposition: HOME/ ROUTINE Instructions: Colorectal Cancer (DC) Additional Instructions: Please follow up with hardware test engineer at scheduled appt on 08/28.
== END 2017-08-21 10:46 | disposition home or self-care (01) | DRG 847 ==
LOC: H.MEDSURG1 11:24
PROVIDERS: ADMIT Emergency Medicine; ATTEND Emergency Medicine
DX: Z51.11 Encounter for antineoplastic chemotherapy (principal); C18.9 Malignant neoplasm of colon, unspecified; I48.91 Unspecified atrial fibrillation; J43.9 Emphysema, unspecified; I10 Essential (primary) hypertension; E78.5 Hyperlipidemia, unspecified; M10.9 Gout, unspecified; Z87.891 Personal history of nicotine dependence

== ENCOUNTER 2017-09-09 09:44 | Day surgery (SDC) | payer MEDICARE ==
[2017-08-26 10:43] VITALS: BMI 22.2
[2017-09-09] MEDS ORDERED: Lactated Ringer's 1,000 ML IV ONE (13:16)
--- NOTE | 2017-09-09 13:51 | CP.PCM.PN ---
<Ray Josue - Last Filed: 09/09/17 13:47> Subjective - Date & Time of Evaluation Date of Evaluation: 09/09/17 Time of Evaluation: 13:48 - Subjective Subjective: Pt seen and examined in endosuite Pt has no complaints getting a colonoscopy fro colon surveillance post diagnosis in 03/2017. Upon arrival his HR was in the 120-130 in a-fib w/ underlying RBBB He states that he did not take his BB in the AM Called Dr. Aguirre who is covering Dr. Bermeo He cleared the pt for colonoscopy with the heart rate of 120-130 Objective - Vital Signs/Intake and Output Vital Signs (last 24 hours): Temp Pulse Resp BP Pulse Ox 98 F 142 H 15 129/65 100 09/09/17 13:08 09/09/17 13:08 09/09/17 13:08 09/09/17 13:08 09/09/17 13:08 Intake and Output: 09/09/17 09/09/17 06:59 18:59 Intake Total 100 Balance 100 <Aris Henderson MD - Last Filed: 09/09/17 14:16> Objective - Vital Signs/Intake and Output Vital Signs (last 24 hours): Temp Pulse Resp BP Pulse Ox 98 F 142 H 15 129/65 100 09/09/17 13:08 09/09/17 13:08 09/09/17 13:08 09/09/17 13:08 09/09/17 13:08 Intake and Output: 09/09/17 09/09/17 06:59 18:59 Intake Total 200 Balance 200 Attending/Attestation - Attestation I have personally seen and examined this patient.: Yes I have fully participated in the care of the patient.: Yes I have reviewed all pertinent clinical information, including history, physical exam and plan: Yes Notes (Text): 09/09/17 14:14 81 yr old M with known history of A fib not on anticoagulation, RBBB, colon CA s /p chemotherapy presented for outpatint colonoscopy for f/u of cancer. He was in Rapid A fib with HR 130-140/min in endo. Discussed with Dr Sepulveda ( technical rep covering for Dr Laila Bermeo) to proceed with colonoscopy after giving IVF which were given at 100cc/hr. Patient tolerated procedure well. Will follow up with Dr Bermeo
[2017-09-09] MEDS ORDERED: Midazolam 2 MG/2 ML VIAL ONE (14:02)
[2017-09-09] MEDS ORDERED: Etomidate 20 mg/10ml Inj IV ONE (14:02)
[2017-09-09] MEDS ORDERED: Esmolol 100 mg/10ml Inj IV ONE (14:03)
[2017-09-09 14:23] VITALS: BP 109/59; PULSE 131; RESP 33; TEMP 97.8; O2SAT 96
[2017-09-09] MEDS ORDERED: Sodium Chloride 0.9% 1,000 ML IV SCH (14:30)
[2017-09-09] MEDS ORDERED: Lactated Ringer's 500 ML IV SCH (14:45)
== END 2017-09-09 14:47 | disposition home or self-care (01) ==
LOC: H.ENDO 09:44
PROVIDERS: ATTEND Internal Medicine Gastroenterology
DX: C18.9 Malignant neoplasm of colon, unspecified (principal); I48.2 Chronic atrial fibrillation; I10 Essential (primary) hypertension; Z85.038 Personal history of other malignant neoplasm of large intestine; D49.0 Neoplasm of unspecified behavior of digestive system; I45.10 Unspecified right bundle-branch block
CPT/HCPCS: 45380; J2250; J3010; J7040; J7120